=== PATIENT | male | born 1950 | race Caucasian/White ===

== ENCOUNTER 2018-12-23 08:46 | Observation (INO) ==
[2018-12-23] MEDS ORDERED: Ipratropium/Albuterol Neb 3 ML IH ONE (09:04)
[2018-12-23] MEDS ORDERED: 0.9 % Sodium Chloride 1,000 ML IVC ONE (09:04)
[2018-12-23 09:23] LABS: Basophils % 0.4 %; Hematocrit 32.1 % (37.5-50.1); Hemoglobin 10.6 g/dL (12.9-16.9); Immature Granulocytes % 0.4 % (0-4); Lymphocytes # 0.4 K/mcL (0.6-4.6); Lymphocytes % 8.5 %; Mean Corpuscular Hemoglobin 29.8 pg (28.0-33.3); Mean Corpuscular Volume 90.2 fL (83.0-100.0); Mean Platelet Volume 9.2 fL (9.4-12.4); Monocytes # 0.5 K/mcL (0.0-1.3); Monocytes % 11.3 %; Neutrophils # 3.7 K/mcL (1.6-8.9); Platelet Count 222 K/mcL (140-400); Red Blood Count 3.56 M/mcL (4.19-5.50); Red Cell Distribution Width 20.6 % (11.5-14.5); Segmented Neutrophils % 79.4 %
[2018-12-23 09:42] LABS: BUN/Creatinine Ratio 20 (6-26); Blood Urea Nitrogen 12 mg/dL (8-23); Calcium 8.5 mg/dL (8.6-10.3); Carbon Dioxide 28 mEq/L (23-29); Chloride 101 mEq/L (98-107); Glucose 99 mg/dL (70-105); Lactate Dehydrogenase 106 Units/L (140-271); Magnesium 1.8 mg/dL (1.6-2.6); Osmolality,Calculated 278 (280-300); Potassium 3.4 mEq/L (3.5-5.1); Sodium 134 mEq/L (136-145); eGFR For Non-African Americans > 60 (> 60)
--- NOTE | 2018-12-23 09:50 | Emergency Department Note ---
Disposition Clinical Impression: Hypotension Qualifiers: Hypotension type: unspecified hypotension type Qualified Code(s): I95.9 - Hypotension, unspecified Disposition: Admitted As Inpatient Condition: Undetermined Time of Disposition: 22:46 General Adult HPI - General Stated complaint: low bp Time Seen by Provider: 12/23/18 08:49 Source: patient Limitations: no limitations Nursing Notes Reviewed: Yes Vital Signs Reviewed: Yes - History of Present Illness HPI Narrative: 68-year-old male presenting from [place] [facility] for presyncopal episode. Patient with past medical history of lung cancer undergoing chemotherapy and radiation Patient stated that he was standing at his appointment today when he developed lightheadedness/dizziness, vision loss and tinnitus Patient's blood pressure was noted to be in the 60 systolic range was transported to the ED Upon presentation patient is normotensive, he is hemodynamically stable Patient with past medical history of asthma Denies any other past medical history Physical exam shows inspiratory next story wheezes Patient denies any other concerns or complaints at this time. Onset (ago): Just PLATE G[employer] AP[employer]ENTICE Pain Scale: 0 Associated symptoms: Reports: denies other symptoms - Related Data Home Medications Medication Instructions Recorded Confirmed Alendronate Sodium 70 mg PO MO 11/19/18 12/23/18 Calcium Carbonate 650 mg PO BID 11/19/18 12/23/18 Cholecalciferol (D-3) [Vitamin D] 2,000 units PO DAILY 11/19/18 12/23/18 Lisinopril [Zestril] 20 mg PO DAILY 11/19/18 12/23/18 hydroCHLOROthiazide 12.5 mg PO DAILY 11/19/18 12/23/18 [Hydrochlorothiazide] Albuterol Neb [Proventil Neb] 2.5 mg IH Q6H PRN 12/23/18 12/23/18 Albuterol Sulfate [Albuterol 2 puff PO Q4H PRN 12/23/18 12/23/18 Inhaler] Budesonide/Formoterol 160/4.5 2 puff IH BIDR 12/23/18 12/23/18 [Symbicort 160/4.5] Oxycodone HCl 5 mg PO Q6H PRN 12/23/18 12/23/18 Tiotropium [place] [Spiriva 4 gm IH DAILY 12/23/18 12/23/18 Respimat] Previous Rx's Medication Instructions Recorded Magic Mouthwash [Magic Mouthwash 10 ml PO QID PRN #240 ml 11/25/18 BLM] Ondansetron HCl 8 mg PO Q8H PRN #48 tablet 11/25/18 Prochlorperazine Maleate 10 mg PO Q6HR PRN #90 tablet 11/25/18 [Compazine] Dexamethasone [Decadron] 8 mg PO DAILY #24 tab 11/30/18 Allergies Allergy/AdvReac Type Severity Reaction Status Date / Time codeine Allergy Anaphylaxis Verified 12/23/18 22:22 fentanyl AdvReac Hallucinati Verified 12/23/18 22:22 ng All systems ED: reviewed and negative except as stated. Review of Systems: As Per HPI Constitutional: Denies: fever, chills Cardiovascular: Denies: chest pain Respiratory: Reports: dyspnea, wheezes Gastrointestinal: Reports: nausea. Denies: abdominal pain, vomiting, diarrhea, constipation, hematemesis, hematochezia Genitourinary: Denies: hematuria Musculoskeletal: Denies: back pain, neck pain Neurological: Reports: weakness. Denies: headache, numbness, paresthesias Past Medical History - Past Medical History Medical history: Reports: cancer, COPD, hypertension Psychiatric history: Reports: no psych history - Social History Smoking Status: Former smoker Smokeless Tobacco Status: No Alcohol use: Reports: none, heavy, recent Drug use: Reports: none Physical Exam - General Limitations: no limitations General appearance: alert, in no apparent distress - Head Head exam: atraumatic, normocephalic - Eye Eye exam: Present: normal appearance, PERRL, EOMI. Absent: scleral icterus - Neck Neck exam: Present: normal inspection, trachea midline - Chest Chest inspection: Present: normal inspection, symmetric chest wall rise. Absent: tenderness - Respiratory Respiratory exam: Present: wheezes. Absent: respiratory distress, stridor, accessory muscle use, prolonged expiratory phase - Cardiovascular Cardiovascular exam: Present: regular rate, normal rhythm, normal heart sounds, +S1, +S2. Absent: irregular rhythm, systolic murmur, diastolic murmur, JVD, +S3, +S4 - Abdominal Exam Abdominal exam: Present: soft, Non-Tender, normal bowel sounds. Absent: distention, guarding, rebound, rigidity, organomegaly - Extremities Exam Extremities exam: Present: normal inspection. Absent: pedal edema - Neurological Exam Neurological exam: Present: alert, oriented X3 - Psychiatric Psychiatric exam: Present: normal affect, normal mood - Skin Skin exam: Present: warm, dry, intact, normal color. Absent: rash, cyanosis, diaphoresis, erythema, pallor, mottled Course Course Narrative: CBC, BMP, magnesium, LDH, troponin Chest x-ray EKG/old EKG - Reevaluation(s) Reevaluation #1: Case patient continues to be short of breath with tachycardia and tachypnea despite DuoNeb's and steroid therapy. Concern for pulmonary embolism in this setting of recent cancer treatment We will obtain a d-dimer at this time due to moderate Wells score risk factor criterion. We will consult oncology for further recommendations. Time: 10:29 Vital Signs Temperature 98.5 F 12/23/18 08:56 Pulse Rate 107 12/23/18 08:56 Respiratory Rate 18 12/23/18 08:56 Blood Pressure 118/76 12/23/18 08:56 O2 Sat by Pulse Oximetry 98 12/23/18 08:56 Temperature 98.1 F 12/23/18 19:06 Pulse Rate 95 12/23/18 19:06 Respiratory Rate 15 12/23/18 19:06 Blood Pressure 145/76 12/23/18 19:06 O2 Sat by Pulse Oximetry 91 12/23/18 20:30 Oxygen Delivery Oxygen Delivery Nasal Cannula Medical Decision Making - [facility] Narrative Medical decision making narrative: Laboratory and imaging results are negative for acute pathology Patient continued to have tachycardia and dyspnea despite DuoNeb's Patient admitted to hospitalist medicine service for further management and tr eatment - Lab Data Lab results reviewed: Yes I reviewed the patient's lab results. Result diagrams: 12/23/18 09:12 12/23/18 09:12 Lab Results 12/23/18 12/23/18 12/23/18 Range/Units 09:12 09:12 09:12 WBC 4.6 (4.3-11.1) K/mcL RBC 3.56 L (4.19-5.50) M/mcL Hgb 10.6 L (12.9-16.9) g/dL Hct 32.1 L (37.5-50.1) % MCV 90.2 (83.0-100.0) fL MCH 29.8 (28.0-33.3) pg MCHC 33.0 (31.6-35.5) g/dL RDW 20.6 H (11.5-14.5) % Plt Count 222 (140-400) K/mcL MPV 9.2 L (9.4-12.4) fL Immature Gran % 0.4 (0-4) % Seg Neutrophils % 79.4 % Lymphocytes % 8.5 % Monocytes % 11.3 % Eosinophils % 0.0 % Basophils % 0.4 % Neutrophils # 3.7 (1.6-8.9) K/mcL Lymphocytes # 0.4 L (0.6-4.6) K/mcL Monocytes # 0.5 (0.0-1.3) K/mcL Eosinophils # 0.0 (0.0-0.6) K/mcL Basophils # 0.0 (0.0-0.2) K/mcL D-Dimer (0-500) ng/mLFEU Sodium 134 L (136-145) mEq/L Potassium 3.4 L (3.5-5.1) mEq/L Chloride 101 (98-107) mEq/L Carbon Dioxide 28 (23-29) mEq/L BUN 12 (8-23) mg/dL Creatinine 0.60 L (0.70-1.30) mg/dL Est GFR ( Amer) > 60 (> 60) Est GFR (Non-Af Amer) > 60 (> 60) BUN/Creatinine Ratio 20 (6-26) Glucose 99 (70-105) mg/dL Calculated Osmolality 278 L (280-300) Calcium 8.5 L (8.6-10.3) mg/dL Magnesium 1.8 (1.6-2.6) mg/dL Lactate Dehydrogenase 106 L (140-271) Units/L Troponin I < 0.03 (< 0.04) ng/mL 12/23/18 Range/Units 09:12 WBC (4.3-11.1) K/mcL RBC (4.19-5.50) M/mcL Hgb (12.9-16.9) g/dL Hct (37.5-50.1) % MCV (83.0-100.0) fL MCH (28.0-33.3) pg MCHC (31.6-35.5) g/dL RDW (11.5-14.5) % Plt Count (140-400) K/mcL MPV (9.4-12.4) fL Immature Gran % (0-4) % Seg Neutrophils % % Lymphocytes % % Monocytes % % Eosinophils % % Basophils % % Neutrophils # (1.6-8.9) K/mcL Lymphocytes # (0.6-4.6) K/mcL Monocytes # (0.0-1.3) K/mcL Eosinophils # (0.0-0.6) K/mcL Basophils # (0.0-0.2) K/mcL D-Dimer 1223 H (0-500) ng/mLFEU Sodium (136-145) mEq/L Potassium (3.5-5.1) mEq/L Chloride (98-107) mEq/L Carbon Dioxide (23-29) mEq/L BUN (8-23) mg/dL Creatinine (0.70-1.30) mg/dL Est GFR ( Amer) (> 60) Est GFR (Non-Af Amer) (> 60) BUN/Creatinine Ratio (6-26) Glucose (70-105) mg/dL Calculated Osmolality (280-300) Calcium (8.6-10.3) mg/dL Magnesium (1.6-2.6) mg/dL Lactate Dehydrogenase (140-271) Units/L Troponin I (< 0.04) ng/mL - Radiology Data Radiology results reviewed: Yes I reviewed the patient's radiology results. Chest X-Ray 12/23/18 09:04 IMPRESSION: 1. Improving left hilar mass and improving left upper lobe irregular opacities some of which likely represented postobstructive pneumonia. 2. Interval placement of a left mainstem bronchial stent which appears to be in appropriate position. 3. No acute abnormality. D/ / 12/23/2018 09:43:06 Tim Simons MD / Thelma Rivera Interpreting Provider: Tim Simons MD - EKG Data EKG #1 EKG attestation: Yes I reviewed and interpreted this EKG. EKG results narrative: Patient EKG shows sinus tachycardia with a first degree AV lito block. Ventricular rate is 103 bpm, RI interval is 213 ms, QRS duration of 90 ms, QT/QTc interval 3/447 ms respectively. There are no significant ST segment elevations, depressions, pathologic Q waves, abnormal T-wave inversions, nor any other signs of acute ischemic change. At this time there is no prior EKG available for comparison.
[2018-12-23] MEDS ORDERED: methylPREDNISolone 125 MG/2 ML VIAL IVP ONE (09:51)
--- NOTE | 2018-12-23 09:54 | Emergency Department Note ---
Disposition Clinical Impression: Hypotension Qualifiers: Hypotension type: unspecified hypotension type Qualified Code(s): I95.9 - Hypotension, unspecified Disposition: Still a Patient [facility]Primary Care Provider[facility] - General Adult HPI - General Chief complaint: ED Weakness Stated complaint: low bp Time Seen by Provider: 12/23/18 08:49 Source: patient Limitations: no limitations Nursing Notes Reviewed: Yes Vital Signs Reviewed: Yes - History of Present Illness HPI Narrative: Attestation note: Patient was seen with the emergency medicine resident/nurse practitioner/physician timber management assistant/transitional resident/medical student: Dr. Niles Pnoce I have personally performed a face to face evaluation on this patient. I have reviewed and agree with history and physical examination patient management and disposition. Briefly the salient points of the case are as follows: 68-year-old male recently diagnosed with lung cancer on week 3 of chemotherapy was at the cancer patient will get DuoNeb treatments chest x-ray PA and lateral troponin CBC BMP. Patient will also get over liter normal saline fluid bolus. We will then consult with oncology for recommendations. Disposition pending about to get another round of his vital signs he said that he felt like near syncopal with ringing in the ears dimming of his vision his systolic was 60 something per report. They transported by ambulance here upon arrival systolic has remained 118 or higher physical examination such some faint scattered wheezes is benign Pain Scale: 0 - Related Data Home Medications Medication Instructions Recorded Confirmed Alendronate Sodium 70 mg PO Q1W 11/19/18 11/19/18 Calcium Carbonate 650 mg PO BID 11/19/18 11/19/18 Cholecalciferol (D-3) [Vitamin D] 2 tab PO DAILY 11/19/18 11/19/18 Ipratropium/Albuterol Sulfate 3 ml IH Q4H PRN 11/19/18 11/19/18 [Iprat-Albut 0.5-3(2.5) mg/3 ml] Lisinopril [Zestril] 1.5 tab PO DAILY 11/19/18 11/19/18 Promethazine HCl 25 mg PO Q6H PRN 11/19/18 11/19/18 Tamsulosin HCl [Flomax] 0.4 mg PO QPM 11/19/18 11/19/18 Tiotropium [Spiriva] 18 mcg IH DAILY 11/19/18 11/19/18 hydroCHLOROthiazide 1.5 tab PO DAILY 11/19/18 11/19/18 [Hydrochlorothiazide] Previous Rx's Medication Instructions Recorded guaiFENesin [Mucus Relief ER] 600 mg PO BID PRN #60 tab.er.12h 11/19/18 levoFLOXacin [Levaquin] 750 mg PO DAILY #14 tablet 11/19/18 Magic Mouthwash [Magic Mouthwash 10 ml PO QID PRN #240 ml 11/25/18 BLM] Ondansetron HCl 8 mg PO Q8H PRN #48 tablet 11/25/18 Prochlorperazine Maleate 10 mg PO Q6HR PRN #90 tablet 11/25/18 [Compazine] Dexamethasone [Decadron] 8 mg PO DAILY #24 tab 11/30/18 OxyCODONE Immed Rel [Roxicodone 5 5 mg PO Q6HR PRN 15 Days #60 tablet 12/16/18 MG] Allergies Allergy/AdvReac Type Severity Reaction Status Date / Time codeine Allergy See Verified 11/19/18 11:17 Comments fentanyl AdvReac Agitated Verified 11/19/18 11:11 Past Medical History - Past Medical History Medical history: Reports: cancer, COPD, hypertension Psychiatric history: Reports: no psych history - Social History Smoking Status: Former smoker Smokeless Tobacco Status: No Alcohol use: Reports: none, heavy, recent Drug use: Reports: none Physical Exam - General Limitations: no limitations General appearance: alert, in no apparent distress Course Vital Signs Temperature 98.5 F 12/23/18 08:56 Pulse Rate 107 12/23/18 08:56 Respiratory Rate 18 12/23/18 08:56 Blood Pressure 118/76 12/23/18 08:56 O2 Sat by Pulse Oximetry 98 12/23/18 08:56 Temperature 98.5 F 12/23/18 08:56 Pulse Rate 107 12/23/18 08:56 Respiratory Rate 18 12/23/18 09:42 Blood Pressure 118/76 12/23/18 08:56 O2 Sat by Pulse Oximetry 98 12/23/18 09:42 Oxygen Delivery Oxygen Delivery Nasal Cannula Medical Decision Making - Lab Data Result diagrams: 12/23/18 09:12 12/23/18 09:12 Lab Results 12/23/18 12/23/18 12/23/18 Range/Units 09:12 09:12 09:12 WBC 4.6 (4.3-11.1) K/mcL RBC 3.56 L (4.19-5.50) M/mcL Hgb 10.6 L (12.9-16.9) g/dL Hct 32.1 L (37.5-50.1) % MCV 90.2 (83.0-100.0) fL MCH 29.8 (28.0-33.3) pg MCHC 33.0 (31.6-35.5) g/dL RDW 20.6 H (11.5-14.5) % Plt Count 222 (140-400) K/mcL MPV 9.2 L (9.4-12.4) fL Immature Gran % 0.4 (0-4) % Seg Neutrophils % 79.4 % Lymphocytes % 8.5 % Monocytes % 11.3 % Eosinophils % 0.0 % Basophils % 0.4 % Neutrophils # 3.7 (1.6-8.9) K/mcL Lymphocytes # 0.4 L (0.6-4.6) K/mcL Monocytes # 0.5 (0.0-1.3) K/mcL Eosinophils # 0.0 (0.0-0.6) K/mcL Basophils # 0.0 (0.0-0.2) K/mcL Sodium 134 L (136-145) mEq/L Potassium 3.4 L (3.5-5.1) mEq/L Chloride 101 (98-107) mEq/L Carbon Dioxide 28 (23-29) mEq/L BUN 12 (8-23) mg/dL Creatinine 0.60 L (0.70-1.30) mg/dL Est GFR ( Amer) > 60 (> 60) Est GFR (Non-Af Amer) > 60 (> 60) BUN/Creatinine Ratio 20 (6-26) Glucose 99 (70-105) mg/dL Calculated Osmolality 278 L (280-300) Calcium 8.5 L (8.6-10.3) mg/dL Magnesium 1.8 (1.6-2.6) mg/dL Lactate Dehydrogenase 106 L (140-271) Units/L Troponin I < 0.03 (< 0.04) ng/mL
[2018-12-23] MEDS ORDERED: Isovue-370 500 ML BOTTLE IVP ONE (10:59)
[2018-12-23] MEDS ORDERED: Ondansetron 4 MG/2 ML VIAL IVP PRN (15:23)
[2018-12-23] MEDS ORDERED: MOM Conc 10 ML UD.LIQ PO PRN (15:23)
[2018-12-23] MEDS ORDERED: *HR* Promethazine 25 MG/ML VIAL IVP PRN (15:23)
[2018-12-23] MEDS ORDERED: Mag Hydrox/Al Hydrox/Simeth 30 ML UDC PO PRN (15:23)
[2018-12-23] MEDS ORDERED: Naloxone 0.4 MG/ML INJ IVP PRN (15:23)
[2018-12-23] MEDS ORDERED: Acetaminophen 325 MG TABLET PO PRN (15:23)
[2018-12-23] MEDS ORDERED: traMADol 50 MG TABLET PO PRN (15:23)
[2018-12-23] MEDS ORDERED: Ipratropium/Albuterol Neb 3 ML IH PRN (15:26)
[2018-12-23] MEDS ORDERED: Prochlorperazine 10 MG/2 ML VIAL IVP PRN (15:28)
[2018-12-23] MEDS ORDERED: Ringers Solution, Lactated 2,000 ML IVC SCH (15:30)
--- NOTE | 2018-12-23 15:34 | Internal Med History&Physical ---
Date of Encounter: 12/23/18 Time of Encounter: 15:34 Internal Medicine - H&P: HPI Admitted From: Home Plans for Post Hospital Care: Home History of present illness: Mr. Arevalo is a 68 year old male with past medical history of hypertension, recently diagnosed lung cancer, and a current smoker presented with generalized weakness, lightheadedness, and presyncope. Patient recently was diagnosed with lung cancer and currently undergone chemotherapy and irradiation. He reported that he did not feel well this morning after up. He had appointment with oncology today, while in the waiting area, he had several episodes of presyncope and lightheadedness. The blood pressure was taking and was reported to be at the 60s. Patient was transferred to [place] ED. He has no associated chest pain, shortness of breath, cough with sputum production, and palpitation. He has been eating and drinking well in the past couple days. He denies abdominal pain, nausea/vomiting, or diarrhea. His urine volume has not been changed. While in the ED, patient received IV fluid bolus, his blood pressure was within normal limits. However, and orthostatic vital signs recorded at the ED was positive. Labs showed elevated d-dimer, decreased sodium and potassium. CTA of chest was performed which was negative for pulmonary embolism. Bilateral wheezing was heard on physical exam by ED providers, patient received IV steroids and bronchodilators, he will be admitted for further evaluation and management. CODE STATUS discussed with patient, he wishes to be full code. Past Med Surg Social Fam HX - Past Medical History Medical history: cancer, COPD, hypertension Additional medical history: left CA tumor Psychiatric history: no psych history - Past Surgical History Additional surgical history: left tumor intervention for CA involving stent placement- 10/2018 - Social History Smoking Status: Former smoker Smokeless Tobacco Status: No Alcohol use: none, heavy, recent Drug use: none Internal Medicine - H&P: Meds Alendronate Sodium 70 mg PO Q1W 11/19/18 [History] Calcium Carbonate 650 mg PO BID 11/19/18 [History] Cholecalciferol (D-3) [Vitamin D] 2 tab PO DAILY 11/19/18 [History] Ipratropium/Albuterol Sulfate [Iprat-Albut 0.5-3(2.5) mg/3 ml] 3 ml IH Q4H PRN 11/19/18 [History] Lisinopril [Zestril] 1.5 tab PO DAILY 11/19/18 [History] Promethazine HCl 25 mg PO Q6H PRN 11/19/18 [History] Tamsulosin HCl [Flomax] 0.4 mg PO QPM 11/19/18 [History] Tiotropium [Spiriva] 18 mcg IH DAILY 11/19/18 [History] guaiFENesin [Mucus Relief ER] 600 mg PO BID PRN #60 tab.er.12h 11/19/18 [Rx] hydroCHLOROthiazide [Hydrochlorothiazide] 1.5 tab PO DAILY 11/19/18 [History] levoFLOXacin [Levaquin] 750 mg PO DAILY #14 tablet 11/19/18 [Rx] Magic Mouthwash [Magic Mouthwash BLM] 10 ml PO QID PRN #240 ml 11/25/18 [Rx] Ondansetron HCl 8 mg PO Q8H PRN #48 tablet 11/25/18 [Rx] Prochlorperazine Maleate [Compazine] 10 mg PO Q6HR PRN #90 tablet 11/25/18 [Rx] Dexamethasone [Decadron] 8 mg PO DAILY #24 tab 11/30/18 [Rx] OxyCODONE Immed Rel [Roxicodone 5 MG] 5 mg PO Q6HR PRN 15 Days #60 tablet 12/16/18 [Rx] Allergy/AdvReac Type Severity Reaction Status Date / Time codeine Allergy See Verified 11/19/18 11:17 Comments fentanyl AdvReac Agitated Verified 11/19/18 11:11 All Systems PM: A 10-system review of systems was performed and is negative for pertinent findings except as documented above in the HPI. Review of systems: REVIEW OF SYSTEMS: CONSTITUTIONAL: No weight loss, fever, chills, weakness or fatigue. HEENT: Eyes: No visual loss, blurred vision, double vision or yellow sclerae. Ears, Nose, Throat: No hearing loss, sneezing, congestion, runny nose or sore throat. SKIN: No rash or itching. CARDIOVASCULAR: see HPI. RESPIRATORY: No shortness of breath, cough or sputum. see HPI. GASTROINTESTINAL: No anorexia, nausea, vomiting or diarrhea. No abdominal pain or blood. GENITOURINARY: No dysuria, urgency, or frequency. NEUROLOGICAL: No headache, dizziness, syncope, paralysis, ataxia, numbness or tingling in the extremities. No change in bowel or bladder control. MUSCULOSKELETAL: No muscle, back pain, joint pain or stiffness. HEMATOLOGIC: No anemia, bleeding or bruising. LYMPHATICS: No enlarged nodes. No history of splenectomy. PSYCHIATRIC: No history of depression or anxiety. ENDOCRINOLOGIC: No reports of sweating, cold or heat intolerance. No polyuria or polydipsia. - Constitutional Vitals: Temp Pulse Resp BP Pulse Ox 98.5 F 94 24 152/81 99 12/23/18 08:56 12/23/18 13:50 12/23/18 13:50 12/23/18 13:50 12/23/18 13:50 General appearance: Present: A&O X 3 Exam: PHYSICAL EXAMINATION: GENERAL APPEARANCE: The patient is alert, oriented and in no acute distress. HEENT: Head is normocephalic. The sinuses are nontender. Pupils are equal and reactive. The nares are patent. Oropharynx clear without lesions. NECK: Supple without lymphadenopathy. HEART: Regular rate and rhythm. LUNGS: bilateral diffuse wheezes are heard. ABDOMEN: Soft, nontender, nondistended with good bowel sounds heard. Inguinal area is normal. EXTREMITIES: Without cyanosis, clubbing or edema. NEUROLOGICAL: Gross nonfocal. SKIN: Warm and dry without any rash. Internal Med - H&P Results - Labs CBC & Chem 7: 12/23/18 09:12 12/23/18 09:12 Labs: Short CBC 12/23/18 Range/Units 09:12 WBC 4.6 (4.3-11.1) K/mcL Hgb 10.6 L (12.9-16.9) g/dL Hct 32.1 L (37.5-50.1) % Plt Count 222 (140-400) K/mcL Neutrophils # 3.7 (1.6-8.9) K/mcL BMP 12/23/18 09:12 Sodium 134 L Potassium 3.4 L Chloride 101 Carbon Dioxide 28 BUN 12 Creatinine 0.60 L Glucose 99 Calcium 8.5 L Cardiac Enzymes 12/23/18 Range/Units 09:12 Troponin I < 0.03 (< 0.04) ng/mL - Impressions ITS Impressions Chest X-Ray 12/23/18 09:04 IMPRESSION: 1. Improving left hilar mass and improving left upper lobe irregular opacities some of which likely represented postobstructive pneumonia. 2. Interval placement of a left mainstem bronchial stent which appears to be in appropriate position. 3. No acute abnormality. D/ / 12/23/2018 09:43:06 Tim Simons MD / Thelma Rivera Interpreting Provider: Tim Simons MD Chest CTA 12/23/18 10:59 IMPRESSION: 1. No pulmonary embolism. No acute abnormality in the chest. 2. Stable left hilar mass and hypermetabolic left lower lobe pulmonary nodules, which have been recently evaluated with PET-CT. 3. The left mainstem bronchial stent contains secretions, but is otherwise patent. D/ / 12/23/2018 13:03:35 Spencer Cano MD / nichole Interpreting Provider: Spencer Cano MD - Assessment and Plan (1) Pre-syncope Current Visit: Yes Status: Acute Assessment and plan: 68-year-old male recently diagnosed with lung cancer, currently undergone chemotherapy and radiation, presented with several episodes of lightheadedness and presyncope. BP was reported to be low prior to admission. CTA was negative for PE. Positive orthostatic vital signs. Underlying etiology is likely due to physical deconditioning secondary to chemotherapy and radiation. Patient does not have history of cardiovascular disease. Troponin was negative on the first set, EKG has no acute ST-T change. Patient recently was started on narcotics for lung cancer, medication side effect possibly contributes. - Continue cycling troponin, telemetry monitoring, EKG as needed. - Echo in the morning. Carotid Doppler in the morning. - TSH, free T4, random cortisol in the morning. - Encouraged to increase salt intake and drink plenty of water. (2) Current smoker Current Visit: No Status: Chronic Assessment and plan: Smoking cessation discussed with patient, he verbally understands. (3) Hypertension Current Visit: No Status: Chronic Assessment and plan: Hold her blood pressure medicine, resume once indicated. Qualifiers: Hypertension type: essential hypertension Qualified Code(s): I10 - Essential (primary) hypertension (4) COPD (chronic obstructive pulmonary disease) Current Visit: Yes Status: Chronic Assessment and plan: Respiratory status stable, continue home medications. Qualifiers: Emphysema type: unspecified Qualified Code(s): J43.9 - Emphysema, unspecified (5) Hypokalemia Current Visit: Yes Status: Acute Assessment and plan: Replaced, repeat a BMP in a.m. (6) Lung cancer Current Visit: No Status: Chronic Assessment and plan: Oncology following. Qualifiers: Laterality: unspecified laterality Lung location: unspecified part of lung Qualified Code(s): C34.90 - Malignant neoplasm of unspecified part of unspec ified bronchus or lung (7) DVT prophylaxis Current Visit: Yes Status: Acute Assessment and plan: Heparin subcutaneous. - Time Spent With Patient Total time spent is greater than 50% in coordination of care (as documented) at patient's floor/unit and/or counseling patient: Greater than 35 minutes
[2018-12-23] MEDS: *HR* Heparin 5,000 UNIT/ML VIAL SQ SCH (20:21)
[2018-12-23] MEDS ORDERED: Perflutren Lipid Microsphere 1.3 ML in 0.9 % Sodium Chloride 8.7 ML IVP ONE (20:33)
[2018-12-23] MEDS: Ipratropium/Albuterol Neb 3 ML IH SCH ×2 (20:38→22:02)
[2018-12-23] MEDS: Budesonide/Formoterol 160/4.5 1 PUFF INH IH SCH (22:02)
[2018-12-23] MEDS ORDERED: Acetaminophen IV 500 MG/50 ML INFUS..BTL IVPB ONE (23:18)
[2018-12-24] MEDS: Ipratropium/Albuterol Neb 3 ML IH SCH ×2 (02:32→10:48)
[2018-12-24 05:37] LABS: Hemoglobin 9.4 g/dL (12.9-16.9); Immature Granulocytes % 0.6 % (0-4); Lymphocytes # 0.2 K/mcL (0.6-4.6); Lymphocytes % 4.5 %; Mean Corpuscular HGB Conc 33.6 g/dL (31.6-35.5); Mean Corpuscular Hemoglobin 29.7 pg (28.0-33.3); Mean Corpuscular Volume 88.3 fL (83.0-100.0); Mean Platelet Volume 9.3 fL (9.4-12.4); Monocytes # 0.5 K/mcL (0.0-1.3); Monocytes % 10.7 %; Neutrophils # 4.2 K/mcL (1.6-8.9); Platelet Count 198 K/mcL (140-400); Red Blood Count 3.17 M/mcL (4.19-5.50); Red Cell Distribution Width 20.4 % (11.5-14.5); Segmented Neutrophils % 84.2 %
[2018-12-24 05:53] LABS: Alanine Aminotransferase 11 Units/L (7-52); Albumin 3.1 g/dL (3.5-5.7); Albumin/Globulin Ratio 1.3 (1.1-2.2); Alkaline Phosphatase 75 Units/L (34-104); Aspartate Amino Transferase 16 Units/L (13-39); BUN/Creatinine Ratio 35 (6-26); Bilirubin,Total 0.4 mg/dL (0.3-1.0); Blood Urea Nitrogen 13 mg/dL (8-23); Calcium 8.2 mg/dL (8.6-10.3); Carbon Dioxide 28 mEq/L (23-29); Chloride 100 mEq/L (98-107); Globulin 2.4 g/dL (2.4-3.5); Glucose 108 mg/dL (70-105); Osmolality,Calculated 273 (280-300); Potassium 4.3 mEq/L (3.5-5.1); Sodium 131 mEq/L (136-145); Total Protein 5.5 g/dL (6.4-8.9); eGFR For Non-African Americans > 60 (> 60)
[2018-12-24 06:06] LABS: Thyroid Stimulating Hormone 0.872 mcIU/mL (0.340-5.600)
[2018-12-24] MEDS: *HR* Heparin 5,000 UNIT/ML VIAL SQ SCH (07:50)
[2018-12-24] MEDS ORDERED: Nicotine 14 MG PATCH.TD24 TD SCH (09:00)
[2018-12-24] MEDS ORDERED: Aspirin Enteric Coated 81 MG Tablet PO SCH (09:00)
[2018-12-24] MEDS ORDERED: Cholecalciferol (D-3) 1,000 UNIT TABLET PO SCH (09:00)
[2018-12-24] MEDS ORDERED: Tiotropium 18 MCG inhalation IH SCH (10:00)
--- NOTE | 2018-12-24 10:02 | Discharge Summary ---
- NOTES TO OUTPATIENT PROVIDER Notes to Outpatient Provider: f/u with PCP and oncology within a week. Date of Encounter: 12/24/18 Time of Encounter: 09:59 - Discharge Diagnosis (1) Pre-syncope Priority: Primary Status: Acute (2) Current smoker Priority: Secondary Status: Chronic (3) Hypertension Priority: Secondary Status: Chronic Qualifiers: Hypertension type: essential hypertension Qualified Code(s): I10 - Essential (primary) hypertension (4) COPD (chronic obstructive pulmonary disease) Priority: Secondary Status: Chronic Qualifiers: Emphysema type: unspecified Qualified Code(s): J43.9 - Emphysema, unspecified (5) Hypokalemia Priority: Primary Status: Resolved (6) Lung cancer Priority: Secondary Status: Chronic Qualifiers: Laterality: unspecified laterality Lung location: unspecified part of lung Qualified Code(s): C34.90 - Malignant neoplasm of unspecified part of unspecified bronchus or lung (7) DVT prophylaxis Priority: Primary Status: Acute Hospital course: Mr. Arevalo is a 68 year old male with past medical history of hypertension, recently diagnosed lung cancer, and a current smoker presented with generalized weakness, lightheadedness, and presyncope. Patient recently was diagnosed with lung cancer and currently undergone chemotherapy and irradiation. He reported that he did not feel well this morning after up. He had appointment with oncology today, while in the waiting area, he had several episodes of presyncope and lightheadedness. The blood pressure was taking and was reported to be at the 60s. Patient was transferred to [facility] ED. He has no associated chest pain, shortness of breath, cough with sputum production, and palpitation. He has been eating and drinking well in the past couple days. He denies abdominal pain, nausea/vomiting, or diarrhea. His urine volume has not been changed. While in the ED, patient received IV fluid bolus, his blood pressure was within normal limits. However, and orthostatic vital signs recorded at the ED was positive. Labs showed elevated d-dimer, decreased sodium and potassium. CTA of chest was performed which was negative for pulmonary embolism. Bilateral wheezi ng was heard on physical exam by ED providers, patient received IV steroids and bronchodilators, he will be admitted for further evaluation and management. Further workup for syncope revealed negative serial troponin, unremarkable EKG without ST-T change, unremarkable unremarkable echocardiogram with ejection fraction 65% and mild LV DD, no valvular disease. Labs showed normal TSH and a slightly low T4. Random cortisol in a.m. was low, which is most likely secondary to recent dexamethasone usage. Patient was encouraged to increase salt intake and maintain well hydration. Patient is discharged home today, he will continue to follow-up PCP and oncology as scheduled. Discharge discussed with: patient Time spent discussing smoking cessation with patient: more than 10 minutes - Time Spent with Patient Total time spent providing and/or coordinating discharge services: Time spent: Greater than 30 minutes - Discharge Medications Prescriptions: Continued Alendronate Sodium 70 mg PO MO Lisinopril [Zestril] 20 mg PO DAILY Cholecalciferol (D-3) [Vitamin D] 2,000 units PO DAILY Calcium Carbonate 650 mg PO BID Prochlorperazine Maleate [Compazine] 10 mg PO Q6HR PRN #90 tablet PRN Reason: Nausea Magic Mouthwash [Magic Mouthwash BLM] 10 ml PO QID PRN #240 ml PRN Reason: Mouth Irritation Ondansetron HCl 8 mg PO Q8H PRN #48 tablet PRN Reason: Nausea Dexamethasone [Decadron] 8 mg PO DAILY #24 tab Budesonide/Formoterol 160/4.5 [Symbicort 160/4.5] 2 puff IH BIDR Tiotropium [place] [Spiriva Respimat] 4 gm IH DAILY Albuterol Neb [Proventil Neb] 2.5 mg IH Q6H PRN PRN Reason: BREATHING Albuterol Sulfate [Albuterol Inhaler] 2 puff PO Q4H PRN PRN Reason: Shortness Of Breath Oxycodone HCl 5 mg PO Q6H PRN PRN Reason: Pain Discontinued hydroCHLOROthiazide [Hydrochlorothiazide] 12.5 mg PO DAILY Home Medications: Alendronate Sodium 70 mg PO MO 11/19/18 [History] Calcium Carbonate 650 mg PO BID 11/19/18 [History] Cholecalciferol (D-3) [Vitamin D] 2,000 units PO DAILY 11/19/18 [History] Lisinopril [Zestril] 20 mg PO DAILY 11/19/18 [History] Magic Mouthwash [Magic Mouthwash BLM] 10 ml PO QID PRN #240 ml 11/25/18 [Rx] Ondansetron HCl 8 mg PO Q8H PRN #48 tablet 11/25/18 [Rx] Prochlorperazine Maleate [Compazine] 10 mg PO Q6HR PRN #90 tablet 11/25/18 [Rx] Dexamethasone [Decadron] 8 mg PO DAILY #24 tab 11/30/18 [Rx] Albuterol Neb [Proventil Neb] 2.5 mg IH Q6H PRN 12/23/18 [History] Albuterol Sulfate [Albuterol Inhaler] 2 puff PO Q4H PRN 12/23/18 [History] Budesonide/Formoterol 160/4.5 [Symbicort 160/4.5] 2 puff IH BIDR 12/23/18 [History] Oxycodone HCl 5 mg PO Q6H PRN 12/23/18 [History] Tiotropium [place] [Spiriva Respimat] 4 gm IH DAILY 12/23/18 [History] Allergies/Adverse Reactions: Allergy/AdvReac Type Severity Reaction Status Date / Time codeine Allergy Anaphylaxis Verified 12/23/18 22:22 fentanyl AdvReac Hallucinati Verified 12/23/18 22:22 ng Date of admission: 12/23/18 15:15 [facility] physician: [facility] Consults: 12/23/18 10:45 Consult to Oncology [CONS] Stat Consulting Provider: [facility] Reason for Consult: History of lung cancer on chemotherapy/rads Shortness of breath Hypotension, presyncopal episode. Time Notified: 10:46 Call Completed: Yes 12/23/18 17:31 Consult to Pastoral Services [CONS] Routine Comment: Anticipated date of discharge: 12/24/18 - Constitutional Vitals: Temp Pulse Resp BP Pulse Ox 97.6 F 74 16 142/77 95 12/24/18 06:33 12/24/18 06:33 12/24/18 06:33 12/24/18 06:33 12/24/18 06:33 General appearance: Present: A&O X 3 Exam: PHYSICAL EXAMINATION: GENERAL APPEARANCE: The patient is alert, oriented and in no acute distress. HEENT: Head is normocephalic. The sinuses are nontender. Pupils are equal and reactive. The nares are patent. Oropharynx clear without lesions. NECK: Supple without lymphadenopathy. HEART: Regular rate and rhythm. LUNGS: bilateral diffuse wheezes are heard. ABDOMEN: Soft, nontender, nondistended with good bowel sounds heard. Inguinal area is normal. EXTREMITIES: Without cyanosis, clubbing or edema. NEUROLOGICAL: Gross nonfocal. SKIN: Warm and dry without any rash. - Patient Status Disposition: Home, Self-Care Condition: Fair Functional capacity at discharge: independent ambulation Overall status at discharge: patient is progressing back to baseline - Discharge Instructions Follow Up With: [facility] [Primary Care Provider] - - Diet and Activity Activity: increase activity as tolerated Diet: advance to your usual diet
[2018-12-24 10:11] VITALS: BP 137/79
[2018-12-24] MEDS: Budesonide/Formoterol 160/4.5 1 PUFF INH IH SCH (10:48)
--- NOTE | 2018-12-24 12:06 | Oncology Inp Consult Note ---
Date of Encounter: 12/24/18 Time of Encounter: 14:00 Assessment and Plan (1) Lung cancer Status: Chronic Assessment and plan: Squamous cell carcinoma status post bronchoscopy biopsy of the left hilar mass left upper lobe bronchial washings, consolidation, recurrent pneumonia episode recently. PET uptake lt hilar mass, other nodules cavitary infectious likely than mets. Lytic lesion iliac-wo uptake. MRI brain neg [id number], stage IIb s/p BINDERY OPERATOR low dose carbbo taxol wk1--12/14/18, Was to continue with wkly Rx, patient was feeling very wk when he returned 12/23/18 for treatment Hypotension, A fib-tachycardia, SOB--will be further evaluated in the ER. R/O PE?COPD exacerbation/dehydration History of A. fib PTSD depression, on medications. Will be evaluated in the hospital and f/u. Plan d.w patient bedside Qualifiers: Laterality: unspecified laterality Lung location: unspecified part of lung Qualified Code(s): C34.90 - Malignant neoplasm of unspecified part of unspecified bronchus or lung - Data of Consult Requesting Physician: Kristyn Tapia MD Primary Care Provider: [facility] - Consult Narrative Reason for consult: lung ca, hypotension History of present illness: HPI 68-year-old male with medical history significant for hypertension, atrial fibrillation, esophageal reflux, depression, posttraumatic stress disorder, currently on home oxygen, recurrent episodes, hospitalization for pneumonia since beginning of September 2018. Patient was hospitalized in September with pneumonia, hemoptysis and shortness of breath underwent imaging studies was treated for pneumonia was discharged home he was rehospitalized few days later. Patient had undergone a repeat CT scan and pulmonary evaluation at that time. Lesion most recently was hospitalized and discharged home yesterday for complaints of chronic cough,? Hemoptysis. Patient reports that his hemoptysis has resolved his cough is has clear expectoration currently. Patient underwent CT scan of the chest that showed left lung consolidation left hilar lymphadenopathy, repeat CT scan has showed left hilar mass increasing in size concerning for neoplasm left upper lobe consolidation and a decrease in size interval development of 5 peribronchial airspace densities in the right upper and right lower. A bronchoscopy biopsy showed non-small cell lung cancer, consistent with squamous cell carcinoma. Patient had been evaluated at [place] by oncology through the [facility]. Patient reports that he recommended a PET scan and possibly chemoradiation after. MRI brain no mets. PET imaging shows uptake in the left hilar mass, cavitary nodules in the left lung. He started BINDERY OPERATOR on 12/23/18, tolerated wk1 well-12/14/18. ROS: c/o dizziness, worsening SOB. Evaluated to r/o sepsis, PE/COPD exacerbation/cardiac even He is feeling wk and unable to sit up. He denied nausea/poor intake or diarrhea. Past Med Surg Social Fam HX - Past Medical History Medical history: cancer, COPD, hypertension Additional medical history: left lung CA tumor- Squamous Non small cell lung cancer Psychiatric history: no psych history - Past Surgical History Additional surgical history: left tumor intervention for CA involving stent pl acement- 10/2018 - Social History Smoking Status: Former smoker Smokeless Tobacco Status: No Alcohol use: none, heavy, recent Drug use: none - Family History Mother Hx Family Cancer: Yes (colon) Medications and Allergies Alendronate Sodium 70 mg PO MO 11/19/18 [History] Calcium Carbonate 650 mg PO BID 11/19/18 [History] Cholecalciferol (D-3) [Vitamin D] 2,000 units PO DAILY 11/19/18 [History] Lisinopril [Zestril] 20 mg PO DAILY 11/19/18 [History] Magic Mouthwash [Magic Mouthwash BLM] 10 ml PO QID PRN #240 ml 11/25/18 [Rx] Ondansetron HCl 8 mg PO Q8H PRN #48 tablet 11/25/18 [Rx] Prochlorperazine Maleate [Compazine] 10 mg PO Q6HR PRN #90 tablet 11/25/18 [Rx] Dexamethasone [Decadron] 8 mg PO DAILY #24 tab 11/30/18 [Rx] Albuterol Neb [Proventil Neb] 2.5 mg IH Q6H PRN 12/23/18 [History] Albuterol Sulfate [Albuterol Inhaler] 2 puff PO Q4H PRN 12/23/18 [History] Budesonide/Formoterol 160/4.5 [Symbicort 160/4.5] 2 puff IH BIDR 12/23/18 [History] Oxycodone HCl 5 mg PO Q6H PRN 12/23/18 [History] Tiotropium [place] [Spiriva Respimat] 4 gm IH DAILY 12/23/18 [History] Allergy/AdvReac Type Severity Reaction Status Date / Time codeine Allergy Anaphylaxis Verified 12/23/18 22:22 fentanyl AdvReac Hallucinati Verified 12/23/18 22:22 ng Review of systems: per HPI and below Constitutional: Present: fatigue Cardiovascular: Present: lightheadedness, palpitations Respiratory: Present: dyspnea on exertion Oncology - Exam - Constitutional Exam: Physical Exam: General: Alert and oriented, thin built, on O2 NC Mental Status: Affect appropriate for circumstances HEENT: Sclerae anicteric.Dry mucosa Skin: No rashes or petechiae. Lymph nodes: No cervical, supraclavicular, axillary adenopathy. Lungs: Juliocesar ae, wheeze+ Cardiovascular: Regular rate and rhythm. Abdomen: Soft, nontender; no organomegaly Extremities: No edema. No calf swelling or tenderness. Neurologic: Alert, cranial nerves II-XII intact; no focal weakness Consult Discharge Plan - Plan Referrals: [facility],PCP [Primary Care Provider] - Inpatient Charges Provider: Dr. Key Burgess Consult - Inpatient: [id number]
--- NOTE | 2018-12-27 13:46 | Electrocardiograph Report ---
[facility] Test Date: 2018-12-23 Pat Name: Abner Arevalo Department: EXAM14 Room: [facility] Gender: M Compliance Testing Analyst: : 1950 Requested By: Niles Ponce Order Number: [id number] Reading MD: Kobi Bradshaw Measurements Intervals [place] Rate: 103 P: 92 LA: 213 QRS: 82 QRSD: 91 T: 78 QT: 341 QTc: 447 Interpretive Statements Sinus tachycardia Prolonged LA interval Right atrial enlargement Electronically Signed On 12-27-2018 13:45:00 EDT by Kobi Bradshaw
== END 2018-12-24 13:36 | disposition home or self-care (01) ==
LOC: 3NENU 08:46 → EMEROOARM 08:46 → 3NENU 16:33
PROVIDERS: ADMIT Internal Medicine; ATTEND Internal Medicine

== ENCOUNTER 2019-03-09 16:18 | Observation (INO) ==
--- NOTE | 2019-03-09 16:33 | Emergency Department Note ---
Disposition Clinical Impression: Intractable pain, Bronchitis, Dehydration Shingles Qualifiers: Herpes zoster complications: without complications Qualified Code(s): B02.9 - Zoster without complications Nausea & vomiting Qualifiers: Vomiting type: unspecified Vomiting Intractability: unspecified Qualified Code(s): R11.2 - Nausea with vomiting, unspecified Lung cancer Qualifiers: Laterality: unspecified laterality Lung location: unspecified part of lung Qualified Code(s): C34.90 - Malignant neoplasm of unspecified part of unspecified bronchus or lung Disposition: Admitted As Inpatient Condition: Fair Time of Disposition: 21:41 General Adult HPI - General Chief complaint: ED Nausea/Vomiting/Diarrhea Stated complaint: Dehydration,Holes in skin,cancer center sent Time Seen by Provider: 03/09/19 16:32 Source: patient Mode of arrival: wheelchair Limitations: no limitations Nursing Notes Reviewed: Yes Vital Signs Reviewed: Yes - History of Present Illness HPI Narrative: Patient is a 69-year-old male with the past medical history of squamous cell carcinoma of the lung, COPD, atrial fibrillation, PTSD who presents with nausea, vomiting, rash, dehydration. Patient says that because of pain he has been vomiting 4-5 times a day and has been feeling continually nauseous for the past month. Today he was at the cancer center and was told to come to the emergency department given his symptoms and a rash on his chest and back. The patient noticed the rash about a month ago, it was forming blisters and painful to touch. He also endorses some shortness of breath. He is typically on morphine and oxycodone at home but has not been helping. He says that sometimes he has 1-2 bowel movements a day and has noticed them being a little more runny inconsistency. He does not endorse any fevers or chills. Pain Scale: 10 - Related Data Home Medications Medication Instructions Recorded Confirmed Alendronate Sodium 70 mg PO MO 11/19/18 03/09/19 Calcium Carbonate 650 mg PO BID 11/19/18 02/23/19 Cholecalciferol (D-3) [Vitamin D] 2,000 units PO DAILY 11/19/18 02/23/19 Albuterol Neb [Proventil Neb] 2.5 mg IH Q6H PRN 12/23/18 03/09/19 Albuterol Sulfate [Proventil 2 puff PO Q4H PRN 12/23/18 03/09/19 Inhaler] Budesonide/Formoterol 160/4.5 2 puff IH BIDR 12/23/18 03/09/19 [Symbicort 160/4.5] Tiotropium [place] [Spiriva 4 gm IH DAILY 12/23/18 03/09/19 Respimat] Aspirin [Lo-Dose Aspirin EC] 81 mg PO DAILY 02/23/19 03/09/19 Ipratropium/Albuterol Neb [Duoneb] 3 ml IH AD PRN 02/23/19 03/09/19 Lisinopril [Zestril] 0.5 tab PO DAILY 02/23/19 03/09/19 Pantoprazole Sodium [Protonix] 40 mg PO DAILY 02/23/19 03/09/19 Tamsulosin HCl [Flomax] 0.4 mg PO HS 02/23/19 02/23/19 Previous Rx's Medication Instructions Recorded Magic Mouthwash [Magic Mouthwash 10 ml PO QID PRN #240 ml 11/25/18 BLM] Ondansetron HCl 8 mg PO Q8H PRN #48 tablet 11/25/18 Prochlorperazine Maleate 10 mg PO Q6HR PRN #90 tablet 11/25/18 [Compazine] Polyethylene Glycol 3350 [MiraLAX 1 scoop PO DAILY #510 gm 01/12/19 Powder Bulk 17.9 Oz] Sucralfate [Carafate] 1 gm PO QIDAC PRN #120 tablet 01/12/19 Fluconazole [Diflucan] 100 mg PO DAILY #5 tablet 02/23/19 Morphine Sulfate ER (12 HR) [MS 1 tab PO Q12HR 30 Days #60 tab 02/23/19 Contin] OxyCODONE Immed Rel [Roxicodone 5 5 - 15 mg PO Q6HR PRN 30 Days #240 02/23/19 MG] tablet Allergies Allergy/AdvReac Type Severity Reaction Status Date / Time codeine Allergy Anaphylaxis Verified 02/23/19 15:25 fentanyl AdvReac Hallucinati Verified 02/23/19 15:25 ng All systems ED: reviewed and negative except as stated. Review of Systems: As Per HPI Constitutional: Denies: fever, chills, weakness Eyes: Denies: eye pain, eye discharge, vision change ENT ED: Denies: ear pain, throat pain, dental pain Cardiovascular: Reports: chest pain. Denies: palpitations, dyspnea on exertion Respiratory: Reports: dyspnea, wheezes. Denies: cough Gastrointestinal: Reports: nausea, vomiting, diarrhea. Denies: abdominal pain, constipation Genitourinary: Denies: urgency, dysuria, frequency, hematuria Musculoskeletal: Denies: back pain, neck pain, joint swelling Integumentary: Reports: rash, lesions. Denies: abrasion Neurological: Denies: headache, numbness, paresthesias Psychiatric: Denies: anxiety, depression Endocrine: Denies: fatigue, polyuria Past Medical History - Past Medical History Attestation: Yes The following information was validated with the patient. Source: patient Medical history: Reports: cancer, COPD, hypertension Psychiatric history: Reports: no psych history - Social History Smoking Status: Current some day smoker Smokeless Tobacco Status: No Alcohol use: Reports: occasionally Drug use: Reports: none Physical Exam - General Limitations: no limitations General appearance: alert, in no apparent distress, cachectic - Head Head exam: atraumatic, normocephalic, normal inspection - Eye Eye exam: Present: normal appearance, PERRL, EOMI - ENT ENT exam: normal exam, normal oropharynx, mucous membranes moist - Neck Neck exam: Present: normal inspection, full ROM, trachea midline - Chest Chest inspection: Present: normal inspection, symmetric chest wall rise, rash (Erythematous rash in various stages of healing, tender to palpation) - Respiratory Respiratory exam: Present: wheezes (Wheezing and crackles noted in all lung [place]). Absent: normal lung sounds bilaterally, respiratory distress - Cardiovascular Cardiovascular exam: Present: regular rate, normal rhythm. Absent: bradycardia, tachycardia, irregular rhythm - Abdominal Exam Abdominal exam: Present: soft, Non-Tender. Absent: tenderness, distention, guarding, rebound, rigidity - Extremities Exam Extremities exam: Present: normal inspection, full ROM. Absent: tenderness, pedal edema - Back Exam Back exam: Present: normal inspection, full ROM, tenderness (Tender erythematous rash noted on the right side of back) - Neurological Exam Neurological exam: Present: alert, oriented X3, CN II-XII intact - Psychiatric Psychiatric exam: Present: normal affect, normal mood - Skin Skin exam: Present: warm, dry, intact, normal color Course Course Narrative: Patient was seen and examined. Vital signs remarkable for tachycardia. Exam notable for a rash in a dermatomal distribution anterior chest and back. It is tender, erythematous, indurated area stages of healing. Labs were ordered, EKG was obtained. Chest x-ray was ordered. Patient was given acyclovir and ceftriaxone for concern of shingles and possible superinfection. He was given 1 L normal saline bolus plus Zofran, Dilaudid for pain control. Albuterol and Solu-Medrol given for shortness of breath. Vital Signs Temperature 98.2 F 03/09/19 16:21 Pulse Rate 114 03/09/19 16:21 Respiratory Rate 16 03/09/19 16:21 Blood Pressure 139/68 03/09/19 16:21 O2 Sat by Pulse Oximetry 92 03/09/19 16:21 Temperature 98.2 F 03/09/19 16:21 Pulse Rate 110 03/09/19 20:38 Respiratory Rate 20 03/09/19 20:38 Blood Pressure 134/68 03/09/19 20:38 O2 Sat by Pulse Oximetry 100 03/09/19 20:38 Oxygen Delivery Oxygen Delivery Simple Mask Medical Decision Making - [facility] Narrative Medical decision making narrative: Patient is a 69-year-old male who is presenting for nausea, vomiting, rash, shortness of breath. Differential includes zoster/ shingles, cellulitis, pneumonia, inadequate pain control, dehydration, PE. A chest x-ray was performed showing no acute cardiopulmonary process, no focal consolidation or interstitial infiltrates. Exam showed rash consistent with shingles, patient was started on acyclovir. For possible pneumonia, acute bronchitis patient was started on ceftriaxone and azithromycin. He was given 1 L normal saline for dehydration. CT PE was ordered which was negative for PE, showed redemonstration of existing mass as well as a new pulmonary nodule. Patient was communicated to the hospitalist to be admitted for intractable pain, possible pneumonia, bronchitis, dehydration, and shingles. He was accepted for admission for further management of these problems. - Medical Records Medical records reviewed: Yes I reviewed the patient's medical records. - Lab Data Lab results reviewed: Yes I reviewed the patient's lab results. Result diagrams: 03/09/19 17:05 03/09/19 17:05 Lab Results 07/17/19 07/17/19 07/17/19 Range/Units 17:05 17:05 17:05 WBC 6.4 (4.3-11.1) K/mcL RBC 3.05 L (4.19-5.50) M/mcL Hgb 11.0 L (12.9-16.9) g/dL Hct 32.8 L (37.5-50.1) % MCV 107.5 H D (83.0-100.0) fL MCH 36.1 H (28.0-33.3) pg MCHC 33.5 (31.6-35.5) g/dL RDW 21.7 H (11.5-14.5) % Plt Count 199 (140-400) K/mcL MPV 9.8 (9.4-12.4) fL Immature Gran % 0.9 (0-4) % Seg Neutrophils % 79.0 % Lymphocytes % 3.8 % Monocytes % 16.0 % Eosinophils % 0.3 % Basophils % 0.0 % Neutrophils # 5.0 (1.6-8.9) K/mcL Lymphocytes # 0.2 L (0.6-4.6) K/mcL Monocytes # 1.0 (0.0-1.3) K/mcL Eosinophils # 0.0 (0.0-0.6) K/mcL Basophils # 0.0 (0.0-0.2) K/mcL Nucleated RBCs/100 WBC 0.5 H (0) /100 WBC VBG pH (7.32-7.42) pH Units VBG pCO2 (41-51) mmHg VBG pO2 (25-50) mmHg VBG HCO3 (21-27) mEq/L Sodium 133 L (136-145) mEq/L Potassium 3.3 L (3.5-5.1) mEq/L Chloride 89 L (98-107) mEq/L Carbon Dioxide 26 (23-29) mEq/L BUN 6 L (8-23) mg/dL Creatinine 0.45 L (0.70-1.30) mg/dL Est GFR ( Amer) > 60 (> 60) Est GFR (Non-Af Amer) > 60 (> 60) BUN/Creatinine Ratio 13 (6-26) Glucose 68 L (70-105) mg/dL Calculated Osmolality 272 L (280-300) Lactic Acid 1.8 (0.5-2.2) mmol/L Calcium 8.9 (8.6-10.3) mg/dL Total Bilirubin 0.5 (0.3-1.0) mg/dL Direct Bilirubin 0.2 (0.0-0.2) mg/dL Indirect Bilirubin 0.3 (0.0-1.2) mg/dL AST 17 (13-39) Units/L ALT 7 (7-52) Units/L Alkaline Phosphatase 99 (34-104) Units/L Troponin I (< 0.04) ng/mL Serum Total Protein 6.4 (6.4-8.9) g/dL Albumin 3.6 (3.5-5.7) g/dL Globulin 2.8 (2.4-3.5) g/dL Albumin/Globulin Ratio 1.3 (1.1-2.2) Lipase 6 L (11-82) Units/L 03/09/19 03/09/19 Range/Units 17:05 17:23 WBC (4.3-11.1) K/mcL RBC (4.19-5.50) M/mcL Hgb (12.9-16.9) g/dL Hct (37.5-50.1) % MCV (83.0-100.0) fL MCH (28.0-33.3) pg MCHC (31.6-35.5) g/dL RDW (11.5-14.5) % Plt Count (140-400) K/mcL MPV (9.4-12.4) fL Immature Gran % (0-4) % Seg Neutrophils % % Lymphocytes % % Monocytes % % Eosinophils % % Basophils % % Neutrophils # (1.6-8.9) K/mcL Lymphocytes # (0.6-4.6) K/mcL Monocytes # (0.0-1.3) K/mcL Eosinophils # (0.0-0.6) K/mcL Basophils # (0.0-0.2) K/mcL Nucleated RBCs/100 WBC (0) /100 WBC VBG pH 7.32 (7.32-7.42) pH Units VBG pCO2 51 (41-51) mmHg VBG pO2 71 H (25-50) mmHg VBG HCO3 26 (21-27) mEq/L Sodium (136-145) mEq/L Potassium (3.5-5.1) mEq/L Chloride (98-107) mEq/L Carbon Dioxide (23-29) mEq/L BUN (8-23) mg/dL Creatinine (0.70-1.30) mg/dL Est GFR ( Amer) (> 60) Est GFR (Non-Af Amer) (> 60) BUN/Creatinine Ratio (6-26) Glucose (70-105) mg/dL Calculated Osmolality (280-300) Lactic Acid (0.5-2.2) mmol/L Calcium (8.6-10.3) mg/dL Total Bilirubin (0.3-1.0) mg/dL Direct Bilirubin (0.0-0.2) mg/dL Indirect Bilirubin (0.0-1.2) mg/dL AST (13-39) Units/L ALT (7-52) Units/L Alkaline Phosphatase (34-104) Units/L Troponin I < 0.03 (< 0.04) ng/mL Serum Total Protein (6.4-8.9) g/dL Albumin (3.5-5.7) g/dL Globulin (2.4-3.5) g/dL Albumin/Globulin Ratio (1.1-2.2) Lipase (11-82) Units/L - Radiology Data Radiology results reviewed: Yes I reviewed the patient's radiology results. - EKG Data EKG #1 EKG attestation: Yes I reviewed and interpreted this EKG. EKG results narrative: EKG was obtained 5:21 PM. My interpretation of the EKG shows tachycardia, first degree AV block consistent with prior EKG, no axis deviation, no hypertrophy, no ST elevations or depressions, no T-wave inversions. No evidence of WPW, [place], HOCM. Compared to prior EKG from 12/23/2018. Attestation Statement - Attestation Attestation: I have seen this patient with the resident physician, I have personally evaluated this patient. I had reviewed the chart and document dictation by the resident physician and aM in agreement with the information documented by the resident physician. Please see documentation by the resident physician for complete chart including past medical history, family medical history, review of systems, current history and physical and laboratory and imaging studies. I was present for all procedures, provided direct supervision for all procedures, was present for the entirety of all procedures and provided direct guidance during the procedures. Please see documentation by the resident physician for any procedures performed. I have reviewed all interpretations of EKGs, and reviewed all EKGs performed on patient's as well. I have also reviewed reports of imaging as provided by radiology.
[2019-03-09] MEDS ORDERED: 0.9 % Sodium Chloride 1,000 ML IVC ONE (16:52)
[2019-03-09] MEDS ORDERED: Ipratropium/Albuterol Neb 3 ML IH ONE (16:52)
[2019-03-09] MEDS ORDERED: methylPREDNISolone 125 MG/2 ML VIAL IVP ONE (16:52)
[2019-03-09] MEDS ORDERED: Ondansetron 4 MG/2 ML VIAL IVP ONE (16:52)
[2019-03-09] MEDS ORDERED: Acyclovir 500 MG in D5% in Water 250 ML IVPB ONE (17:01)
[2019-03-09] MEDS ORDERED: *HR* HYDROmorphone (PF) 1 MG/ML SYRINGE IVP ONE (17:06)
[2019-03-09] MEDS ORDERED: cefTRIAXone 1,000 MG in Water for inj. (sterile) 10 ML IVP ONE (17:07)
[2019-03-09 17:25] LABS: VBG HCO3 26 mEq/L (21-27); VBG PCO2 51 mmHg (41-51); VBG PH 7.32 pH Units (7.32-7.42); VBG PO2 71 mmHg (25-50)
[2019-03-09 17:37] LABS: Eosinophils % 0.3 %; Hematocrit 32.8 % (37.5-50.1); Immature Granulocytes % 0.9 % (0-4); Lymphocytes # 0.2 K/mcL (0.6-4.6); Lymphocytes % 3.8 %; Mean Corpuscular HGB Conc 33.5 g/dL (31.6-35.5); Mean Corpuscular Hemoglobin 36.1 pg (28.0-33.3); Mean Corpuscular Volume 107.5 fL (83.0-100.0); Mean Platelet Volume 9.8 fL (9.4-12.4); Nucleated Red Blood Cells 0.5 /100 WBC (0); Platelet Count 199 K/mcL (140-400); Red Blood Count 3.05 M/mcL (4.19-5.50); Red Cell Distribution Width 21.7 % (11.5-14.5); White Blood Count 6.4 K/mcL (4.3-11.1)
[2019-03-09 17:57] LABS: Alanine Aminotransferase 7 Units/L (7-52); Albumin 3.6 g/dL (3.5-5.7); Albumin/Globulin Ratio 1.3 (1.1-2.2); Alkaline Phosphatase 99 Units/L (34-104); Aspartate Amino Transferase 17 Units/L (13-39); BUN/Creatinine Ratio 13 (6-26); Bilirubin,Direct 0.2 mg/dL (0.0-0.2); Bilirubin,Indirect 0.3 mg/dL (0.0-1.2); Bilirubin,Total 0.5 mg/dL (0.3-1.0); Blood Urea Nitrogen 6 mg/dL (8-23); Calcium 8.9 mg/dL (8.6-10.3); Carbon Dioxide 26 mEq/L (23-29); Chloride 89 mEq/L (98-107); Globulin 2.8 g/dL (2.4-3.5); Glucose 68 mg/dL (70-105); Lipase 6 Units/L (11-82); Osmolality,Calculated 272 (280-300); Potassium 3.3 mEq/L (3.5-5.1); Sodium 133 mEq/L (136-145); Total Protein 6.4 g/dL (6.4-8.9); eGFR For African Americans > 60 (> 60); eGFR For Non-African Americans > 60 (> 60)
[2019-03-09] MEDS ORDERED: Isovue-370 500 ML BOTTLE IVP ONE (18:11)
[2019-03-09] MEDS ORDERED: Azithromycin 500 MG in D5% in Water 250 ML IVPB ONE (19:42)
--- NOTE | 2019-03-09 19:48 | Emergency Department Note ---
Disposition Clinical Impression: Shingles, Intractable pain, Bronchitis, Dehydration, Nausea & vomiting, Lung cancer Disposition: Admitted As Inpatient Condition: Fair [facility]: [facility]Primary Care Provider[facility] - Forms: ED Satisfaction Letter Time of Disposition: 19:49 General Adult HPI - General Chief complaint: ED Nausea/Vomiting/Diarrhea Stated complaint: Dehydration,Holes in skin,cancer center sent Time Seen by Provider: 03/09/19 16:32 Source: patient Mode of arrival: wheelchair Limitations: no limitations Nursing Notes Reviewed: Yes Vital Signs Reviewed: Yes - History of Present Illness Pain Scale: 6 - Related Data Home Medications Medication Instructions Recorded Confirmed Alendronate Sodium 70 mg PO MO 11/19/18 02/23/19 Calcium Carbonate 650 mg PO BID 11/19/18 02/23/19 Cholecalciferol (D-3) [Vitamin D] 2,000 units PO DAILY 11/19/18 02/23/19 Albuterol Neb [Proventil Neb] 2.5 mg IH Q6H PRN 12/23/18 02/23/19 Albuterol Sulfate [Proventil 2 puff PO Q4H PRN 12/23/18 02/23/19 Inhaler] Budesonide/Formoterol 160/4.5 2 puff IH BIDR 12/23/18 02/23/19 [Symbicort 160/4.5] Tiotropium [place] [Spiriva 4 gm IH DAILY 12/23/18 02/23/19 Respimat] Aspirin [Lo-Dose Aspirin EC] 81 mg PO DAILY 02/23/19 02/23/19 Ipratropium/Albuterol Neb [Duoneb] 3 ml IH AD PRN 02/23/19 02/23/19 Lisinopril [Zestril] 0.5 tab PO DAILY 02/23/19 02/23/19 Pantoprazole Sodium [Protonix] 40 mg PO DAILY 02/23/19 02/23/19 Tamsulosin HCl [Flomax] 0.4 mg PO HS 02/23/19 02/23/19 Previous Rx's Medication Instructions Recorded Magic Mouthwash [Magic Mouthwash 10 ml PO QID PRN #240 ml 11/25/18 BLM] Ondansetron HCl 8 mg PO Q8H PRN #48 tablet 11/25/18 Prochlorperazine Maleate 10 mg PO Q6HR PRN #90 tablet 11/25/18 [Compazine] Polyethylene Glycol 3350 [MiraLAX 1 scoop PO DAILY #510 gm 01/12/19 Powder Bulk 17.9 Oz] Sucralfate [Carafate] 1 gm PO QIDAC PRN #120 tablet 01/12/19 Fluconazole [Diflucan] 100 mg PO DAILY #5 tablet 02/23/19 Morphine Sulfate ER (12 HR) [MS 1 tab PO Q12HR 30 Days #60 tab 02/23/19 Contin] OxyCODONE Immed Rel [Roxicodone 5 5 - 15 mg PO Q6HR PRN 30 Days #240 02/23/19 MG] tablet Allergies Allergy/AdvReac Type Severity Reaction Status Date / Time codeine Allergy Anaphylaxis Verified 02/23/19 15:25 fentanyl AdvReac Hallucinati Verified 02/23/19 15:25 ng Constitutional: Denies: fever, chills, weakness Eyes: Denies: eye pain, eye discharge, vision change ENT ED: Denies: ear pain, throat pain, dental pain Cardiovascular: Reports: chest pain. Denies: palpitations, dyspnea on exertion Respiratory: Reports: dyspnea, wheezes. Denies: cough Gastrointestinal: Reports: nausea, vomiting, diarrhea. Denies: abdominal pain, constipation Genitourinary: Denies: urgency, dysuria, frequency, hematuria Musculoskeletal: Denies: back pain, neck pain, joint swelling Integumentary: Reports: rash, lesions. Denies: abrasion Neurological: Denies: headache, numbness, paresthesias Psychiatric: Denies: anxiety, depression Endocrine: Denies: fatigue, polyuria Past Medical History - Past Medical History Medical history: Reports: cancer, COPD, hypertension Psychiatric history: Reports: no psych history - Social History Smoking Status: Current some day smoker Smokeless Tobacco Status: No Alcohol use: Reports: occasionally Drug use: Reports: none Physical Exam - General Limitations: no limitations General appearance: alert, in no apparent distress, cachectic Course Vital Signs Temperature 98.2 F 03/09/19 16:21 Pulse Rate 114 03/09/19 16:21 Respiratory Rate 16 03/09/19 16:21 Blood Pressure 139/68 03/09/19 16:21 O2 Sat by Pulse Oximetry 92 03/09/19 16:21 Temperature 98.2 F 03/09/19 16:21 Pulse Rate 121 03/09/19 19:08 Respiratory Rate 16 03/09/19 19:08 Blood Pressure 137/74 03/09/19 19:08 O2 Sat by Pulse Oximetry 97 03/09/19 19:08 Oxygen Delivery Oxygen Delivery Simple Mask Medical Decision Making - Lab Data Result diagrams: 03/09/19 17:05 03/09/19 17:05 Lab Results 03/09/19 03/09/19 03/09/19 Range/Units 17:05 17:05 17:05 WBC 6.4 (4.3-11.1) K/mcL RBC 3.05 L (4.19-5.50) M/mcL Hgb 11.0 L (12.9-16.9) g/dL Hct 32.8 L (37.5-50.1) % MCV 107.5 H D (83.0-100.0) fL MCH 36.1 H (28.0-33.3) pg MCHC 33.5 (31.6-35.5) g/dL RDW 21.7 H (11.5-14.5) % Plt Count 199 (140-400) K/mcL MPV 9.8 (9.4-12.4) fL Immature Gran % 0.9 (0-4) % Seg Neutrophils % 79.0 % Lymphocytes % 3.8 % Monocytes % 16.0 % Eosinophils % 0.3 % Basophils % 0.0 % Neutrophils # 5.0 (1.6-8.9) K/mcL Lymphocytes # 0.2 L (0.6-4.6) K/mcL Monocytes # 1.0 (0.0-1.3) K/mcL Eosinophils # 0.0 (0.0-0.6) K/mcL Basophils # 0.0 (0.0-0.2) K/mcL Nucleated RBCs/100 WBC 0.5 H (0) /100 WBC VBG pH (7.32-7.42) pH Units VBG pCO2 (41-51) mmHg VBG pO2 (25-50) mmHg VBG HCO3 (21-27) mEq/L Sodium 133 L (136-145) mEq/L Potassium 3.3 L (3.5-5.1) mEq/L Chloride 89 L (98-107) mEq/L Carbon Dioxide 26 (23-29) mEq/L BUN 6 L (8-23) mg/dL Creatinine 0.45 L (0.70-1.30) mg/dL Est GFR ( Amer) > 60 (> 60) Est GFR (Non-Af Amer) > 60 (> 60) BUN/Creatinine Ratio 13 (6-26) Glucose 68 L (70-105) mg/dL Calculated Osmolality 272 L (280-300) Lactic Acid 1.8 (0.5-2.2) mmol/L Calcium 8.9 (8.6-10.3) mg/dL Total Bilirubin 0.5 (0.3-1.0) mg/dL Direct Bilirubin 0.2 (0.0-0.2) mg/dL Indirect Bilirubin 0.3 (0.0-1.2) mg/dL AST 17 (13-39) Units/L ALT 7 (7-52) Units/L Alkaline Phosphatase 99 (34-104) Units/L Troponin I (< 0.04) ng/mL Serum Total Protein 6.4 (6.4-8.9) g/dL Albumin 3.6 (3.5-5.7) g/dL Globulin 2.8 (2.4-3.5) g/dL Albumin/Globulin Ratio 1.3 (1.1-2.2) Lipase 6 L (11-82) Units/L 03/09/19 03/09/19 Range/Units 17:05 17:23 WBC (4.3-11.1) K/mcL RBC (4.19-5.50) M/mcL Hgb (12.9-16.9) g/dL Hct (37.5-50.1) % MCV (83.0-100.0) fL MCH (28.0-33.3) pg MCHC (31.6-35.5) g/dL RDW (11.5-14.5) % Plt Count (140-400) K/mcL MPV (9.4-12.4) fL Immature Gran % (0-4) % Seg Neutrophils % % Lymphocytes % % Monocytes % % Eosinophils % % Basophils % % Neutrophils # (1.6-8.9) K/mcL Lymphocytes # (0.6-4.6) K/mcL Monocytes # (0.0-1.3) K/mcL Eosinophils # (0.0-0.6) K/mcL Basophils # (0.0-0.2) K/mcL Nucleated RBCs/100 WBC (0) /100 WBC VBG pH 7.32 (7.32-7.42) pH Units VBG pCO2 51 (41-51) mmHg VBG pO2 71 H (25-50) mmHg VBG HCO3 26 (21-27) mEq/L Sodium (136-145) mEq/L Potassium (3.5-5.1) mEq/L Chloride (98-107) mEq/L Carbon Dioxide (23-29) mEq/L BUN (8-23) mg/dL Creatinine (0.70-1.30) mg/dL Est GFR ( Amer) (> 60) Est GFR (Non-Af Amer) (> 60) BUN/Creatinine Ratio (6-26) Glucose (70-105) mg/dL Calculated Osmolality (280-300) Lactic Acid (0.5-2.2) mmol/L Calcium (8.6-10.3) mg/dL Total Bilirubin (0.3-1.0) mg/dL Direct Bilirubin (0.0-0.2) mg/dL Indirect Bilirubin (0.0-1.2) mg/dL AST (13-39) Units/L ALT (7-52) Units/L Alkaline Phosphatase (34-104) Units/L Troponin I < 0.03 (< 0.04) ng/mL Serum Total Protein (6.4-8.9) g/dL Albumin (3.5-5.7) g/dL Globulin (2.4-3.5) g/dL Albumin/Globulin Ratio (1.1-2.2) Lipase (11-82) Units/L Attestation Statement - Attestation Attestation: I have seen this patient with the resident physician, I have personally evaluat ed this patient. I had reviewed the chart and document dictation by the resident physician and aM in agreement with the information documented by the resident physician. Please see documentation by the resident physician for complete chart including past medical history, family medical history, review of systems, current history and physical and laboratory and imaging studies. I was present for all procedures, provided direct supervision for all procedures, was present for the entirety of all procedures and provided direct guidance during the procedures. Please see documentation by the resident physician for any procedures performed. I have reviewed all interpretations of EKGs, and reviewed all EKGs performed on patient's as well. I have also reviewed reports of imaging as provided by radiology. Patient was sent in from the cancer center for severe right-sided chest pain, nausea vomiting and just feeling poorly. Patient has history of cancer, he is currently off therapy, he finished in January. He has not been able to eat or drink which she attributes secondary to severe right-sided chest pain. The patient states that he has had a rash on the right side of his chest for a month but did not ever show it to his oncologist, states they showed him today and they sent him here for further evaluation. Upon arrival he is dehydrated in appearance with dry appearing mucous membranes and is slightly tachycardic. Lungs reveal few scattered coarse breath sounds, no focal rales rhonchi or crackle. The right anterior chest wall has definitive evidence for zoster, ulcerative lesions, following a dermatomal pattern, there is some erythema in between this with crusting of the skin, no current blistering noted, cannot completely rule out superinfection although there is no foul odor, there is no drainage. This is only on the right sided chest starts in the midline and wraps around his right side. Abdomen is soft and nontender. Skin is otherwise without any generalized rash or petechiae. Basic laboratory studies were within acceptable limits. Secondary to his presenting with tachycardia, chest pain, which is sharp and pleuritic as well as completely reproducible by palpation of his chest, with his history of lung cancer a CT PE protocol was ordered that showed no pulmonary embolism, some possible interstitial abnormality, cannot rule out a small area of pneumonia, no new masses. Smaller cavitary lesions from previous. Patient had an IV placed, he was given breathing treatments he was given steroids he was given fluids he was given IV nausea medication. Secondary to his evidence of zoster, he was given IV acyclovir, he was also given antibiotics for possible pneumonia and bronchitis, blood cultures were sent prior to this. He was given IV hydromorphone for his chest pain, as he has already been on multiple oral narcotics at home without success of his pain control. He does have some symptomatic improvement with all of this and will be admitted to the hospital for further evaluation and management, as well as management of clinical evidence of dehydration, possible bronchitis versus pneumonia, intractable pain related to shingles of the chest with a history of cancer. Potassium was slightly low at 3.3 this was also supplemented in the emergency department with potassium.
[2019-03-09] MEDS ORDERED: *HR* OxyCODONE Immed Rel 5 MG TABLET PO PRN (22:46)
--- NOTE | 2019-03-09 23:14 | Internal Med History&Physical ---
Date of Encounter: 03/09/19 Time of Encounter: 23:14 Internal Medicine - H&P: HPI Chief complaint: chest pain Admitted From: Home Plans for Post Hospital Care: Home History of present illness: Abner Arevalo is a 69 year old man with squamous cell carcinoma of the left upper lobe was undergone endobronchial stent placement and chemoradiotherapy but has since developed esophagitis resultant difficulty s wallowing. He has also been placed on high-dose opiates for pain control however he comes today to the ER and planning of increasing chest pain as well as a rash on his right chest wall that started 3 weeks ago. He said and initially formed blisters which have since subsided but has remained very painful and tender to touch. He had a CT scan done which showed interval decrease in the size of his left hilar mass and the LLL cavitary lesion but has a new 3mm lung nodule, bronchial wall thickening and some mucus plugging. He was given pain medications, potassium supplementation and IV acyclovir for shingles. He is admitted for further care. Vitals: Reviewed General: Emaciated man who appears older than stated age Skin: Warm and dry. T6 dermatome with an erythematous area that is tender to touch with areas of crusting and some dried up blisters that does not cross the midline. HEENT: Dry mucous membranes. (+) conjunctivae pallor. Neck: No carotid bruits. No palpable thyroid. Chest: Diminished thoracic expansion with reduced breath sounds. Heart: Normal S1 & S2; rhythmic. No rubs or murmurs. Abdomen: Non-distended, soft and non-tender to palpation. No peritoneal reaction. Extremities: (+) fingernail clubbing. No peripheral edema. Neurological: Awake, alert and oriented to person, place and time. No focal deficits. Psych: Affect appropriate. Assessment/Plan 1. Varicella zoster: The patients clinical appearance is suggestive of sh ingles however it started 3 weeks ago and is now crusting over and therefore does not require airborne precautions. However he is immunocompromised and given the persistene, he may benefit from antiviral therapy. Will discontinue IV acyclovir started in the ER given the risk of nephrotoxicity and start oral valacyclovir 1gr TID to complete a 7 day course. 2. Chest pain: No evidence of pulmonary embolism or ACS and is likely secondary to his underlying malignant lung disease. He was Rx oxycodone 15mg q6hrs prn and ER morphine 15mg q12hrs by his oncologist. Will continue. 3. Squamous cell carcinoma: Prognosis is guarded. Wishes to remain full code for now. Complicated by esophagitis from radiation therapy; will place on soft diet. 4. COPD: Start albuterol/ipratroipum prn. 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 feet reconstruction surgery - Social History Smoking Status: Current every day smoker Smokeless Tobacco Status: No Alcohol use: occasionally Drug use: none - Family History Mother Hx Family Cancer: Yes (colon) Internal Medicine - H&P: Meds Alendronate Sodium 70 mg PO MO 11/19/18 [History] Calcium Carbonate 650 mg PO BID 11/19/18 [History] Cholecalciferol (D-3) [Vitamin D] 2,000 units PO DAILY 11/19/18 [History] Magic Mouthwash [Magic Mouthwash BLM] 10 ml PO QID PRN #240 ml 11/25/18 [Rx] Ondansetron HCl 8 mg PO Q8H PRN #48 tablet 11/25/18 [Rx] Prochlorperazine Maleate [Compazine] 10 mg PO Q6HR PRN #90 tablet 11/25/18 [Rx] Albuterol Neb [Proventil Neb] 2.5 mg IH Q6H PRN 12/23/18 [History] Albuterol Sulfate [Proventil Inhaler] 2 puff PO Q4H PRN 12/23/18 [History] Budesonide/Formoterol 160/4.5 [Symbicort 160/4.5] 2 puff IH BIDR 12/23/18 [History] Tiotropium [place] [Spiriva Respimat] 4 gm IH DAILY 12/23/18 [History] Polyethylene Glycol 3350 [MiraLAX Powder Bulk 17.9 Oz] 1 scoop PO DAILY #510 gm 01/12/19 [Rx] Sucralfate [Carafate] 1 gm PO QIDAC PRN #120 tablet 01/12/19 [Rx] Aspirin [Lo-Dose Aspirin EC] 81 mg PO DAILY 02/23/19 [History] Fluconazole [Diflucan] 100 mg PO DAILY #5 tablet 02/23/19 [Rx] Ipratropium/Albuterol Neb [Duoneb] 3 ml IH AD PRN 02/23/19 [History] Lisinopril [Zestril] 0.5 tab PO DAILY 02/23/19 [History] Morphine Sulfate ER (12 HR) [MS Contin] 1 tab PO Q12HR 30 Days #60 tab 02/23/19 [Rx] OxyCODONE Immed Rel [Roxicodone 5 MG] 5 - 15 mg PO Q6HR PRN 30 Days #240 tablet 02/23/19 [Rx] Pantoprazole Sodium [Protonix] 40 mg PO DAILY 02/23/19 [History] Tamsulosin HCl [Flomax] 0.4 mg PO HS 02/23/19 [History] Allergy/AdvReac Type Severity Reaction Status Date / Time codeine Allergy Anaphylaxis Verified 02/23/19 15:25 fentanyl AdvReac Hallucinati Verified 02/23/19 15:25 ng All Systems PM: A 10-system review of systems was performed and is negative for pertinent findings except as documented above in the HPI. - Constitutional Vitals: Temp Pulse Resp BP Pulse Ox 98.3 F 108 15 151/78 99 03/09/19 22:12 03/09/19 22:12 03/09/19 22:12 03/09/19 22:12 03/09/19 22:12 Exam: . Internal Med - H&P Results - Labs CBC & Chem 7: 03/09/19 17:05 03/09/19 17:05 Labs: Short CBC 03/09/19 Range/Units 17:05 WBC 6.4 (4.3-11.1) K/mcL Hgb 11.0 L (12.9-16.9) g/dL Hct 32.8 L (37.5-50.1) % Plt Count 199 (140-400) K/mcL Neutrophils # 5.0 (1.6-8.9) K/mcL BMP 03/09/19 17:05 Sodium 133 L Potassium 3.3 L Chloride 89 L Carbon Dioxide 26 BUN 6 L Creatinine 0.45 L Glucose 68 L Calcium 8.9 Cardiac Enzymes 03/09/19 Range/Units 17:05 Troponin I < 0.03 (< 0.04) ng/mL Liver Function 03/09/19 Range/Units 17:05 Total Bilirubin 0.5 (0.3-1.0) mg/dL Direct Bilirubin 0.2 (0.0-0.2) mg/dL AST 17 (13-39) Units/L ALT 7 (7-52) Units/L Alkaline Phosphatase 99 (34-104) Units/L Albumin 3.6 (3.5-5.7) g/dL - ABG Interpretation ABG results: 03/09/19 17:23 VBG pH 7.32 VBG pCO2 51 VBG pO2 71 H VBG HCO3 26 - Impressions ITS Impressions Chest X-Ray 03/09/19 16:49 IMPRESSION: No acute cardiopulmonary process Left mainstem bronchus stent. Prominence of left hilum corresponding to known lung cancer. D/ / Vargas Ribera / Vargas Ribera Interpreting Provider: Vargas Ribera Chest CTA 03/09/19 18:11 IMPRESSION: No evidence of pulmonary embolism. Interval decrease in size of the left hilar mass measuring 3.4 x 2.2 cm, compared to 4.3 x 3.7 cm on December 23, 2018, likely related to treatment response. New 3 mm lung nodule in the right lower lobe, may be related to infection/inflammation versus metastatic disease. Follow-up is recommended. 6.5 mm cavitary lesion in the left lower lobe decreased in size since December 23, 2018 when it measured up to 8.8 mm, likely related to treatment response. Adjacent cavitary lesion measuring 6.6 mm in the left lower lobe is stable since December 23, 2018. Bronchial wall thickening, likely related to small airway disease or bronchiolitis. Mucous plugging. Age indeterminate compression fracture at the superior endplate of T7 with 30% height loss, new since December 23, 2018. The results were sent to radiology results communication. D/ / Clifford Bejarano MD / Clifford Bejarano MD Interpreting Provider: Clifford Bejarano MD - Time Spent With Patient Total time spent is greater than 50% in coordination of care (as documented) at patient's floor/unit and/or counseling patient: Greater than 35 minutes
[2019-03-10] MEDS ORDERED: Sucralfate 1 GM TABLET PO PRN (00:54)
[2019-03-10] MEDS ORDERED: Magic Mouthwash 10 ML UD Cup PO PRN (00:57)
[2019-03-10] MEDS ORDERED: Ondansetron ODT 4 MG TAB.RAPDIS PO PRN (00:58)
[2019-03-10] MEDS ORDERED: Ketorolac 30 MG/ML VIAL IVP ONE (01:00)
[2019-03-10] MEDS ORDERED: Potassium Chloride 40 MEQ in D5% in 0.9% NACL 1,000 ML IVC SCH (01:00)
[2019-03-10] MEDS: *HR* OxyCODONE Immed Rel 5 MG TABLET PO PRN ×3 (01:02→18:12)
[2019-03-10] MEDS: Albuterol 2.5 MG/3 ML NEBULIZER IH PRN ×3 (01:17→21:47)
[2019-03-10 01:45] LABS: Hematocrit 31.9 % (37.5-50.1); Hemoglobin 10.3 g/dL (12.9-16.9); Immature Granulocytes % 0.7 % (0-4); Lymphocytes # 0.1 K/mcL (0.6-4.6); Lymphocytes % 2.4 %; Mean Corpuscular HGB Conc 32.3 g/dL (31.6-35.5); Mean Corpuscular Hemoglobin 35.5 pg (28.0-33.3); Mean Platelet Volume 9.5 fL (9.4-12.4); Monocytes # 0.1 K/mcL (0.0-1.3); Monocytes % 2.2 %; Neutrophils # 3.9 K/mcL (1.6-8.9); Nucleated Red Blood Cells 0.5 /100 WBC (0); Platelet Count 190 K/mcL (140-400); Red Cell Distribution Width 21.8 % (11.5-14.5); Segmented Neutrophils % 94.7 %; White Blood Count 4.1 K/mcL (4.3-11.1)
[2019-03-10 02:04] LABS: BUN/Creatinine Ratio 8 (6-26); Blood Urea Nitrogen 4 mg/dL (8-23); Calcium 8.1 mg/dL (8.6-10.3); Carbon Dioxide 26 mEq/L (23-29); Chloride 94 mEq/L (98-107); Glucose 152 mg/dL (70-105); Magnesium 1.5 mg/dL (1.6-2.6); Osmolality,Calculated 276 (280-300); Potassium 4.5 mEq/L (3.5-5.1); Sodium 133 mEq/L (136-145); eGFR For African Americans > 60 (> 60); eGFR For Non-African Americans > 60 (> 60)
[2019-03-10 02:44] LABS: Anisocytosis 2+ (Not Present); Hypochromasia Present (Not Present); Platelet Estimate Normal (Normal)
[2019-03-10] MEDS ORDERED: *HR* HYDROmorphone (PF) 1 MG/ML SYRINGE IVP ONE ×2 (03:19→21:41)
[2019-03-10] MEDS: *HR* Heparin 5,000 UNIT/ML VIAL SQ SCH ×2 (05:31→18:12)
[2019-03-10] MEDS: Morphine Sulfate ER (12 HR) 15 MG TABLET.ER PO SCH ×2 (05:31→18:11)
[2019-03-10] MEDS: Budesonide/Formoterol 160/4.5 1 PUFF INH IH SCH ×2 (07:32→21:46)
--- NOTE | 2019-03-10 07:44 | Internal Med Progress Note ---
<Palomo Walker - Last Filed: 03/10/19 17:30> Hospitalist Progress Note - Encounter Date of Encounter: 03/10/19 - Exam Vitals: Temp Pulse Resp BP Pulse Ox 98.4 F 107 16 147/86 96 03/10/19 14:10 03/10/19 14:10 03/10/19 14:10 03/10/19 14:10 03/10/19 14:10 - Assessment and Plan (1) Shingles Current Visit: Yes Status: Acute (2) Intractable pain Current Visit: Yes Status: Acute (3) Lung cancer Current Visit: Yes Status: Chronic (4) Hypertension Current Visit: No Status: Chronic (5) Tobacco abuse Current Visit: Yes Status: Chronic - Time Spent with Patient Total time spent is greater than 50% in coordination of care (as documented) at patient's floor/unit and/or counseling patient: Internal Medicine: Result - Labs CBC & Chem 7: 03/10/19 01:01 03/10/19 01:01 Labs: Short CBC 03/09/19 03/10/19 Range/Units 17:05 01:01 WBC 6.4 4.1 L (4.3-11.1) K/mcL Hgb 11.0 L 10.3 L (12.9-16.9) g/dL Hct 32.8 L 31.9 L (37.5-50.1) % Plt Count 199 190 (140-400) K/mcL Neutrophils # 5.0 3.9 (1.6-8.9) K/mcL BMP 03/09/19 03/10/19 17:05 01:01 Sodium 133 L 133 L Potassium 3.3 L 4.5 D Chloride 89 L 94 L Carbon Dioxide 26 26 BUN 6 L 4 L Creatinine 0.45 L 0.51 L Glucose 68 L 152 H Calcium 8.9 8.1 L Cardiac Enzymes 03/09/19 Range/Units 17:05 Troponin I < 0.03 (< 0.04) ng/mL Liver Function 03/09/19 Range/Units 17:05 Total Bilirubin 0.5 (0.3-1.0) mg/dL Direct Bilirubin 0.2 (0.0-0.2) mg/dL AST 17 (13-39) Units/L ALT 7 (7-52) Units/L Alkaline Phosphatase 99 (34-104) Units/L Albumin 3.6 (3.5-5.7) g/dL - Impressions Impressions Chest CTA 03/09/19 18:11 IMPRESSION: No evidence of pulmonary embolism. Interval decrease in size of the left hilar mass measuring 3.4 x 2.2 cm, compared to 4.3 x 3.7 cm on December 23, 2018, likely related to treatment response. New 3 mm lung nodule in the right lower lobe, may be related to infection/inflammation versus metastatic disease. Follow-up is recommended. 6.5 mm cavitary lesion in the left lower lobe decreased in size since December 23, 2018 when it measured up to 8.8 mm, likely related to treatment response. Adjacent cavitary lesion measuring 6.6 mm in the left lower lobe is stable since December 23, 2018. Bronchial wall thickening, likely related to small airway disease or bronchiolitis. Mucous plugging. Age indeterminate compression fracture at the superior endplate of T7 with 30% height loss, new since December 23, 2018. The results were sent to radiology results communication. D/ / Clifford Bejarano MD / Clifford Bejarano MD Interpreting Provider: Clifford Bejarano MD Consult Discharge Plan - Plan [facility]errals: [facility]Primary Care Provider[facility] - - Attending Attestation I examined this patient and my medical decision-making was reviewed with the Resident Physician on 03/10/19. I agree with the documented findings, disposition and treatment plan as described except to the extent set forth below. Mr Arevalo is currently hospitalized for acute herpes zoster. He remains moderate to high risk due to potential for worsening clinical status. Mr Arevalo is resting. His pain is somewhat better in AM. No fever or chills. Exam: Alert. Comfortable now. NC. Mucus membranes dry. Neck supple. SLungs clear. Abd soft. No edema. Moves all extremities. Rash L chest - covered. Plan: Pain control. Continue Valtrex. Anticipate d/c tomorrow. <Shabbir Saucedo - Last Filed: 03/10/19 20:24> Hospitalist Progress Note - Encounter Date of Encounter: 03/10/19 Time of Encounter: 09:15 - Subjective Interval History: Abner Arevalo is a 69-year-old male with past medical history of squamous cell carcinoma of the lung, COPD, A. 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 He only mentioned to me the lack of sleep and rash. Vital signs significant for pulse of 114. Labs significant for negative troponins, hyponatremia at 133, hypokalemia at 3.3. EKG read as tachycardia, first-degree AV block no change from prior EKG, no evidence of new ischemia. CXR read as no acute cardiopulmonary process with the prominence of left hilum corresponding to his known lung cancer and a left main bronchus stent. CTA chest showed no PE, decrease in known left hilar mass, new 3 mm lung nodule in right lower lobe, decreased cavitary lesion in the left lower lobe and adjacent lesion no change, bronchial wall thickening likely bronchiolitis with mucoid plugging, and compression fracture at superior endplate of T7. He was admitted with the diagnoses of varicella-zoster shingles, musculoskeletal chest pain, squamous cell carcinoma, and COPD. IV acyclovir began in the ER was switched to oral valacyclovir 1 g 3 times a day day 1 of 7. He was given oxycodone when necessary for pain and morphine. He was placed on albuterol/ipratropium when necessary. 03/10/19: Patient states that the pain is better today. He denies other pressing issues. - Exam Vitals: Temp Pulse Resp BP Pulse Ox 98.3 F 87 16 144/78 95 03/10/19 06:55 03/10/19 06:55 03/10/19 06:55 03/10/19 06:55 03/10/19 06:55 Exam: Gen.: Elderly male no acute distress. Cachectic. Skin: Good turgor. Erythematous rash in a dermatomal pattern over the right rib cage. Covering about 8 x 6". Healing blisters within. Painful to palpation around the area. Cardiac: Difficult to hear secondary to lung sounds. Tricuspid and mitral heard. Regular rate and rhythm. No murmurs heard. Respiratory: Diffuse rhonchi and wheezes. Crackles dry. Wheezing worse in upper lung [place]. GI: No distention, or jaundice. Nontender to palpation. Extremities: Perfusion of fingers intact. No lower extremity edema. Psychiatric: Appropriate mood and behavior. Answers questions coherently. - Assessment and Plan (1) Shingles Current Visit: Yes Status: Acute Assessment and Plan: 03/10/19 -Likely secondary to stress of chemotherapy/radiation -As seen on physical exam -Valacyclovir, Roxicodone, morphine. (2) Lung cancer Current Visit: Yes Status: Chronic Assessment and Plan: -Squamous cell carcinoma -On chemotherapy and radiation -CTA chest showed decrease in known left hilar mass, new 3 mm lung nodule in right lower lobe, decreased cavitary lesion in the left lower lobe and adjacent lesion no change -Following Dr. Kaur and Dr. Adkins. (3) COPD (chronic obstructive pulmonary disease) Current Visit: No Status: Chronic Assessment and Plan: -Chronic -Nebulizer therapy as needed (4) Urinary retention Current Visit: Yes Status: Acute Assessment and Plan: -Chronic -Continue Flomax DVT Prophylaxis: subq hep - Summary of Assessment and Plan Summary of Assessment and Plan: Varicella Zoster shingles 03/10/19 -Likely secondary to stress of chemotherapy/radiation -As seen on physical exam -Valacyclovir, Roxicodone, morphine. Squamous cell carcinoma -Of the lung -On chemotherapy and radiation -CTA chest showed decrease in known left hilar mass, new 3 mm lung nodule in right lower lobe, decreased cavitary lesion in the left lower lobe and adjacent lesion no change -Following Dr. Kaur and Dr. Adkins. COPD -Chronic -Nebulizer therapy as needed Urinary retention -Chronic -Continue Flomax - Time Spent with Patient Total time spent is greate Internal Medicine: Result - Labs CBC & Chem 7: 03/10/19 01:01 03/10/19 01:01 Labs: Short CBC 03/09/19 03/10/19 Range/Units 17:05 01:01 WBC 6.4 4.1 L (4.3-11.1) K/mcL Hgb 11.0 L 10.3 L (12.9-16.9) g/dL Hct 32.8 L 31.9 L (37.5-50.1) % Plt Count 199 190 (140-400) K/mcL Neutrophils # 5.0 3.9 (1.6-8.9) K/mcL BMP 03/09/19 03/10/19 17:05 01:01 Sodium 133 L 133 L Potassium 3.3 L 4.5 D Chloride 89 L 94 L Carbon Dioxide 26 26 BUN 6 L 4 L Creatinine 0.45 L 0.51 L Glucose 68 L 152 H Calcium 8.9 8.1 L Cardiac Enzymes 03/09/19 Range/Units 17:05 Troponin I < 0.03 (< 0.04) ng/mL Liver Function 03/09/19 Range/Units 17:05 Total Bilirubin 0.5 (0.3-1.0) mg/dL Direct Bilirubin 0.2 (0.0-0.2) mg/dL AST 17 (13-39) Units/L ALT 7 (7-52) Units/L Alkaline Phosphatase 99 (34-104) Units/L Albumin 3.6 (3.5-5.7) g/dL - Impressions Impressions Chest X-Ray 03/09/19 16:49 IMPRESSION: No acute cardiopulmonary process Left mainstem bronchus stent. Prominence of left hilum corresponding to known lung cancer. D/ / Vargas Ribera / Vargas Ribera Interpreting Provider: Vargas Ribera Chest CTA 03/09/19 18:11 IMPRESSION: No evidence of pulmonary embolism. Interval decrease in size of the left hilar mass measuring 3.4 x 2.2 cm, compared to 4.3 x 3.7 cm on December 23, 2018, likely related to treatment response. New 3 mm lung nodule in the right lower lobe, may be related to infection/inflammation versus metastatic disease. Follow-up is recommended. 6.5 mm cavitary lesion in the left lower lobe decreased in size since December 23, 2018 when it measured up to 8.8 mm, likely related to treatment response. Adjacent cavitary lesion measuring 6.6 mm in the left lower lobe is stable since December 23, 2018. Bronchial wall thickening, likely related to small airway disease or bronchiolitis. Mucous plugging. Age indeterminate compression fracture at the superior endplate of T7 with 30% height loss, new since December 23, 2018. The results were sent to radiology results communication. D/ / Clifford Bejarano MD / Clifford Bejarano MD Interpreting Provider: Clifford Bejarano MD <Palomo Walker A - Last Filed: 03/10/19 17:30> (1) Shingles Qualifiers: Herpes zoster complications: without complications Qualified Code(s): B02.9 - Zoster without complications (3) Lung cancer Qualifiers: Laterality: left Lung location: upper lobe of lung Qualified Code(s): C34.12 - Malignant neoplasm of upper lobe, left bronchus or lung (4) Hypertension Qualifiers: Hypertension type: essential hypertension Qualified Code(s): I10 - Essential (primary) hypertension <Shabbir Saucedo G - Last Filed: 03/10/19 20:24> (1) Shingles Qualifiers: Herpes zoster complications: without complications Qualified Code(s): B02.9 - Zoster without complications (2) Lung cancer Qualifiers: Laterality: left Lung location: upper lobe of lung Qualified Code(s): C34.12 - Malignant neoplasm of upper lobe, left bronchus or lung (3) COPD (chronic obstructive pulmonary disease) Qualifiers: Emphysema type: unspecified Qualified Code(s): J43.9 - Emphysema, unspecified
[2019-03-10] MEDS: Cholecalciferol (D-3) 1,000 UNIT (25MCG) TABLET PO SCH (07:55)
[2019-03-10] MEDS: valACYclovir 500 MG TABLET PO SCH ×3 (07:56→21:33)
[2019-03-10] MEDS: Aspirin Enteric Coated 81 MG Tablet PO SCH (07:56)
[2019-03-10] MEDS ORDERED: NON-FORMULARY MEDICATION 1 EACH EACH (Tiotropium Bromide [Spiriva Respimat] 4 GM) IH SCH (09:00)
[2019-03-10] MEDS: Tiotropium 18 MCG inhalation IH SCH (12:53)
--- NOTE | 2019-03-10 21:45 | Event Note ---
Date of Encounter: 03/10/19 Time of Encounter: 21:40 Alerted by pts. nurse that the pt. is a cancer pt. and was admitted d/t severe dehydration. Pt. is in pain and was given 1 mg one-time dose of Dilaudid last night which enabled him to sleep. Pt. reporting pain and anxiety. One-time order for Dilaudid 1 mg IVP ordered and discussed w/Agustin in Pharmacy for approval. Nurse instructed to continue monitoring the pt. very closely and alert me immediately of any adverse changes.
[2019-03-11] MEDS: *HR* OxyCODONE Immed Rel 5 MG TABLET PO PRN ×3 (02:07→17:50)
[2019-03-11 02:19] LABS: Hematocrit 27.1 % (37.5-50.1); Immature Granulocytes % 0.8 % (0-4); Lymphocytes # 0.2 K/mcL (0.6-4.6); Lymphocytes % 2.2 %; Mean Corpuscular HGB Conc 33.2 g/dL (31.6-35.5); Mean Corpuscular Hemoglobin 35.4 pg (28.0-33.3); Mean Corpuscular Volume 106.7 fL (83.0-100.0); Mean Platelet Volume 9.4 fL (9.4-12.4); Monocytes # 0.9 K/mcL (0.0-1.3); Monocytes % 12.3 %; Neutrophils # 6.4 K/mcL (1.6-8.9); Nucleated Red Blood Cells 0.3 /100 WBC (0); Platelet Count 149 K/mcL (140-400); Red Blood Count 2.54 M/mcL (4.19-5.50); Red Cell Distribution Width 20.9 % (11.5-14.5); Segmented Neutrophils % 84.7 %
[2019-03-11 02:25] LABS: White Blood Count 7.6 K/mcL (4.3-11.1)
[2019-03-11 02:40] LABS: BUN/Creatinine Ratio 11 (6-26); Blood Urea Nitrogen 5 mg/dL (8-23); Calcium 8.1 mg/dL (8.6-10.3); Carbon Dioxide 30 mEq/L (23-29); Chloride 97 mEq/L (98-107); Glucose 138 mg/dL (70-105); Osmolality,Calculated 271 (280-300); Sodium 131 mEq/L (136-145); eGFR For African Americans > 60 (> 60); eGFR For Non-African Americans > 60 (> 60)
[2019-03-11 02:43] LABS: Platelet Estimate Normal (Normal)
[2019-03-11 02:44] LABS: Anisocytosis 2+ (Not Present); Hypochromasia Present (Not Present)
[2019-03-11 02:57] LABS: Magnesium 1.8 mg/dL (1.6-2.6)
[2019-03-11] MEDS: Albuterol 2.5 MG/3 ML NEBULIZER IH PRN ×2 (03:36→08:27)
[2019-03-11] MEDS: Morphine Sulfate ER (12 HR) 15 MG TABLET.ER PO SCH ×3 (05:28→22:11)
[2019-03-11] MEDS: *HR* Heparin 5,000 UNIT/ML VIAL SQ SCH ×2 (05:28→17:50)
[2019-03-11] MEDS: Tiotropium 18 MCG inhalation IH SCH (08:18)
[2019-03-11] MEDS: Budesonide/Formoterol 160/4.5 1 PUFF INH IH SCH ×2 (08:18→22:36)
--- NOTE | 2019-03-11 08:34 | Internal Med Progress Note ---
<Shabbir Saucedo - Last Filed: 03/11/19 17:15> Hospitalist Progress Note - Encounter Date of Encounter: 03/11/19 Time of Encounter: 09:00 - Subjective Interval History: Patient says that he cannot breathe today and he is in much pain with breathing. Patient reports many additional symptoms leading up to hospitalization that he did not mention before. Increased cough, sputum production, sputum purulence, dyspnea that was not baseline for him. He has been receiving his Spiriva and Symbicort and hospital with not much help. Also mentions vomiting last episode 2 weeks ago but this vomiting lasted quite a while and his cancer doctors said that it was secondary to the treatments. He has also had ongoing dysphagia secondary to radiation that is only now resolving. Because of this. He has not been eating significantly for about a month. - Exam Vitals: Temp Pulse Resp BP Pulse Ox 98.2 F 103 18 127/71 100 03/11/19 06:39 03/11/19 06:39 03/11/19 08:20 03/11/19 06:39 03/11/19 08:20 Exam: Gen.: Elderly male. Some labored breathing. Skin: Poor turgor. Dryness of back and lower extremities Eyes: Moist conjunctiva. Nonicteric Cardio: Tachycardic. Regular rhythm. No murmurs gallops rubs. Respiratory: Diffuse wheezes and rhonchi. Labored breathing on 3L NC O2. GI: Nonobese. Not diffusely tender Extremities: Radial pulses 2+ bilaterally upper extremities. Dorsalis pedis pulses 2+ on the left and 1+ on the right. MSK: Cachectic. No lower extremity swelling. Psych: Answers questions coherently. Appropriate behavior. - Assessment and Plan (1) Hypophosphatemia Current Visit: Yes Status: Acute Assessment and Plan: 03/11/19 -Likely secondary to anorexia secondary to vomiting and dysphagia from radiation -More short of breath today -Phosphorous 2.0 > 1.0> 1.0> less than 1 -6 packs of Neutra-Phos given. -Sodium phosphate 30 mmol daily (2) COPD exacerbation Current Visit: Yes Status: Acute Assessment and Plan: 03/11/19 -likely 2/2 recent stress from shingles, anorexia, chemo/rad. -Recent increased dyspnea, cough, sputum production, sputum purulence -Increased dyspnea on 3L O2 nc -Continue Symbicort. Held Spiriva -Albuterol/ipratropium scheduled, prednisone, azithromycin day 1 of 5, guaifenesin. (3) Shingles Current Visit: Yes Status: Acute Assessment and Plan: 03/10/19 -Likely secondary to stress of chemotherapy/radiation -As seen on physical exam -Valacyclovir, Roxicodone, morphine. 03/11/19 -Gabapentin 300 mg daily (4) Lung cancer Current Visit: Yes Status: Chronic Assessment and Plan: 03/10/19 -Squamous cell carcinoma -On chemotherapy and radiation -CTA chest showed decrease in known left hilar mass, new 3 mm lung nodule in right lower lobe, decreased cavitary lesion in the left lower lobe and adjacent lesion no change -Following Dr. Kaur and Dr. Adkins. 03/11/19 -No updates (5) Urinary retention Current Visit: Yes Status: Acute Assessment and Plan: -Chronic -Continue Flomax (6) Anemia Current Visit: Yes Status: Acute Assessment and Plan: 03/11/19 -Macrocytic. Doubt acute bleed. Likely dilutional versus B12 and folate deficiency. -Denies hematemesis, hemoptysis, hematochezia, hematuria. Has received 2.7 L of fluid -hypochromasia suggests potential chronic bleed. elevated RDW and a anisocytosis suggest B12 and folate deficiencies. -Order B12, folate levels -MMA to follow pending results -Continue to monitor (7) Malnutrition Current Visit: Yes Status: Acute Assessment and Plan: -Poor oral intake as above -Hypophosphatemia as above -Continue nutritional repletion DVT Prophylaxis: subq hep - Summary of Assessment and Plan Summary of Assessment and Plan: (1) Hypophosphatemia Current Visit: Yes Status: Acute Assessment and Plan: 03/11/19 -Likely secondary to anorexia secondary to vomiting and dysphagia from radiation -More short of breath today -Phosphorous 2.0 > 1.0> 1.0> less than 1 -6 packs of Neutra-Phos given. -Sodium phosphate 30 mmol daily (2) COPD exacerbation Current Visit: Yes Status: Acute Assessment and Plan: 03/11/19 -likely 2/2 recent stress from shingles, anorexia, chemo/rad. -Recent increased dyspnea, cough, sputum production, sputum purulence -Increased dyspnea on 3L O2 nc -Continue Symbicort. Held Spiriva -Albuterol/ipratropium scheduled, prednisone, azithromycin day 1 of 5, guaifenesin. (3) Shingles Current Visit: Yes Status: Acute Assessment and Plan: 03/10/19 -Likely secondary to stress of chemotherapy/radiation -As seen on physical exam -Valacyclovir, Roxicodone, morphine. 03/11/19 -Gabapentin 300 mg daily (4) Lung cancer Current Visit: Yes Status: Chronic Assessment and Plan: 03/10/19 -Squamous cell carcinoma -On chemotherapy and radiation -CTA chest showed decrease in known left hilar mass, new 3 mm lung nodule in right lower lobe, decreased cavitary lesion in the left lower lobe and adjacent lesion no change -Following Dr. Kaur and Dr. Adkins. 03/11/19 -No updates (5) Urinary retention Current Visit: Yes Status: Acute Assessment and Plan: -Chronic -Continue Flomax (6) Anemia Current Visit: Yes Status: Acute Assessment and Plan: 03/11/19 -Macrocytic. Doubt acute bleed. Likely dilutional versus B12 and folate deficiency. -Denies hematemesis, hemoptysis, hematochezia, hematuria. Has received 2.7 L of fluid -hypochromasia suggests potential chronic bleed. elevated RDW and a anisocytosis suggest B12 and folate deficiencies. -Order B12, folate levels -MMA to follow pending results -Continue to monitor (7) Malnutrition Current Visit: Yes Status: Acute Assessment and Plan: -Poor oral intake as above -Hypophosphatemia as above -Continue nutritional repletion - Time Spent with Patient Total time spent is Internal Medicine: Result - Labs CBC & Chem 7: 03/11/19 01:45 03/11/19 08:29 Labs: Short CBC 03/11/19 Range/Units 01:45 WBC 7.6 D (4.3-11.1) K/mcL Hgb 9.0 L (12.9-16.9) g/dL Hct 27.1 L (37.5-50.1) % Plt Count 149 (140-400) K/mcL Neutrophils # 6.4 (1.6-8.9) K/mcL BMP 03/10/19 03/11/19 01:01 01:45 Sodium 133 L 131 L Potassium 4.5 D 4.0 Chloride 94 L 97 L Carbon Dioxide 26 30 H BUN 4 L 5 L Creatinine 0.51 L 0.44 L Glucose 152 H 138 H Calcium 8.1 L 8.1 L Consult Discharge Plan - Plan [facility]errals: [facility] [Primary Care Provider[facility] - <Palomo aWlker - Last Filed: 03/11/19 17:42> Hospitalist Progress Note - Encounter Date of Encounter: 03/11/19 - Exam Vitals: Temp Pulse Resp BP Pulse Ox 98.1 F 97 20 122/77 93 03/11/19 16:31 03/11/19 16:31 03/11/19 16:31 03/11/19 16:31 03/11/19 16:31 - Assessment and Plan (1) Shingles Current Visit: Yes Status: Acute (2) Intractable pain Current Visit: Yes Status: Acute (3) Lung cancer Current Visit: Yes Status: Chronic (4) Hypertension Current Visit: No Status: Chronic (5) Tobacco abuse Current Visit: Yes Status: Chronic (6) Malnutrition Current Visit: Yes Status: Acute - Time Spent with Patient Total time spent is greater than 50% in coordination of care (as documented) at patient's floor/unit and/or counseling patient: Internal Medicine: Result - Labs CBC & Chem 7: 03/11/19 01:45 03/11/19 08:29 Labs: Short CBC 03/11/19 Range/Units 01:45 WBC 7.6 D (4.3-11.1) K/mcL Hgb 9.0 L (12.9-16.9) g/dL Hct 27.1 L (37.5-50.1) % Plt Count 149 (140-400) K/mcL Neutrophils # 6.4 (1.6-8.9) K/mcL BMP 03/11/19 03/11/19 01:45 08:29 Sodium 131 L 134 L Potassium 4.0 4.4 Chloride 97 L 92 L Carbon Dioxide 30 H 35 H BUN 5 L 4 L Creatinine 0.44 L 0.44 L Glucose 138 H 129 H Calcium 8.1 L 8.5 L - Attending Attestation I examined this patient and my medical decision-making was reviewed with the Resident Physician on 03/11/19. I agree with the documented findings, dispos ition and treatment plan as described except to the extent set forth below. Mr Arevalo is currently hospitalized for acute herpes zoster and intractable pain. His phosphorous is very low. He remains moderate to high risk due to potential for worsening clinical status. Mr Arevalo is still having a lot of pain. No fever or chills. Exam: Alert. Mod distress with pain. Mucus membranes dry. Heart not tachy. No wheeze. NC. Neck supple. Abd soft. Crusted rash R chest area. No edema. Moves all extremities Plan: Increase MS Contin to q8h. Start Neurontin. Replace phos. Anticipate d/c tomorrow. <Shabbir Saucedo G - Last Filed: 03/11/19 17:15> (3) Shingles Qualifiers: Herpes zoster complications: without complications Qualified Code(s): B02.9 - Zoster without complications (4) Lung cancer Qualifiers: Laterality: left Lung location: upper lobe of lung Qualified Code(s): C34.12 - Malignant neoplasm of upper lobe, left bronchus or lung <Palomo Walker A - Last Filed: 03/11/19 17:42> (1) Shingles Qualifiers: Herpes zoster complications: without complications Qualified Code(s): B02.9 - Zoster without complications (3) Lung cancer Qualifiers: Laterality: left Lung location: upper lobe of lung Qualified Code(s): C34.12 - Malignant neoplasm of upper lobe, left bronchus or lung (4) Hypertension Qualifiers: Hypertension type: essential hypertension Qualified Code(s): I10 - Essential (primary) hypertension (6) Malnutrition Qualifiers: Malnutrition type: protein-calorie malnutrition Protein-calorie malnutrition severity: severe Qualified Code(s): E43 - Unspecified severe protein-calorie ma lnutrition
[2019-03-11] MEDS: valACYclovir 500 MG TABLET PO SCH ×3 (08:41→22:10)
[2019-03-11] MEDS: Cholecalciferol (D-3) 1,000 UNIT (25MCG) TABLET PO SCH (08:42)
[2019-03-11] MEDS: Aspirin Enteric Coated 81 MG Tablet PO SCH (08:42)
[2019-03-11 09:14] LABS: BUN/Creatinine Ratio 9 (6-26); Blood Urea Nitrogen 4 mg/dL (8-23); Calcium 8.5 mg/dL (8.6-10.3); Carbon Dioxide 35 mEq/L (23-29); Chloride 92 mEq/L (98-107); Glucose 129 mg/dL (70-105); Osmolality,Calculated 277 (280-300); Potassium 4.4 mEq/L (3.5-5.1); Sodium 134 mEq/L (136-145); eGFR For African Americans > 60 (> 60); eGFR For Non-African Americans > 60 (> 60)
[2019-03-11] MEDS ORDERED: Cefepime HCl 2,000 MG in Water for inj. (sterile) 20 ML IVP SCH (11:00)
[2019-03-11] MEDS ORDERED: Azithromycin 250 MG TABLET PO ONE (11:47)
[2019-03-11] MEDS ORDERED: MethylPREDNISolone 40 MG/ML VIAL IVP SCH (12:00)
[2019-03-11] MEDS: predniSONE 20 MG TABLET PO SCH (12:43)
[2019-03-11] MEDS: Gabapentin 300 MG CAPSULE PO SCH (12:44)
[2019-03-11] MEDS ORDERED: Tiotropium 18 MCG inhalation IH PRN (13:15)
[2019-03-11] MEDS: Ipratropium/Albuterol Neb 3 ML IH SCH ×3 (15:30→22:36)
--- NOTE | 2019-03-11 23:57 | Electrocardiograph Report ---
[facility] Test Date: 2019-03-09 Pat Name: Abner Arevalo Department: [id number] Room: [facility] Gender: M Internal Security Manager: : 1950 Requested By: Jeffery Alvarez Order Number: [id number] Reading MD: Cathy Benson Measurements Intervals [place] Rate: 115 P: 0 AR: 147 QRS: 78 QRSD: 96 T: 88 QT: 334 QTc: 462 Interpretive Statements Sinus tachycardia Electronically Signed On 03-11-2019 23:55:23 EDT by Cathy Benson
[2019-03-12] MEDS: Ipratropium/Albuterol Neb 3 ML IH SCH ×3 (04:00→16:09)
[2019-03-12] MEDS: *HR* OxyCODONE Immed Rel 5 MG TABLET PO PRN ×3 (04:22→18:26)
[2019-03-12 04:49] LABS: Basophils % 0.2 %; Hematocrit 26.8 % (37.5-50.1); Immature Granulocytes % 0.6 % (0-4); Lymphocytes # 0.3 K/mcL (0.6-4.6); Lymphocytes % 6.3 %; Mean Corpuscular HGB Conc 33.6 g/dL (31.6-35.5); Mean Corpuscular Hemoglobin 35.3 pg (28.0-33.3); Mean Corpuscular Volume 105.1 fL (83.0-100.0); Mean Platelet Volume 9.7 fL (9.4-12.4); Monocytes # 0.8 K/mcL (0.0-1.3); Monocytes % 16.9 %; Neutrophils # 3.6 K/mcL (1.6-8.9); Platelet Count 140 K/mcL (140-400); Red Blood Count 2.55 M/mcL (4.19-5.50); Red Cell Distribution Width 20.6 % (11.5-14.5); White Blood Count 4.8 K/mcL (4.3-11.1)
[2019-03-12 05:06] LABS: BUN/Creatinine Ratio 8 (6-26); Blood Urea Nitrogen 3 mg/dL (8-23); Calcium 8.2 mg/dL (8.6-10.3); Carbon Dioxide 34 mEq/L (23-29); Chloride 93 mEq/L (98-107); Glucose 99 mg/dL (70-105); Magnesium 1.7 mg/dL (1.6-2.6); Osmolality,Calculated 267 (280-300); Potassium 3.6 mEq/L (3.5-5.1); Sodium 130 mEq/L (136-145); eGFR For African Americans > 60 (> 60); eGFR For Non-African Americans > 60 (> 60)
[2019-03-12 05:33] LABS: Folate 4.3 ng/mL (3.0-16.0)
[2019-03-12] MEDS: Morphine Sulfate ER (12 HR) 15 MG TABLET.ER PO SCH ×2 (07:17→14:59)
[2019-03-12] MEDS: *HR* Heparin 5,000 UNIT/ML VIAL SQ SCH (07:18)
--- NOTE | 2019-03-12 07:39 | Internal Med Progress Note ---
Hospitalist Progress Note - Encounter Date of Encounter: 03/12/19 - Subjective Interval History: Patient says the shingles pain is still present. Is trying to eat more. Believes that Magic mouthwash will help. - Exam Vitals: Temp Pulse Resp BP Pulse Ox 98.6 F 117 18 127/81 98 03/12/19 06:55 03/12/19 06:55 03/12/19 06:55 03/12/19 06:55 03/12/19 06:55 Exam: Gen.: Elderly male. No acute distress Skin: Erythematous rash covering dermatome pattern anteriorly and posteriorly over right chest. Good skin turgor ENT: Superior surface of the tongue shows white patches. Cardiac: Difficult to hear over lung sounds. Tricuspid post regular rhythm. No murmurs gallops or rubs Respiratory: Diffuse rhonchi and wheezing throughout. Breathing is labored. GI: Nontender. Nonobese. Extremities: No swelling bilateral lower extremities. Clubbing upper extremities. Psych: Appropriate behavior. Answers questions coherently - Assessment and Plan (1) Hypophosphatemia Current Visit: Yes Status: Acute (2) COPD exacerbation Current Visit: Yes Status: Acute (3) Shingles Current Visit: Yes Status: Acute (4) Lung cancer Current Visit: Yes Status: Chronic (5) Urinary retention Current Visit: Yes Status: Acute (6) Anemia Current Visit: Yes Status: Acute (7) Malnutrition Current Visit: Yes Status: Acute - Time Spent with Patient Total time spent is greater than 50% in coordination of care (as documented) at patient's floor/unit and/or counseling patient: Internal Medicine: Result - Labs CBC & Chem 7: 03/12/19 04:31 03/12/19 04:31 Labs: Short CBC 03/12/19 Range/Units 04:31 WBC 4.8 (4.3-11.1) K/mcL Hgb 9.0 L (12.9-16.9) g/dL Hct 26.8 L (37.5-50.1) % Plt Count 140 (140-400) K/mcL Neutrophils # 3.6 (1.6-8.9) K/mcL BMP 03/11/19 03/12/19 08:29 04:31 Sodium 134 L 130 L Potassium 4.4 3.6 Chloride 92 L 93 L Carbon Dioxide 35 H 34 H BUN 4 L 3 L Creatinine 0.44 L 0.39 L Glucose 129 H 99 Calcium 8.5 L 8.2 L Consult Discharge Plan - Plan [facility]errals: [facility] [Primary Care Provider] - ____ (3) Shingles Qualifiers: Herpes zoster complications: without complications Qualified Code(s): B02.9 - Zoster without complications (4) Lung cancer Qualifiers: Laterality: left Lung location: upper lobe of lung Qualified Code(s): C34.12 - Malignant neoplasm of upper lobe, left bronchus or lung (7) Malnutrition Qualifiers: Malnutrition type: protein-calorie malnutrition Protein-calorie malnutrition severity: severe Qualified Code(s): E43 - Unspecified severe protein-calorie malnutrition
[2019-03-12] MEDS: predniSONE 20 MG TABLET PO SCH (08:43)
[2019-03-12] MEDS: Gabapentin 300 MG CAPSULE PO SCH (08:44)
[2019-03-12] MEDS: valACYclovir 500 MG TABLET PO SCH ×2 (08:44→14:59)
[2019-03-12] MEDS: Aspirin Enteric Coated 81 MG Tablet PO SCH (08:44)
[2019-03-12] MEDS: Cholecalciferol (D-3) 1,000 UNIT (25MCG) TABLET PO SCH (08:44)
[2019-03-12] MEDS ORDERED: Azithromycin 250 MG TABLET PO SCH (09:00)
[2019-03-12] MEDS ORDERED: Tiotropium 18 MCG inhalation IH SCH (10:00)
[2019-03-12] MEDS ORDERED: Magic Mouthwash 10 ML UD Cup PO SCH (11:30)
[2019-03-12] MEDS: Budesonide/Formoterol 160/4.5 1 PUFF INH IH SCH (11:51)
[2019-03-12 15:26] VITALS: BP 116/72
--- NOTE | 2019-03-12 17:42 | Event Note ---
Date of Encounter: 03/12/19 Time of Encounter: 09:15 I examined this patient and my medical decision-making was reviewed with the Resident Physician on 03/12/19. I agree with the documented findings, disposition and treatment plan as described except to the extent set forth below. Mr Arevalo has been in observation due to intractable pain from herpes zoster. He developed significant electrolyte abnormalities. His phosphorous was difficult to correct and required a large amount of supplement. Today his phos has normalized and pain is improving with treatment. He is afebrile and ready for discharge home. Exam: Alert. Comfortable mostly - has intermittent nerve spasms. Mucus membranes dry. Heart reg. No wheeze. Abd soft. Plan: D/C home today. Complete Valtrex. Neurontin and MS Contin q 8h. Follow up with PCP and radiation oncology.
--- NOTE | 2019-03-12 18:07 | Discharge Summary ---
- NOTES TO OUTPATIENT PROVIDER Notes to Outpatient Provider: Mr. Arevalo is a 69 year old male with past medical history of squamous cell carcinoma of the lung, COPD, A. 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 He was diagnosed with malnutrition, COPD exacerbation, shingles. He was discharged with azithromycin and prednisone for COPD exacerbation, valacyclovir for shingles, and a refill of morphine sulfate for pain. Orders not resulted at time of discharge: Pending orders 03/09/19 17:05 Culture,Blood [BC] Stat Date of Encounter: 03/12/19 Time of Encounter: 08:30 - Discharge Diagnosis (1) Hypophosphatemia Priority: Primary Status: Acute (2) COPD exacerbation Priority: Secondary Status: Acute (3) Shingles Priority: Secondary Status: Acute Qualifiers: Herpes zoster complications: without complications Qualified Code(s): B02.9 - Zoster without complications (4) Lung cancer Priority: Secondary Status: Chronic Qualifiers: Laterality: left Lung location: upper lobe of lung Qualified Code(s): C34.12 - Malignant neoplasm of upper lobe, left bronchus or lung (5) Urinary retention Priority: Secondary Status: Acute (6) Anemia Priority: Secondary Status: Acute Qualifiers: Qualified Code(s): D64.9 - Anemia, unspecified (7) Malnutrition Priority: Secondary Status: Acute Qualifiers: Malnutrition type: protein-calorie malnutrition Protein-calorie malnutrition severity: severe Qualified Code(s): E43 - Unspecified severe protein-calorie malnutrition Hospital course: Mr. Arevalo is a 69 year old male with past medical history of squamous cell carcinoma of the lung, COPD, A. 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 He only mentioned to me the lack of sleep and rash. Vital signs significant for pulse of 114. Labs significant for negative troponins, hyponatremia at 133, hypokalemia at 3.3. EKG read as tachycardia, first-degree AV block no change from prior EKG, no evidence of new ischemia. CXR read as no acute cardiopulmonary process with the prominence of left hilum corresponding to his known lung cancer and a left main bronchus stent. CTA chest showed no PE, decrease in known left hilar mass, new 3 mm lung nodule in right lower lobe, decreased cavitary lesion in the left lower lobe and adjacent lesion no change, bronchial wall thickening likely bronchiolitis with mucoid plugging, and compression fracture at superior endplate of T7. He was admitted with the diagnoses of varicella-zoster shingles, musculoskeletal chest pain, squamous cell carcinoma, and COPD. IV acyclovir began in the ER was switched to oral valacyclovir. He was given oxycodone when necessary for pain and morphine. He was placed on albuterol/ipratropium when necessary. He was discharged with azithromycin and prednisone for COPD exacerbation, valacyclovir for shingles, and a refill of morphine sulfate. - Time Spent with Patient Total time spent providing and/or coordinating discharge services: - Discharge Medications Prescriptions: New Sucralfate [Carafate] 1 gm PO QIDAC PRN tablet PRN Reason: Heartburn Tamsulosin [Flomax] 0.4 mg PO HS capsule Morphine Sulfate ER (12 HR) [MS Contin] 1 tab PO Q8HR 7 Days #21 tab GuaiFENesin ER [Mucinex] 600 mg PO BID PRN tbbp.12hr PRN Reason: Congestion Gabapentin [Neurontin] 300 mg PO DAILY #7 capsule predniSONE [PredniSONE] 40 mg PO DAILY #8 tablet Omeprazole [PriLOSEC] 20 mg PO DAILY capsule. valACYclovir [Valtrex] 1,000 mg PO TID #15 tablet Azithromycin [Zithromax] 250 mg PO DAILY #4 tablet Continued Cholecalciferol (D-3) [Vitamin D] 2,000 units PO DAILY Prochlorperazine Maleate [Compazine] 10 mg PO Q6HR PRN #90 tablet PRN Reason: Nausea Ondansetron HCl 8 mg PO Q8H PRN #48 tablet PRN Reason: Nausea Budesonide/Formoterol 160/4.5 [Symbicort 160/4.5] 2 puff IH BIDR Tiotropium [place] [Spiriva Respimat] 2 puff IH DAILY Albuterol Neb [Proventil Neb] 2.5 mg IH Q6H PRN PRN Reason: BREATHING Albuterol Sulfate [Proventil Inhaler] 2 puff PO Q4H PRN PRN Reason: Shortness Of Breath Morphine Sulfate ER (12 HR) [MS Contin] 1 tab PO Q12HR 30 Days #60 tab OxyCODONE Immed Rel [Roxicodone 5 MG] 5 - 15 mg PO Q6HR PRN 30 Days #240 tablet PRN Reason: Pain Lisinopril [Zestril] 10 mg PO DAILY Aspirin [Lo-Dose Aspirin EC] 81 mg PO DAILY Ipratropium/Albuterol Neb [Duoneb] 3 ml IH AD PRN PRN Reason: Wheezing 3% Sodium Chloride Inhalation 4 ml IH BID PRN PRN Reason: Shortness Of Breath Home Medications: Cholecalciferol (D-3) [Vitamin D] 2,000 units PO DAILY 11/19/18 [History] Ondansetron HCl 8 mg PO Q8H PRN #48 tablet 11/25/18 [Rx] Prochlorperazine Maleate [Compazine] 10 mg PO Q6HR PRN #90 tablet 11/25/18 [Rx] Albuterol Neb [Proventil Neb] 2.5 mg IH Q6H PRN 12/23/18 [History] Albuterol Sulfate [Proventil Inhaler] 2 puff PO Q4H PRN 12/23/18 [History] Budesonide/Formoterol 160/4.5 [Symbicort 160/4.5] 2 puff IH BIDR 12/23/18 [History] Tiotropium [place] [Spiriva Respimat] 2 puff IH DAILY 12/23/18 [History] Aspirin [Lo-Dose Aspirin EC] 81 mg PO DAILY 02/23/19 [History] Ipratropium/Albuterol Neb [Duoneb] 3 ml IH AD PRN 02/23/19 [History] Lisinopril [Zestril] 10 mg PO DAILY 02/23/19 [History] Morphine Sulfate ER (12 HR) [MS Contin] 1 tab PO Q12HR 30 Days #60 tab 02/23/19 [Rx] OxyCODONE Immed Rel [Roxicodone 5 MG] 5 - 15 mg PO Q6HR PRN 30 Days #240 tablet 02/23/19 [Rx] 3% Sodium Chloride Inhalation 4 ml IH BID PRN 03/10/19 [History] Azithromycin [Zithromax] 250 mg PO DAILY #4 tablet 03/12/19 [Rx] Gabapentin [Neurontin] 300 mg PO DAILY #7 capsule 03/12/19 [Rx] GuaiFENesin ER [Mucinex] 600 mg PO BID PRN tbbp.12hr 03/12/19 [Rx] Morphine Sulfate ER (12 HR) [MS Contin] 1 tab PO Q8HR 7 Days #21 tab 03/12/19 [Rx] Omeprazole [PriLOSEC] 20 mg PO DAILY capsule. 03/12/19 [Rx] Sucralfate [Carafate] 1 gm PO QIDAC PRN tablet 03/12/19 [Rx] Tamsulosin [Flomax] 0.4 mg PO HS capsule 03/12/19 [Rx] predniSONE [PredniSONE] 40 mg PO DAILY #8 tablet 03/12/19 [Rx] valACYclovir [Valtrex] 1,000 mg PO TID #15 tablet 03/12/19 [Rx] Allergies/Adverse Reactions: Allergy/AdvReac Type Severity Reaction Status Date / Time codeine Allergy Anaphylaxis Verified 03/10/19 20:24 fentanyl AdvReac Hallucinati Verified 03/10/19 20:24 ng Date of admission: 03/09/19 21:51 Primary care physician: [facility] Consults: 03/09/19 22:56 Consult to Nutrition [CONS] Routine Comment: Consulting Provider: NUTRITION Reason for Dietary Consult: MST Score 03/11/19 09:17 Consult to Nurse Navigator [CONS] Routine Comment: - Constitutional Vitals: Temp Pulse Resp BP Pulse Ox 98.6 F 119 18 116/72 93 03/12/19 15:25 03/12/19 15:25 03/12/19 16:09 03/12/19 15:25 03/12/19 16:09 Exam: Gen.: Elderly male. No acute distress Skin: Erythematous rash covering dermatome pattern anteriorly and posteriorly over right chest. Good skin turgor ENT: Superior surface of the tongue shows white patches. Cardiac: Difficult to hear over lung sounds. Tricuspid post regular rhythm. No murmurs gallops or rubs Respiratory: Diffuse rhonchi and wheezing throughout. Breathing is labored. GI: Nontender. Nonobese. Extremities: No swelling bilateral lower extremities. Clubbing upper extremities. Psych: Appropriate behavior. Answers questions coherently - Patient Status Disposition: Home, Self-Care Condition: Fair Functional capacity at discharge: independent ambulation Overall status at discharge: patient is progressing back to baseline - Discharge Instructions Instructions: Chronic Obstructive Pulmonary Disease (DC), Chronic Hypertension (DC), Anemia (GEN) Follow Up With: [facility] [Primary Care Provider] - - Diet and Activity Activity: increase activity as tolerated Diet: low fat, low cholesterol, low salt diet
--- NOTE | 2019-03-14 13:34 | Physician Discharge Referral ---
Home Health/Hosp Referral Info Transfer to: Home Health Provider in Charge Post Discharge: PCP - Diagnosis (1) Shingles Priority: Primary Status: Acute (2) Intractable pain Priority: Secondary Status: Acute (3) Lung cancer Priority: Secondary Status: Chronic (4) Hypertension Priority: Secondary Status: Chronic (5) Tobacco abuse Priority: Secondary Status: Chronic (6) Malnutrition Priority: Secondary Status: Acute - Respiratory Orders Oxygen / L per min Smoking Cessation: Smoking cessation has been advised. For more information, call the [place] Tobacco Quit Line at 8-884-BFXN-NOW. - Diet/Nutrition Diet/Nutrition Orders: Regular - Activity Activity Orders: Up ad joe - Services Needed Following services are medically necessary services: Nursing, Physical Therapy, Occupational Therapy - Transfer Medications Prescriptions: Morphine Sulfate ER (12 HR) [MS Contin] 1 tab PO Q8HR 7 Days #21 tab Gabapentin [Neurontin] 300 mg PO DAILY #7 capsule predniSONE [PredniSONE] 40 mg PO DAILY #8 tablet valACYclovir [Valtrex] 1,000 mg PO TID #15 tablet Azithromycin [Zithromax] 250 mg PO DAILY #4 tablet Home Medications: Cholecalciferol (D-3) [Vitamin D] 2,000 units PO DAILY 11/19/18 [History] Ondansetron HCl 8 mg PO Q8H PRN #48 tablet 11/25/18 [Rx] Prochlorperazine Maleate [Compazine] 10 mg PO Q6HR PRN #90 tablet 11/25/18 [Rx] Albuterol Neb [Proventil Neb] 2.5 mg IH Q6H PRN 12/23/18 [History] Albuterol Sulfate [Proventil Inhaler] 2 puff PO Q4H PRN 12/23/18 [History] Budesonide/Formoterol 160/4.5 [Symbicort 160/4.5] 2 puff IH BIDR 12/23/18 [History] Tiotropium [place] [Spiriva Respimat] 2 puff IH DAILY 12/23/18 [History] Aspirin [Lo-Dose Aspirin EC] 81 mg PO DAILY 02/23/19 [History] Ipratropium/Albuterol Neb [Duoneb] 3 ml IH AD PRN 02/23/19 [History] Lisinopril [Zestril] 10 mg PO DAILY 02/23/19 [History] Morphine Sulfate ER (12 HR) [MS Contin] 1 tab PO Q12HR 30 Days #60 tab 02/23/19 [Rx] OxyCODONE Immed [place] [Roxicodone 5 MG] 5 - 15 mg PO Q6HR PRN 30 Days #240 tablet 02/23/19 [Rx] 3% Sodium Chloride Inhalation 4 ml IH BID PRN 03/10/19 [History] Azithromycin [Zithromax] 250 mg PO DAILY #4 tablet 03/12/19 [Rx] Gabapentin [Neurontin] 300 mg PO DAILY #7 capsule 03/12/19 [Rx] GuaiFENesin ER [Mucinex] 600 mg PO BID PRN tbbp.12hr 03/12/19 [Rx] Morphine Sulfate ER (12 HR) [MS Contin] 1 tab PO Q8HR 7 Days #21 tab 03/12/19 [Rx] Omeprazole [PriLOSEC] 20 mg PO DAILY capsule. 03/12/19 [Rx] Sucralfate [Carafate] 1 gm PO QIDAC PRN tablet 03/12/19 [Rx] Tamsulosin [Flomax] 0.4 mg PO HS capsule 03/12/19 [Rx] predniSONE [PredniSONE] 40 mg PO DAILY #8 tablet 03/12/19 [Rx] valACYclovir [Valtrex] 1,000 mg PO TID #15 tablet 03/12/19 [Rx] Allergies/Adverse Reactions: Allergy/AdvReac Type Severity Reaction Status Date / Time codeine Allergy Anaphylaxis Verified 03/10/19 20:24 fentanyl AdvReac Hallucinati Verified 03/10/19 20:24 ng Certification: Further, I certify that my clinical findings support that this patient is homebound (i.e. absences from home require considerable and taxing effort and are for medical reasons or congregation services or infrequently or short duration when for other reasons) because: Homebound Reason: Leaving home requires considerable and taxing effort due to condition Attestation: My signature below is to certify that this patient is under my care and that I, or nurse practitioner, or a physician's general assistant working with me, has a [id number] encounter with this patient.
== END 2019-03-12 18:39 | disposition home or self-care (01) ==
LOC: EMEROOARM 16:18 → 3NENU 16:18 → SUATTDRO 21:51 → 3NENU 22:03
PROVIDERS: ADMIT Internal Medicine Nephrology; ATTEND Internal Medicine

== ENCOUNTER 2019-04-03 04:20 | Observation (INO) ==
[2019-04-03] MEDS ORDERED: Ipratropium/Albuterol Neb 3 ML IH ONE (04:56)
[2019-04-03] MEDS ORDERED: Isovue-370 500 ML BOTTLE IVP ONE (04:59)
--- NOTE | 2019-04-03 05:03 | Emergency Department Note ---
Disposition Clinical Impression: SOB (shortness of breath) Shingles Qualifiers: Herpes zoster complications: without complications Qualified Code(s): B02.9 - Zoster without complications Chest pain Qualifiers: Chest pain type: unspecified Qualified Code(s): R07.9 - Chest pain, unspecified Disposition: Still a Patient Condition: Good Forms: ED Satisfaction Letter, Work/School Release Time of Disposition: 07:27 General Adult HPI - General Chief complaint: ED Abdominal Pain Stated complaint: Lung Cancer/ Losing Conciousness Time Seen by Provider: 04/03/19 04:28 Source: patient, EMS Limitations: no limitations Nursing Notes Reviewed: Yes Vital Signs Reviewed: Yes - History of Present Illness HPI Narrative: Male patient with a history of lung cancer is currently undergoing treatment for this at the [facility] presenting to emergency department complaining of nausea and inability to eat secondary to this. Complaining of syncope. States this happened several times over the past week. He denies being on a blood thinner. States today he does not remember the events. No history of PE or DVT. States that he did present after the syncope 2 days ago and was told that he did have orthostatic hypotension. Reports that his by mouth intake has not increased secondary to his nausea. Patient states that he has had shingles to the right chest. States he is being treated for that at this time. Has been on pain medication but states the pain skipping getting worse. He does report chest pain. That is where his zoster is as well. He also reports increased shortness of breath as well as pain on the left side of his chest. Pain Scale: 7 - Related Data Home Medications Medication Instructions Recorded Confirmed Cholecalciferol (D-3) [Vitamin D] 2,000 units PO DAILY 11/19/18 03/10/19 Albuterol Neb [Proventil Neb] 2.5 mg IH Q6H PRN 12/23/18 03/10/19 Albuterol Sulfate [Proventil 2 puff PO Q4H PRN 12/23/18 03/10/19 Inhaler] Budesonide/Formoterol 160/4.5 2 puff IH BIDR 12/23/18 03/10/19 [Symbicort 160/4.5] Tiotropium [place] [Spiriva 2 puff IH DAILY 12/23/18 03/10/19 Respimat] Aspirin [Lo-Dose Aspirin EC] 81 mg PO DAILY 02/23/19 03/10/19 Ipratropium/Albuterol Neb [Duoneb] 3 ml IH AD PRN 02/23/19 03/10/19 Lisinopril [Zestril] 10 mg PO DAILY 02/23/19 03/10/19 3% Sodium Chloride Inhalation 4 ml IH BID PRN 03/10/19 03/10/19 Previous Rx's Medication Instructions Recorded Ondansetron HCl 8 mg PO Q8H PRN #48 tablet 11/25/18 Prochlorperazine Maleate 10 mg PO Q6HR PRN #90 tablet 11/25/18 [Compazine] Azithromycin [Zithromax] 250 mg PO DAILY #4 tablet 03/12/19 Gabapentin [Neurontin] 300 mg PO DAILY #7 capsule 03/12/19 GuaiFENesin ER [Mucinex] 600 mg PO BID PRN tbbp.12hr 03/12/19 Morphine Sulfate ER (12 HR) [MS 1 tab PO Q8HR 7 Days #21 tab 03/12/19 Contin] Omeprazole [PriLOSEC] 20 mg PO DAILY capsule. 03/12/19 Sucralfate [Carafate] 1 gm PO QIDAC PRN tablet 03/12/19 Tamsulosin [Flomax] 0.4 mg PO HS capsule 03/12/19 predniSONE [PredniSONE] 40 mg PO DAILY #8 tablet 03/12/19 valACYclovir [Valtrex] 1,000 mg PO TID #15 tablet 03/12/19 Allergies Allergy/AdvReac Type Severity Reaction Status Date / Time codeine Allergy Anaphylaxis Verified 03/10/19 20:24 fentanyl AdvReac Hallucinati Verified 03/10/19 20:24 ng All systems ED: reviewed and negative except as stated. Review of Systems: As Per HPI Constitutional: Denies: fever, chills Cardiovascular: Reports: chest pain, syncope. Denies: palpitations Respiratory: Reports: cough, dyspnea, sputum production Gastrointestinal: Reports: nausea, vomiting. Denies: abdominal pain, diarrhea Genitourinary: Denies: urgency, dysuria, frequency Musculoskeletal: Reports: back pain. Denies: neck pain Neurological: Reports: weakness. Denies: headache Past Medical History - Past Medical History Attestation: Yes The following information was validated with the patient. Source: patient Medical history: Reports: cancer, COPD, hypertension Psychiatric history: Reports: no psych history - Social History Smoking Status: Current every day smoker Smokeless Tobacco Status: No Alcohol use: Reports: occasionally Drug use: Reports: none Physical Exam - General Limitations: no limitations General appearance: alert, in distress (Patient tachypneic.) - Head Head exam: atraumatic, normocephalic, normal inspection - Eye Eye exam: Present: normal appearance, PERRL, EOMI - ENT ENT exam: normal exam, normal oropharynx, mucous membranes dry - Neck Neck exam: Present: normal inspection, full ROM, trachea midline - Chest Chest inspection: Present: normal inspection, symmetric chest wall rise - Respiratory Respiratory exam: Present: wheezes (Expiratory throughout), accessory muscle use (Intercostal), other (Coarse lung sounds throughout) - Cardiovascular Cardiovascular exam: Present: tachycardia, normal heart sounds - Abdominal Exam Abdominal exam: Present: soft, Non-Tender. Absent: tenderness, distention, guarding, rebound, rigidity, organomegaly, Pa's sign, Rovsing's sign, tenderness at McBurney's Point - Extremities Exam Extremities exam: Present: normal inspection, full ROM, normal capillary refill. Absent: tenderness, pedal edema - Neurological Exam Neurological exam: Present: alert, oriented X3 - Psychiatric Psychiatric exam: Present: normal affect, normal mood - Skin Skin exam: Present: warm, dry, normal color, other (Rash consistent with zoster to the right chest wall. Open lesions to the back.). Absent: rash, cyanosis, diaphoresis Course Course Narrative: Patient with a history of cancer is tachypneic complaining of chest pain. Does have herpes zoster to the right chest wall but also complaining of pain to the left side of his chest. He has had several episodes of syncope. We will get a CT of patient's chest with contrast to rule out PE was basic lab workup. We will provide patient with a liter of fluid. He does appear to be dry on exam. States that this is secondary to not being able to tolerate anything to his nausea. We will likely be admitting the patient to the hospital for evaluation and treatment secondary to his dehydration and frequent syncope. Vital Signs Temperature 98.2 F 04/03/19 04:31 Pulse Rate 118 04/03/19 04:31 Respiratory Rate 22 04/03/19 04:31 Blood Pressure 158/97 04/03/19 04:31 O2 Sat by Pulse Oximetry 100 04/03/19 04:31 Temperature 98.2 F 04/03/19 04:31 Pulse Rate 118 04/03/19 06:11 Respiratory Rate 19 04/03/19 06:11 Blood Pressure 158/92 04/03/19 06:11 O2 Sat by Pulse Oximetry 100 04/03/19 06:11 Oxygen Delivery Oxygen Delivery Nasal Cannula Medical Decision Making - Medical Records Medical records reviewed: Yes I reviewed the patient's medical records. - Lab Data Lab results reviewed: Yes I reviewed the patient's lab results. Result diagrams: 04/03/19 05:26 04/03/19 05:26 Lab Results 04/03/19 04/03/19 Range/Units 05:26 05:26 WBC 4.3 (4.3-11.1) K/mcL RBC 2.95 L (4.19-5.50) M/mcL Hgb 11.0 L (12.9-16.9) g/dL Hct 32.2 L (37.5-50.1) % MCV 109.2 H (83.0-100.0) fL MCH 37.3 H (28.0-33.3) pg MCHC 34.2 (31.6-35.5) g/dL RDW 20.5 H (11.5-14.5) % Plt Count 182 (140-400) K/mcL MPV 9.7 (9.4-12.4) fL Immature Gran % 0.7 (0-4) % Seg Neutrophils % 71.8 % Lymphocytes % 10.6 % Monocytes % 15.7 % Eosinophils % 0.7 % Basophils % 0.5 % Neutrophils # 3.1 (1.6-8.9) K/mcL Lymphocytes # 0.5 L (0.6-4.6) K/mcL Monocytes # 0.7 (0.0-1.3) K/mcL Eosinophils # 0.0 (0.0-0.6) K/mcL Basophils # 0.0 (0.0-0.2) K/mcL Sodium 136 (136-145) mEq/L Potassium 4.0 (3.5-5.1) mEq/L Chloride 94 L (98-107) mEq/L Carbon Dioxide 35 H (23-29) mEq/L BUN 6 L (8-23) mg/dL Creatinine 0.34 L (0.70-1.30) mg/dL Est GFR ( Amer) > 60 (> 60) Est GFR (Non-Af Amer) > 60 (> 60) BUN/Creatinine Ratio 18 (6-26) Glucose 79 (70-105) mg/dL Calculated Osmolality 279 L (280-300) Calcium 8.0 L (8.6-10.3) mg/dL Magnesium 1.6 (1.6-2.6) mg/dL Troponin I < 0.03 (< 0.04) ng/mL - EKG Data EKG #1 EKG attestation: Yes I reviewed and interpreted this EKG. EKG results narrative: Sinus tachycardia at a rate of 114. PA interval is 185. QRS duration is 91. QT is 337. QTC is 465. No signs of acute ischemia. Good R-wave progression. No signs of WPW or Brugada.
[2019-04-03] MEDS ORDERED: 0.9 % Sodium Chloride 1,000 ML IVC STA (05:12)
[2019-04-03 05:40] LABS: Basophils % 0.5 %; Eosinophils % 0.7 %; Hematocrit 32.2 % (37.5-50.1); Immature Granulocytes % 0.7 % (0-4); Lymphocytes # 0.5 K/mcL (0.6-4.6); Lymphocytes % 10.6 %; Mean Corpuscular HGB Conc 34.2 g/dL (31.6-35.5); Mean Corpuscular Hemoglobin 37.3 pg (28.0-33.3); Mean Corpuscular Volume 109.2 fL (83.0-100.0); Mean Platelet Volume 9.7 fL (9.4-12.4); Monocytes # 0.7 K/mcL (0.0-1.3); Monocytes % 15.7 %; Neutrophils # 3.1 K/mcL (1.6-8.9); Platelet Count 182 K/mcL (140-400); Red Blood Count 2.95 M/mcL (4.19-5.50); Red Cell Distribution Width 20.5 % (11.5-14.5); Segmented Neutrophils % 71.8 %; White Blood Count 4.3 K/mcL (4.3-11.1)
[2019-04-03 05:58] LABS: BUN/Creatinine Ratio 18 (6-26); Blood Urea Nitrogen 6 mg/dL (8-23); Carbon Dioxide 35 mEq/L (23-29); Chloride 94 mEq/L (98-107); Glucose 79 mg/dL (70-105); Magnesium 1.6 mg/dL (1.6-2.6); Osmolality,Calculated 279 (280-300); Sodium 136 mEq/L (136-145); Troponin I < 0.03 ng/mL (< 0.04); eGFR For African Americans > 60 (> 60); eGFR For Non-African Americans > 60 (> 60)
[2019-04-03] MEDS ORDERED: *HR* HYDROmorphone (PF) 1 MG/ML SYRINGE IVP STA (06:00)
--- NOTE | 2019-04-03 07:26 | Emergency Department Note ---
Disposition Clinical Impression: SOB (shortness of breath) Shingles Qualifiers: Herpes zoster complications: without complications Qualified Code(s): B02.9 - Zoster without complications Chest pain Qualifiers: Chest pain type: unspecified Qualified Code(s): R07.9 - Chest pain, unspecified Lung cancer Qualifiers: Laterality: unspecified laterality Lung location: unspecified part of lung Qualified Code(s): C34.90 - Malignant neoplasm of unspecified part of unspecified bronchus or lung Syncope Qualifiers: Syncope type: unspecified Qualified Code(s): R55 - Syncope and collapse Disposition: Still a Patient Condition: Good Time of Disposition: 09:48 General Adult HPI - General Chief complaint: ED Abdominal Pain Stated complaint: Lung Cancer/ Losing Conciousness Time Seen by Provider: 04/03/19 04:28 Source: patient, EMS Limitations: no limitations - History of Present Illness Pain Scale: 9 - Related Data Home Medications Medication Instructions Recorded Confirmed Albuterol Neb [Proventil Neb] 2.5 mg IH Q6H PRN 12/23/18 04/03/19 Albuterol Sulfate [Proventil 2 puff PO Q4H PRN 12/23/18 04/03/19 Inhaler] Budesonide/Formoterol 160/4.5 2 puff IH BIDR 12/23/18 04/03/19 [Symbicort 160/4.5] Tiotropium [place] [Spiriva 2 puff IH DAILY 12/23/18 04/03/19 Respimat] Ipratropium/Albuterol Neb [Duoneb] 3 ml IH AD PRN 02/23/19 04/03/19 Lisinopril [Zestril] 10 mg PO DAILY 02/23/19 04/03/19 Previous Rx's Medication Instructions Recorded Prochlorperazine Maleate 10 mg PO Q6HR PRN #90 tablet 11/25/18 [Compazine] Gabapentin [Neurontin] 300 mg PO DAILY #7 capsule 03/12/19 GuaiFENesin ER [Mucinex] 600 mg PO BID PRN tbbp.12hr 03/12/19 Morphine Sulfate ER (12 HR) [MS 1 tab PO Q8HR 7 Days #21 tab 03/12/19 Contin] Sucralfate [Carafate] 1 gm PO QIDAC PRN tablet 03/12/19 predniSONE [PredniSONE] 40 mg PO DAILY #8 tablet 03/12/19 Allergies Allergy/AdvReac Type Severity Reaction Status Date / Time codeine Allergy Anaphylaxis Verified 03/10/19 20:24 fentanyl AdvReac Hallucinati Verified 03/10/19 20:24 ng Constitutional: Denies: fever, chills Cardiovascular: Reports: chest pain, syncope. Denies: palpitations Respiratory: Reports: cough, dyspnea, sputum production Gastrointestinal: Reports: nausea, vomiting. Denies: abdominal pain, diarrhea Genitourinary: Denies: urgency, dysuria, frequency Musculoskeletal: Reports: back pain. Denies: neck pain Neurological: Reports: weakness. Denies: headache Past Medical History - Past Medical History Medical history: Reports: cancer, COPD, hypertension Psychiatric history: Reports: no psych history - Social History Smoking Status: Current every day smoker Smokeless Tobacco Status: No Alcohol use: Reports: occasionally Drug use: Reports: none Physical Exam - General Limitations: no limitations General appearance: alert, in distress (Patient tachypneic.) Course Vital Signs Temperature 98.2 F 04/03/19 04:31 Pulse Rate 118 04/03/19 04:31 Respiratory Rate 22 04/03/19 04:31 Blood Pressure 158/97 04/03/19 04:31 O2 Sat by Pulse Oximetry 100 04/03/19 04:31 Temperature 98.5 F 04/04/19 07:18 Pulse Rate 97 04/04/19 07:18 Respiratory Rate 16 04/04/19 07:18 Blood Pressure 148/83 04/04/19 07:18 O2 Sat by Pulse Oximetry 97 04/04/19 07:18 Oxygen Delivery Oxygen Delivery Nasal Cannula Medical Decision Making - Lab Data Result diagrams: 04/04/19 04:16 04/04/19 04:16 Lab Results 04/03/19 04/03/19 04/03/19 Range/Units 05:26 05:26 08:23 WBC 4.3 (4.3-11.1) K/mcL RBC 2.95 L (4.19-5.50) M/mcL Hgb 11.0 L (12.9-16.9) g/dL Hct 32.2 L (37.5-50.1) % MCV 109.2 H (83.0-100.0) fL MCH 37.3 H (28.0-33.3) pg MCHC 34.2 (31.6-35.5) g/dL RDW 20.5 H (11.5-14.5) % Plt Count 182 (140-400) K/mcL MPV 9.7 (9.4-12.4) fL Immature Gran % 0.7 (0-4) % Seg Neutrophils % 71.8 % Lymphocytes % 10.6 % Monocytes % 15.7 % Eosinophils % 0.7 % Basophils % 0.5 % Neutrophils # 3.1 (1.6-8.9) K/mcL Lymphocytes # 0.5 L (0.6-4.6) K/mcL Monocytes # 0.7 (0.0-1.3) K/mcL Eosinophils # 0.0 (0.0-0.6) K/mcL Basophils # 0.0 (0.0-0.2) K/mcL Sample Site R Radial ABG pH 7.32 (7.32-7.45) pH Units ABG pCO2 64 H (35-45) mmHg ABG pO2 104 (85-104) mmHg ABG HCO3 33 H (21-27) mEq/L ABG Total CO2 35 H (20-26) mEq/L ABG O2 Saturation 97 (95-98) % ABG Base Excess 5 H (-2 to 3) mEq/L Sivakumar Test Positive O2 Delivery Device Cannula Inspired O2 36.0 (1-15=lpm me93-953=%) Sodium 136 (136-145) mEq/L Potassium 4.0 (3.5-5.1) mEq/L Chloride 94 L (98-107) mEq/L Carbon Dioxide 35 H (23-29) mEq/L BUN 6 L (8-23) mg/dL Creatinine 0.34 L (0.70-1.30) mg/dL Est GFR ( Amer) > 60 (> 60) Est GFR (Non-Af Amer) > 60 (> 60) BUN/Creatinine Ratio 18 (6-26) Glucose 79 (70-105) mg/dL Calculated Osmolality 279 L (280-300) Calcium 8.0 L (8.6-10.3) mg/dL Magnesium 1.6 (1.6-2.6) mg/dL Troponin I < 0.03 (< 0.04) ng/mL Attestation Statement - Attestation Attestation: Care of patient assumed from Dr. Evans and Dr. Wren at 7 AM pending CTA chest. At the time of my exam the patient is sleeping. He has a history of active lung cancer and presented with dyspnea. It was also reported that he has a zoster-like rash across his chest
--- NOTE | 2019-04-03 07:54 | Emergency Department Note ---
Disposition Clinical Impression: SOB (shortness of breath) Shingles Qualifiers: Herpes zoster complications: without complications Qualified Code(s): B02.9 - Zoster without complications Chest pain Qualifiers: Chest pain type: unspecified Qualified Code(s): R07.9 - Chest pain, unspecified Lung cancer Qualifiers: Laterality: unspecified laterality Lung location: unspecified part of lung Qualified Code(s): C34.90 - Malignant neoplasm of unspecified part of unspecified bronchus or lung Syncope Qualifiers: Syncope type: unspecified Qualified Code(s): R55 - Syncope and collapse Disposition: Still a Patient Condition: Good [facility] Care Provider[facility] - Forms: ED Satisfaction Letter, Work/School Release Time of Disposition: 07:27 General Adult HPI - General Chief complaint: ED Abdominal Pain Stated complaint: Lung Cancer/ Losing Conciousness Time Seen by Provider: 04/03/19 04:28 Source: patient, EMS Limitations: no limitations Nursing Notes Reviewed: Yes Vital Signs Reviewed: Yes - History of Present Illness Pain Scale: 9 - Related Data Home Medications Medication Instructions Recorded Confirmed Cholecalciferol (D-3) [Vitamin D] 2,000 units PO DAILY 11/19/18 03/10/19 Albuterol Neb [Proventil Neb] 2.5 mg IH Q6H PRN 12/23/18 03/10/19 Albuterol Sulfate [Proventil 2 puff PO Q4H PRN 12/23/18 03/10/19 Inhaler] Budesonide/Formoterol 160/4.5 2 puff IH BIDR 12/23/18 03/10/19 [Symbicort 160/4.5] Tiotropium [place] [Spiriva 2 puff IH DAILY 12/23/18 03/10/19 Respimat] Aspirin [Lo-Dose Aspirin EC] 81 mg PO DAILY 02/23/19 03/10/19 Ipratropium/Albuterol Neb [Duoneb] 3 ml IH AD PRN 02/23/19 03/10/19 Lisinopril [Zestril] 10 mg PO DAILY 02/23/19 03/10/19 3% Sodium Chloride Inhalation 4 ml IH BID PRN 03/10/19 03/10/19 Previous Rx's Medication Instructions Recorded Ondansetron HCl 8 mg PO Q8H PRN #48 tablet 11/25/18 Prochlorperazine Maleate 10 mg PO Q6HR PRN #90 tablet 11/25/18 [Compazine] Azithromycin [Zithromax] 250 mg PO DAILY #4 tablet 03/12/19 Gabapentin [Neurontin] 300 mg PO DAILY #7 capsule 03/12/19 GuaiFENesin ER [Mucinex] 600 mg PO BID PRN tbbp.12hr 03/12/19 Morphine Sulfate ER (12 HR) [MS 1 tab PO Q8HR 7 Days #21 tab 03/12/19 Contin] Omeprazole [PriLOSEC] 20 mg PO DAILY capsule. 03/12/19 Sucralfate [Carafate] 1 gm PO QIDAC PRN tablet 03/12/19 Tamsulosin [Flomax] 0.4 mg PO HS capsule 03/12/19 predniSONE [PredniSONE] 40 mg PO DAILY #8 tablet 03/12/19 valACYclovir [Valtrex] 1,000 mg PO TID #15 tablet 03/12/19 Allergies Allergy/AdvReac Type Severity Reaction Status Date / Time codeine Allergy Anaphylaxis Verified 03/10/19 20:24 fentanyl AdvReac Hallucinati Verified 03/10/19 20:24 ng Constitutional: Denies: fever, chills Cardiovascular: Reports: chest pain, syncope. Denies: palpitations Respiratory: Reports: cough, dyspnea, sputum production Gastrointestinal: Reports: nausea, vomiting. Denies: abdominal pain, diarrhea Genitourinary: Denies: urgency, dysuria, frequency Musculoskeletal: Reports: back pain. Denies: neck pain Neurological: Reports: weakness. Denies: headache Past Medical History - Past Medical History Medical history: Reports: cancer, COPD, hypertension Psychiatric history: Reports: no psych history - Social History Smoking Status: Current every day smoker Smokeless Tobacco Status: No Alcohol use: Reports: occasionally Drug use: Reports: none Physical Exam - General Limitations: no limitations General appearance: alert, in distress (Patient tachypneic.) Course Vital Signs Temperature 98.2 F 04/03/19 04:31 Pulse Rate 118 04/03/19 04:31 Respiratory Rate 22 04/03/19 04:31 Blood Pressure 158/97 04/03/19 04:31 O2 Sat by Pulse Oximetry 100 04/03/19 04:31 Temperature 98.2 F 04/03/19 04:31 Pulse Rate 118 04/03/19 06:11 Respiratory Rate 19 04/03/19 06:11 Blood Pressure 158/92 04/03/19 06:11 O2 Sat by Pulse Oximetry 100 04/03/19 06:11 Oxygen Delivery Oxygen Delivery Nasal Cannula Medical Decision Making - Medical Records Medical records reviewed: Yes I reviewed the patient's medical records. - Lab Data Lab results reviewed: Yes I reviewed the patient's lab results. Result diagrams: 04/03/19 05:26 04/03/19 05:26 Lab Results 04/03/19 04/03/19 Range/Units 05:26 05:26 WBC 4.3 (4.3-11.1) K/mcL RBC 2.95 L (4.19-5.50) M/mcL Hgb 11.0 L (12.9-16.9) g/dL Hct 32.2 L (37.5-50.1) % MCV 109.2 H (83.0-100.0) fL MCH 37.3 H (28.0-33.3) pg MCHC 34.2 (31.6-35.5) g/dL RDW 20.5 H (11.5-14.5) % Plt Count 182 (140-400) K/mcL MPV 9.7 (9.4-12.4) fL Immature Gran % 0.7 (0-4) % Seg Neutrophils % 71.8 % Lymphocytes % 10.6 % Monocytes % 15.7 % Eosinophils % 0.7 % Basophils % 0.5 % Neutrophils # 3.1 (1.6-8.9) K/mcL Lymphocytes # 0.5 L (0.6-4.6) K/mcL Monocytes # 0.7 (0.0-1.3) K/mcL Eosinophils # 0.0 (0.0-0.6) K/mcL Basophils # 0.0 (0.0-0.2) K/mcL Sodium 136 (136-145) mEq/L Potassium 4.0 (3.5-5.1) mEq/L Chloride 94 L (98-107) mEq/L Carbon Dioxide 35 H (23-29) mEq/L BUN 6 L (8-23) mg/dL Creatinine 0.34 L (0.70-1.30) mg/dL Est GFR ( Amer) > 60 (> 60) Est GFR (Non-Af Amer) > 60 (> 60) BUN/Creatinine Ratio 18 (6-26) Glucose 79 (70-105) mg/dL Calculated Osmolality 279 L (280-300) Calcium 8.0 L (8.6-10.3) mg/dL Magnesium 1.6 (1.6-2.6) mg/dL Troponin I < 0.03 (< 0.04) ng/mL - EKG Data EKG #1 EKG attestation: Yes I reviewed and interpreted this EKG. EKG results narrative: EKG shows sinus tachycardia with ventricular rate of 114. PVC. No significant ST segment elevation or depression. Attestation Statement - Attestation Attestation: I, Wong Evans MD, personally evaluated this patient and discussed their management with the resident physician. I reviewed the resident's note and agree with the documented findings, medical decision making, and plan of care. I reviewed the residents documentation and agree with the residents assessment and plan of care. I have personally had face to face time with the patient. I personally supervised and was present for the bedolla/critical portions of the following procedures completed by the resident: EKG interpretation. 69-year-old male with history of lung cancer presents to the emergency department with a complaint of increasing episodes of syncope and just blacking out. He had an episode tonight and fell. He denies any injury from the fall. He does complain of increasing shortness of breath as well as some chest pain. On examination patient is a thin elderly male in no acute distress. He is alert and oriented 3. There is no cyanosis or diaphoresis. Breath sounds are decreased bilaterally with diffuse tight bilateral expiratory wheezes. Heart regular with a mild tachycardia. Abdomen soft and nontender with normal bowel sounds. No gross focal neurological deficits. EKG shows sinus tachycardia with ventricular rate of 114. PVC. No significant ST segment elevation or depression. Labs reviewed. At morning shift change patient is still awaiting a CTA of the chest. Patient is signed out to the [facility] physician, Dr. More. Disposition plan is admission after return of the CTA.
[2019-04-03] MEDS ORDERED: predniSONE 20 MG TABLET PO ONE (08:23)
[2019-04-03 08:26] LABS: ABG Base Excess 5 mEq/L (-2 to 3); ABG HCO3 33 mEq/L (21-27); ABG Oxygen Saturation 97 % (95-98); ABG PCO2 64 mmHg (35-45); ABG PH 7.32 pH Units (7.32-7.45); ABG PO2 104 mmHg (85-104); ABG TCO2 35 mEq/L (20-26)
[2019-04-03] MEDS ORDERED: Naloxone 0.4 MG/ML INJ IVP PRN (09:29)
[2019-04-03] MEDS ORDERED: Ondansetron 4 MG/2 ML VIAL IVP PRN (09:29)
[2019-04-03] MEDS ORDERED: Acetaminophen 325 MG TABLET PO PRN (09:29)
--- NOTE | 2019-04-03 09:29 | Internal Med History&Physical ---
Date of Encounter: 04/03/19 Time of Encounter: 08:30 Internal Medicine - H&P: HPI Chief complaint: presyncope, uncontrolled right shingles chest pain Admitted From: Home History of present illness: Mr. Arevalo is a 69 year old male who presented from home where he lives with friends for multiple complaints, with chief complaint varying when speaking to various clinical providers. On my exam his main conomplaint is uncontrolled right chest wall pain at site of his recent shingles. he also noted near syncope NOT syncope last night with multiple episodes over three months and known orthostatic hypotension. He has lung cancer with last chemo one month ago and s/p radiation therapy. He is stating he has declined over last three months and "couldn't take the pain in my side anymore" so presented to ED today awake, resting on o2 nc. He notes right chest wall pain present for 3 months with shingles history. he complete valtrex treatment and rash is healed with residual pain. it is ten out of ten and constant. He came to ED bc he couldn't tolerate it anymore. opiates at home rx by his oncologist make it tolerable but don't control pain for duration intended. He has no new vesicles. He denies fevers, chills, nausea or emesis. He has had very poor appetite over last month. Not eating routinely but drinking ensure. He has been diagnosed with orthostatic hypotension, treated at home by only cautiously going from sitting to standing. Sometimes he faints but mostly he has near syncope and he sits back down. Last night he had near syncope and had to sit back down in his recliner. He denies syncopal event recently, denies hitting head or injury with sitting back into his recliner, no assoicated dizziness, palpitations, cp or sob. He has had progressive sob since his surgery which was months ago. He denies acute change in sob or cough. He wears 2L at home, not continuously. He has pco2 elevation on vbg but denies any somnolence or confusion. + wheezing, clear sputum and no hemoptysis. 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 feet reconstruction surgery - Social History Smoking Status: Current every day smoker Smokeless Tobacco Status: No Alcohol use: occasionally Drug use: none - Family History Mother Hx Family Cancer: Yes (colon) Internal Medicine - H&P: Meds Prochlorperazine Maleate [Compazine] 10 mg PO Q6HR PRN #90 tablet 11/25/18 [Rx] Albuterol Neb [Proventil Neb] 2.5 mg IH Q6H PRN 12/23/18 [History] Albuterol Sulfate [Proventil Inhaler] 2 puff PO Q4H PRN 12/23/18 [History] Budesonide/Formoterol 160/4.5 [Symbicort 160/4.5] 2 puff IH BIDR 12/23/18 [History] Tiotropium [place] [Spiriva Respimat] 2 puff IH DAILY 12/23/18 [History] Ipratropium/Albuterol Neb [Duoneb] 3 ml IH AD PRN 02/23/19 [History] Lisinopril [Zestril] 10 mg PO DAILY 02/23/19 [History] Gabapentin [Neurontin] 300 mg PO DAILY #7 capsule 03/12/19 [Rx] GuaiFENesin ER [Mucinex] 600 mg PO BID PRN tbbp.12hr 03/12/19 [Rx] Morphine Sulfate ER (12 HR) [MS Contin] 1 tab PO Q8HR 7 Days #21 tab 03/12/19 [Rx] Sucralfate [Carafate] 1 gm PO QIDAC PRN tablet 03/12/19 [Rx] predniSONE [PredniSONE] 40 mg PO DAILY #8 tablet 03/12/19 [Rx] Allergy/AdvReac Type Severity Reaction Status Date / Time codeine Allergy Anaphylaxis Verified 03/10/19 20:24 fentanyl AdvReac Hallucinati Verified 03/10/19 20:24 ng All Systems PM: A 10-system review of systems was performed and is negative for pertinent findings except as documented above in the HPI. - Constitutional Vitals: Temp Pulse Resp BP Pulse Ox 98.2 F 118 19 158/92 100 04/03/19 04:31 04/03/19 06:11 04/03/19 06:11 04/03/19 06:11 04/03/19 06:11 Exam: General: awake, alert, appears stated age, cachectic HEENT:EOM, pupils equal, round, moist mucus membranes, clear oropharynx Neck: supple, trachea midline Cardiovascular:regular rate and rhythm, normal S1 & S2, no rubs, murmurs or gallops. No JVD. radial pulses 2+, no lower extremity edema Lungs:diminished throught, scattered exp wheezes, no crackles. Normal respiratory effort on o2 NC Abdomen:Soft, non-tender, non-distended, no rigidity, + bowel sounds Extremities:No deformity, no edema or tenderness, no joint swelling or clubbing. Neurological: AAOx3, CN grossly intact,strength intact and equal throughout, sensation intact to light touch throughout Skin:right chest wall and right back healed zoster scars/wounds, no active vesicles Internal Med - H&P Results - Labs CBC & Chem 7: 04/03/19 05:26 04/03/19 05:26 Labs: Short CBC 04/03/19 Range/Units 05:26 WBC 4.3 (4.3-11.1) K/mcL Hgb 11.0 L (12.9-16.9) g/dL Hct 32.2 L (37.5-50.1) % Plt Count 182 (140-400) K/mcL Neutrophils # 3.1 (1.6-8.9) K/mcL BMP 04/03/19 05:26 Sodium 136 Potassium 4.0 Chloride 94 L Carbon Dioxide 35 H BUN 6 L Creatinine 0.34 L Glucose 79 Calcium 8.0 L Cardiac Enzymes 04/03/19 Range/Units 05:26 Troponin I < 0.03 (< 0.04) ng/mL - ABG Interpretation ABG results: 04/03/19 08:23 ABG pH 7.32 ABG pCO2 64 H ABG pO2 104 ABG HCO3 33 H ABG Total CO2 35 H ABG O2 Saturation 97 ABG Base Excess 5 H - Impressions ITS Impressions Chest X-Ray 04/03/19 04:56 IMPRESSION: Emphysema with COPD, diffuse airway inflammation and multifocal nodular opacities suspicious for aspiration sequela-presumably a chronic recurrent process given prior imaging findings. D/ / Jeremiah Treviño / Jeremiah Treviño Interpreting Provider: Jeremiah Treviño Head CT 04/03/19 04:57 IMPRESSION: No acute intracranial abnormality. D/ / Macario Lancaster MD / Macario Lancaster MD Interpreting Provider: Macario Lancaster MD Chest CTA 04/03/19 04:59 IMPRESSION: No pulmonary embolism or acute pulmonary process demonstrated. No significant change from 03/09/2019. D/ / Macario Lancaster MD / Macario Lancaster MD Interpreting Provider: Macario Lancaster MD - Summary of Assessment and Plan Summary of Assessment and Plan: Orthostatic Hypotension with presyncope/syncope Hx CT head neg for acute changes -check orthostats, then IVFs -fall precautions Herpes Zoster- 1 month ago s/p Valtrex treated Post Herpetic Neuralgia Uncontrolled Pain -have placed order for onc consult as they manage his pain meds per pt, cont home meds and will adjust as needed for breakthrough -cont gabapentin ABG w Hypercarbia suspect chronic given complete ABG results, no mental status change- likely to retain given his pulm history, goal spo2 88-92% Possible Acute on Chronic Resp Failure- home O2 2L NC intermittently, on 4L here but satting above goal, weaning to discern if this is actually acute increase in requirement , no hypoxia documented and on 4L in ED entire time Lung Cancer - follows with [facility], last chemo one month ago, + radiation hx COPD Hx CTA chest No PE or acute process, no change from prior -cont home meds, onc consulted as above, nebs, PO steroids chronic anemia at baseline failure to thrive consult nutrition, will need pt/ot /sw vte ppx lovenox full code
[2019-04-03] MEDS: Levalbuterol Neb 0.63 MG/3 ML IH SCH ×2 (10:24→21:44)
[2019-04-03] MEDS ORDERED: Sucralfate 1 GM TABLET PO PRN (14:04)
[2019-04-03] MEDS: Morphine Sulfate ER (12 HR) 15 MG TABLET.ER PO SCH (14:46)
[2019-04-03] MEDS: *HR* OxyCODONE Immed Rel 15 MG TABLET PO PRN (17:43)
[2019-04-03] MEDS: 0.9 % Sodium Chloride 1,000 ML IVC SCH (18:47)
[2019-04-03] MEDS: Ipratropium Neb 0.5 MG NEBULIZER IH PRN (19:37)
[2019-04-03] MEDS: Budesonide/Formoterol 160/4.5 1 PUFF INH IH SCH (21:44)
[2019-04-04] MEDS: Morphine Sulfate ER (12 HR) 15 MG TABLET.ER PO SCH ×3 (00:56→15:45)
[2019-04-04 05:19] LABS: Hematocrit 31.8 % (37.5-50.1); Hemoglobin 10.8 g/dL (12.9-16.9); Lymphocytes # 0.3 K/mcL (0.6-4.6); Mean Corpuscular Hemoglobin 36.9 pg (28.0-33.3); Mean Corpuscular Volume 108.5 fL (83.0-100.0); Mean Platelet Volume 10.2 fL (9.4-12.4); Platelet Count 162 K/mcL (140-400); Red Blood Count 2.93 M/mcL (4.19-5.50); Red Cell Distribution Width 19.5 % (11.5-14.5); White Blood Count 3.4 K/mcL (4.3-11.1)
[2019-04-04 05:36] LABS: BUN/Creatinine Ratio 18 (6-26); Blood Urea Nitrogen 4 mg/dL (8-23); Calcium 7.4 mg/dL (8.6-10.3); Carbon Dioxide 30 mEq/L (23-29); Chloride 93 mEq/L (98-107); Glucose 80 mg/dL (70-105); Magnesium 1.7 mg/dL (1.6-2.6); Osmolality,Calculated 268 (280-300); Phosphorous 1.5 mg/dL (2.7-4.5); Potassium 3.3 mEq/L (3.5-5.1); Sodium 131 mEq/L (136-145); eGFR For African Americans > 60 (> 60); eGFR For Non-African Americans > 60 (> 60)
[2019-04-04] MEDS: *HR* Enoxaparin 40 MG/0.4 ML SYRINGE SQ SCH (05:51)
[2019-04-04] MEDS: *HR* OxyCODONE Immed Rel 15 MG TABLET PO PRN ×3 (05:55→18:06)
[2019-04-04 06:17] LABS: Monocytes # 0.3 K/mcL (0.0-1.3); Neutrophils # 2.7 K/mcL (1.6-8.9); Platelet Estimate Normal (Normal)
[2019-04-04] MEDS: Levalbuterol Neb 0.63 MG/3 ML IH SCH ×2 (07:27→22:06)
[2019-04-04] MEDS: Budesonide/Formoterol 160/4.5 1 PUFF INH IH SCH ×2 (07:27→22:06)
[2019-04-04] MEDS: 0.9 % Sodium Chloride 1,000 ML IVC SCH (08:31)
[2019-04-04] MEDS: predniSONE 20 MG TABLET PO SCH (08:34)
[2019-04-04] MEDS ORDERED: Gabapentin 300 MG CAPSULE PO SCH (09:00)
--- NOTE | 2019-04-04 12:06 | Oncology Inp Consult Note ---
<Barbara Tinajero L - Last Filed: 04/04/19 17:13> Date of Encounter: 04/04/19 Time of Encounter: 09:30 Assessment and Plan (1) DVT prophylaxis Status: Acute Assessment and plan: Lovenox SQ (2) Intractable pain Status: Acute Assessment and plan: Right anterior chest wall Pain increased with inspiration-CTA negative for PE Appears consistent with postherpetic neuralgia Plan: Pain does not appear consistent with radiation induced esophagitis Started neurontin and lidocaine patch per hospitalist Morphine sulfate ER 15 mg PO Q8H Oxycodone 16 mg Q6H for breakthrough-utilized 3 doses in past 24H Patient reports no improvement in pain Could consider Lyrica for second line or TCA for third line if no improvement with neurontin, would not recommend increasing opioids as pain appears neuropathic in nature Could consider palliative care consult if needed Oncology will otherwise plan to sign off, please feel free to re-consult with any further questions or concerns (3) Lung cancer Status: Chronic Assessment and plan: 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 Treated with concurrent chemoradiotherapy (Carbo/Taxol) to the left hilum, left upper lobe and mediastinum, 6000 cGy from 12/07/2018-01/28/2019. Plan: CTA on admission notes No significant change from 03/09/2019, completion of chemorad was ~2 months ago, would recommend restaging in ~1 month to evaluate full effects of treatment Surveillance imaging as outpatient Oncology will otherwise plan to sign off, please feel free to re-consult with any further questions or concerns Qualifiers: Laterality: unspecified laterality Lung location: unspecified part of lung Qualified Code(s): C34.90 - Malignant neoplasm of unspecified part of unspecified bronchus or lung (4) Malnutrition Status: Acute Assessment and plan: Decreased appetite, weight loss, progressive weakness, fatigue and pre-syncopal like episodes at home. 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 Qualifiers: Malnutrition type: protein-calorie malnutrition Protein-calorie malnutrition severity: severe Qualified Code(s): E43 - Unspecified severe protein-calorie malnutrition (5) Anemia Status: Acute Assessment and plan: WBC-3.4 Hgb- 10.8, MCV 108 Plt-162 Plan: B12, Folate, LDH, Iron profile, Smear ordered in AM Qualifiers: Qualified Code(s): D64.9 - Anemia, unspecified - Data of Consult Patient: known to practice within the last 3 years Consult date: 04/04/19 Requesting Physician: Jluis Gonzalez MD [facility] Care Provider[facility] - Consult Narrative Reason for consult: Pain control, squamous cell carcinoma History of present illness: Mr. 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 Treated with concurrent chemoradiotherapy (Carbo/Taxol) to the left hilum, left upper lobe and mediastinum, 6000 cGy from 12/07/2018- 01/28/2019. He was seen in follow up by Dr. Kaur on 02/23/2019 and reported increased pain radiating from mid to right chest. Given timeframe, acute esophagitis should have been improving at this point, he was started on diflucan for concern for shwetha component. Patient is a poor historian and does not recall if he completed doses of diflucan. It appears that sometime following this he developed herpes zoster to right posterior chest which he endorses was treated with Valtrex. Since this time, he has developed persistent pain, worse with breathing, to right anterior chest. This pain has been present and persistent since his herpes zoster infection. He presented to ER for pain control. Otherwise, he endorses a history of decreased appetite, weight loss, progressive weakness, fatigue and pre-syncopal like episodes at home. Denies dysphagia or odynophagia. Positive for orthostatic hypoension. Wears continuous O2. 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 feet reconstruction surgery - Social History Smoking Status: Current every day smoker Smokeless Tobacco Status: No Alcohol use: occasionally Drug use: none - Family History Mother Hx Family Cancer: Yes (colon) Medications and Allergies Prochlorperazine Maleate [Compazine] 10 mg PO Q6HR PRN #90 tablet 11/25/18 [Rx] Albuterol Neb [Proventil Neb] 2.5 mg IH Q6H PRN 12/23/18 [History] Albuterol Sulfate [Proventil Inhaler] 2 puff PO Q4H PRN 12/23/18 [History] Budesonide/Formoterol 160/4.5 [Symbicort 160/4.5] 2 puff IH BIDR 12/23/18 [History] Tiotropium [place] [Spiriva Respimat] 2 puff IH DAILY 12/23/18 [History] Lisinopril [Zestril] 10 mg PO DAILY 02/23/19 [History] Morphine Sulfate ER (12 HR) [MS Contin] 1 tab PO Q8HR 7 Days #21 tab 03/12/19 [Rx] Sucralfate [Carafate] 1 gm PO QIDAC PRN tablet 03/12/19 [Rx] Alendronate Sodium 70 mg PO FR 04/04/19 [History] Aspirin Enteric Coated [Aspirin EC] 81 mg PO DAILY 04/04/19 [History] Calcium Carbonate 650 mg PO BID 04/04/19 [History] Cholecalciferol (D-3) [Vitamin D] 2,000 unit PO DAILY 04/04/19 [History] Ondansetron HCl 8 mg PO Q8H PRN 04/04/19 [History] Oxycodone HCl [Roxybond] 5 - 15 mg PO Q6H PRN 04/04/19 [History] Pantoprazole Sodium [Protonix] 40 mg PO DAILY 04/04/19 [History] Tamsulosin HCl [Flomax] 0.4 mg PO HS 04/04/19 [History] Varenicline [Chantix] 1 mg PO BID 04/04/19 [History] Allergy/AdvReac Type Severity Reaction Status Date / Time codeine Allergy Anaphylaxis Verified 03/10/19 20:24 fentanyl AdvReac Hallucinati Verified 03/10/19 20:24 ng Constitutional: Present: anorexia, fatigue, malaise, weakness, weight loss. Absent: chills, fever(s), frequent falls, headache(s), night sweats Eyes: Absent: change in vision Nose, mouth and throat: Absent: dysphagia, odynophagia Cardiovascular: Present: as per HPI, dyspnea on exertion. Absent: chest pain, leg edema, lightheadedness, orthopnea, palpitations Respiratory: Present: as per HPI, cough, dyspnea on exertion. Absent: hemoptysis Gastrointestinal: Present: as per HPI. Absent: abdominal pain, diarrhea, hematochezia, melena, nausea, vomiting Genitourinary: Absent: dysuria Musculoskeletal: Present: muscle weakness Integumentary: Absent: wounds Neurological: Present: as per HPI. Absent: focal weakness, headache(s) Psychiatric: Present: as per HPI Endocrine: Present: as per HPI, fatigue Hematologic/Lymphatic: Present: as per HPI. Absent: easy bleeding, lymphadenopathy Oncology - Exam - Constitutional General appearance: cooperative, no acute distress, thin, no febrile - Head Head exam: Present: atraumatic - ENT ENT exam: Present: mucous membranes moist, normal oropharynx - Respiratory Respiratory exam: Present: decreased breath sounds, CTAB. Absent: respiratory distress - Cardiovascular Cardiovascular exam: Present: RRR - GI/Abdominal GI/Abdominal exam: Present: normal bowel sounds, soft. Absent: tenderness - Extremities Exam Extremities exam: Present: normal inspection. Absent: calf tenderness - Neurological Exam Neurological exam: Present: alert, oriented X3, no focal deficits, strengths equal and symetr throughout - Psychiatric Psychiatric exam: Present: normal affect, normal mood - Skin Additional comments: healing vesicular rash following linear pattern/dermatome to right upper posterior chest Consult Discharge Plan - Plan Referrals: [place],PCP [Primary Care Provider] - Inpatient Charges [facility] Hess [facility] Last Filed: 04/04/19 17:29> Date of Encounter: 04/04/19 - Data of Consult Requesting Physician: Jluis Gonzalez MD [facility] Provider[facility] In[facility] Charges Provider: Dr. Bren Hess Consult - Inpatient: [id number] - Attending Attestation I examined this patient and my medical decision-making was reviewed with the Advanced Practice Nurse. I agree with the documented findings, disposition and treatment plan as described except to the extent set forth below. Pain improving on current regimen He has Neurontin and Lidocaine patch ordered as well Recommend palliative care c/s as well to assist with pain management We will sign off at this time, please call us with further questions
--- NOTE | 2019-04-04 15:41 | Internal Med Progress Note ---
Hospitalist Progress Note - Encounter Date of Encounter: 04/04/19 Time of Encounter: 15:39 - Subjective Interval History: I have seen and evaluated the patient at bedside. he continues to report pain at the site where he had shingles. denies nausea, vomiting or abdominal pain. - Exam Vitals: Temp Pulse Resp BP Pulse Ox 98.1 F 110 18 152/88 95 04/04/19 11:23 04/04/19 11:23 04/04/19 11:23 04/04/19 11:23 04/04/19 11:23 Exam: Vitals: Reviewed General: Cachectic looking, Alert and oriented x4. In mild distress due to pain Cardiovascular: RRR, normal S1 & S2, no rubs, murmurs or gallops. Lungs: CTA b/l, no wheezes or crackles. Abdomen: Soft, non-tender, no rigidity. Extremities: No deformity, no edema or tenderness, no joint swelling or clubbing. Neurological: Normal cognition and motor skills. Rest of the physical exam is non contributory - Assessment and Plan (1) Post herpetic neuralgia Current Visit: Yes Status: Acute (2) Lung cancer Current Visit: Yes Status: Chronic (3) COPD (chronic obstructive pulmonary disease) Current Visit: No Status: Chronic (4) Hypertension Current Visit: No Status: Chronic (5) Tobacco abuse Current Visit: No Status: Chronic - Summary of Assessment and Plan Summary of Assessment and Plan: 69 year old male past medical history of lung cancer, hypertension, COPD, tobacco abuse, GERD. who presented from home due to pain on the anterior part of his chest where he had shingles about a week ago. Assessment: 1. Post herpetic neuralgia 2. COPD 3. Severe caloric malnutrition 4. Lung cancer 5. Hypertension 6. VTE prophylaxis Plan - patient continues to reports pain on a dermatomal distribution where he had shingles. - lidocaine patch added - Increase Gabapentin to 400mg/PO TID - On prednisone 40mg/PO daily - OXycodone - Oncology recommendations appreciated - continue bronchodilators. on symbicort - DC IV fluids. encourage oral intake - patient requested an appetite stimulant. megace added - on lovenox subq for dvt prophylaxis Disposition: - Patient to remain in the hospital due to uncontrolled post herpetic neuralgia pain - Time Spent with Patient Total time spent is greater than 50% in coordination of care (as documented) at patient's floor/unit and/or counseling patient: Greater than 35 minutes (45) Plan of Care Discussed with: patient (and the nurse) Internal Medicine: Result - Labs CBC & Chem 7: 04/04/19 04:16 04/04/19 04:16 Labs: Short CBC 04/04/19 Range/Units 04:16 WBC 3.4 L (4.3-11.1) K/mcL Hgb 10.8 L (12.9-16.9) g/dL Hct 31.8 L (37.5-50.1) % Plt Count 162 (140-400) K/mcL Neutrophils # 2.7 (1.6-8.9) K/mcL BMP 04/04/19 04:16 Sodium 131 L Potassium 3.3 L Chloride 93 L Carbon Dioxide 30 H BUN 4 L Creatinine 0.22 L Glucose 80 Calcium 7.4 L - ABG Interpretation ABG results: ABG ABG pH 7.32 pH Units (7.32-7.45) 04/03/19 08:23 ABG pCO2 64 mmHg (35-45) H 04/03/19 08:23 ABG pO2 104 mmHg (85-104) 04/03/19 08:23 ABG O2 Saturation 97 % (95-98) 04/03/19 08:23 Consult Discharge Plan - Plan [facility]errals: [facility] [Primary Care Provider[facility] - _ (2) Lung cancer Qualifiers: Laterality: unspecified laterality Lung location: unspecified part of lung Qualified Code(s): C34.90 - Malignant neoplasm of unspecified part of unspecified bronchus or lung (3) COPD (chronic obstructive pulmonary disease) Qualifiers: Emphysema type: unspecified Qualified Code(s): J43.9 - Emphysema, unspecified (4) Hypertension Qualifiers: Hypertension type: essential hypertension Qualified Code(s): I10 - Essential (primary) hypertension
[2019-04-04] MEDS: Ipratropium Neb 0.5 MG NEBULIZER IH PRN (18:53)
[2019-04-04] MEDS: Gabapentin 400 MG CAPSULE PO SCH (20:44)
[2019-04-05] MEDS: Morphine Sulfate ER (12 HR) 15 MG TABLET.ER PO SCH ×3 (00:42→16:14)
[2019-04-05] MEDS: Ipratropium Neb 0.5 MG NEBULIZER IH PRN ×3 (03:40→21:26)
[2019-04-05] MEDS: *HR* OxyCODONE Immed Rel 15 MG TABLET PO PRN ×3 (03:47→18:11)
[2019-04-05 04:40] LABS: Hematocrit 30.7 % (37.5-50.1); Hemoglobin 10.6 g/dL (12.9-16.9); Mean Corpuscular HGB Conc 34.5 g/dL (31.6-35.5); Mean Corpuscular Hemoglobin 37.3 pg (28.0-33.3); Mean Corpuscular Volume 108.1 fL (83.0-100.0); Mean Platelet Volume 10.3 fL (9.4-12.4); Platelet Count 158 K/mcL (140-400); Red Blood Count 2.84 M/mcL (4.19-5.50); Red Cell Distribution Width 19.1 % (11.5-14.5); White Blood Count 4.3 K/mcL (4.3-11.1)
[2019-04-05 04:52] LABS: BUN/Creatinine Ratio 22 (6-26); Blood Urea Nitrogen 6 mg/dL (8-23); Calcium 7.8 mg/dL (8.6-10.3); Carbon Dioxide 34 mEq/L (23-29); Chloride 92 mEq/L (98-107); Glucose 114 mg/dL (70-105); Magnesium 1.5 mg/dL (1.6-2.6); Osmolality,Calculated 268 (280-300); Phosphorous 1.2 mg/dL (2.7-4.5); Potassium 3.8 mEq/L (3.5-5.1); Sodium 130 mEq/L (136-145); eGFR For African Americans > 60 (> 60); eGFR For Non-African Americans > 60 (> 60)
[2019-04-05 04:53] LABS: % Iron Saturation 13 % (20-55); Iron 24 mcg/dL (65-175); Lactate Dehydrogenase 146 Units/L (140-271); Transferrin 133 mg/dL (203-362)
[2019-04-05 05:12] LABS: Ferritin 42 ng/mL (20-250)
[2019-04-05 05:16] LABS: Anisocytosis 1+ (Not Present); Folate 5.3 ng/mL (3.0-16.0); Lymphocytes # 0.5 K/mcL (0.6-4.6); Monocytes # 0.6 K/mcL (0.0-1.3); Neutrophils # 3.2 K/mcL (1.6-8.9)
[2019-04-05 05:17] LABS: Hypochromasia Present (Not Present); Macrocytosis Present (Not Present); Microcytosis Present (Not Present); Target Cells 1+ (Not Present)
[2019-04-05 05:18] LABS: Ovalocytes 1+ (Not Present); Poikilocytosis 1+ (Not Present); Tear Drop Cells 1+ (Not Present)
[2019-04-05 05:19] LABS: Platelet Estimate Normal (Normal)
[2019-04-05] MEDS: *HR* Enoxaparin 40 MG/0.4 ML SYRINGE SQ SCH (06:18)
[2019-04-05] MEDS: predniSONE 20 MG TABLET PO SCH (08:44)
[2019-04-05] MEDS: Gabapentin 400 MG CAPSULE PO SCH ×3 (08:45→20:13)
[2019-04-05] MEDS: Levalbuterol Neb 0.63 MG/3 ML IH SCH ×2 (09:33→21:26)
[2019-04-05] MEDS: Budesonide/Formoterol 160/4.5 1 PUFF INH IH SCH ×2 (09:33→21:26)
--- NOTE | 2019-04-05 12:20 | Internal Med Progress Note ---
Hospitalist Progress Note - Encounter Date of Encounter: 04/05/19 Time of Encounter: 12:16 - Subjective Interval History: I have seen and evaluated the patient at bedside. He reports the pain is better controlled today. denies chest pain, shortness of breath, nausea or vomiting. - Exam Vitals: Temp Pulse Resp BP Pulse Ox 97.6 F 99 20 160/87 98 04/05/19 11:29 04/05/19 11:29 04/05/19 11:29 04/05/19 11:29 04/05/19 11:29 Exam: Vitals: Reviewed General: Cachectic looking, Alert and oriented x4. In mild distress due to pain but improved when compared with yesterday Cardiovascular: RRR, normal S1 & S2, no rubs, murmurs or gallops. Lungs: mild scattered b/l wheezes, no rales or crackles. Abdomen: Soft, non-tender, no rigidity. Extremities: No edema Neurological: No focal neurological abnormalities Rest of the physical exam is non contributory - Assessment and Plan (1) Post herpetic neuralgia Current Visit: Yes Status: Acute (2) Lung cancer Current Visit: Yes Status: Chronic (3) COPD (chronic obstructive pulmonary disease) Current Visit: No Status: Chronic (4) Hypertension Current Visit: No Status: Chronic (5) Tobacco abuse Current Visit: No Status: Chronic - Summary of Assessment and Plan Summary of Assessment and Plan: 69 year old male past medical history of lung cancer, hypertension, COPD, tobacco abuse, GERD. who presented from home due to pain on the anterior part of his chest where he had shingles about a week ago. Assessment: 1. Post herpetic neuralgia 2. COPD 3. Severe caloric malnutrition 4. Lung cancer 5. Hypertension 6. VTE prophylaxis Plan - Pain better controlled today. c/w Gabapentin to 400mg/PO TID, lidocaine patch, prednisone 40mg/PO daily, OXycodone 15mg/PO Q6HRs PRN and morphine 15mg/PO Q8HRs scheduled. - Oncology recommendations appreciated - On bronchodilators. on symbicort - c/w Megace added - on lovenox subq for dvt prophylaxis Disposition: - Patient to remain in the hospital to optimize pain control before discharge. - Time Spent with Patient Total time spent is greater than 50% in coordination of care (as documented) at patient's floor/unit and/or counseling patient: Greater than 35 minutes (45) Plan of Care Discussed with: patient (and the nurse) Internal Medicine: Result - Labs CBC & Chem 7: 04/05/19 04:13 04/05/19 04:13 Labs: Short CBC 04/05/19 Range/Units 04:13 WBC 4.3 (4.3-11.1) K/mcL Hgb 10.6 L (12.9-16.9) g/dL Hct 30.7 L (37.5-50.1) % Plt Count 158 (140-400) K/mcL Neutrophils # 3.2 (1.6-8.9) K/mcL BMP 04/05/19 04:13 Sodium 130 L Potassium 3.8 Chloride 92 L Carbon Dioxide 34 H BUN 6 L Creatinine 0.27 L Glucose 114 H Calcium 7.8 L - ABG Interpretation ABG results: ABG ABG pH 7.32 pH Units (7.32-7.45) 04/03/19 08:23 ABG pCO2 64 mmHg (35-45) H 04/03/19 08:23 ABG pO2 104 mmHg (85-104) 04/03/19 08:23 ABG O2 Saturation 97 % (95-98) 04/03/19 08:23 Consult Discharge Plan - Plan Referrals: [facility] [Outside] (2) Lung cancer Qualifiers: Laterality: unspecified laterality Lung location: unspecified part of lung Qualified Code(s): C34.90 - Malignant neoplasm of unspecified part of unspecified bronchus or lung (3) COPD (chronic obstructive pulmonary disease) Qualifiers: Emphysema type: unspecified Qualified Code(s): J43.9 - Emphysema, unspecified (4) Hypertension Qualifiers: Hypertension type: essential hypertension Qualified Code(s): I10 - Essential (primary) hypertension
[2019-04-05] MEDS: Nicotine 21 MG PATCH.TD24 TD SCH (23:01)
[2019-04-06] MEDS: Morphine Sulfate ER (12 HR) 15 MG TABLET.ER PO SCH ×2 (00:05→08:45)
[2019-04-06] MEDS: *HR* OxyCODONE Immed Rel 15 MG TABLET PO PRN ×2 (01:13→10:24)
[2019-04-06] MEDS: Ipratropium Neb 0.5 MG NEBULIZER IH PRN (04:24)
[2019-04-06] MEDS: *HR* Enoxaparin 40 MG/0.4 ML SYRINGE SQ SCH (05:53)
[2019-04-06] MEDS: Gabapentin 400 MG CAPSULE PO SCH (08:45)
[2019-04-06] MEDS: predniSONE 20 MG TABLET PO SCH (08:46)
[2019-04-06] MEDS: Nicotine 21 MG PATCH.TD24 TD SCH (08:46)
[2019-04-06] MEDS ORDERED: Aspirin Enteric Coated 81 MG Tablet PO SCH (09:00)
[2019-04-06] MEDS: Budesonide/Formoterol 160/4.5 1 PUFF INH IH SCH (10:01)
[2019-04-06] MEDS: Levalbuterol Neb 0.63 MG/3 ML IH SCH (10:02)
--- NOTE | 2019-04-06 10:03 | Discharge Summary ---
- NOTES TO OUTPATIENT PROVIDER Notes to Outpatient Provider: Follow up with oncology as outpatient. Follow-up with GI for outpatient workup of iron deficiency anemia. Date of Encounter: 04/06/19 Time of Encounter: 07:15 - Discharge Diagnosis (1) Lung cancer Priority: Secondary Status: Chronic Qualifiers: Laterality: unspecified laterality Lung location: unspecified part of lung Qualified Code(s): C34.90 - Malignant neoplasm of unspecified part of unspecified bronchus or lung (2) Hypertension Priority: Secondary Status: Chronic Qualifiers: Hypertension type: essential hypertension Qualified Code(s): I10 - Essential (primary) hypertension (3) COPD (chronic obstructive pulmonary disease) Priority: Secondary Status: Chronic Qualifiers: Emphysema type: unspecified Qualified Code(s): J43.9 - Emphysema, unspecified (4) Tobacco abuse Priority: Secondary Status: Chronic (5) Post herpetic neuralgia Priority: Primary Status: Acute Hospital course: Mr. Arevalo is a 69 year old male with history of squamous cell lung cancer status post chemoradiation, hypertension, COPD, recently admitted for shingles and COPD exacerbation, was admitted to the hospital for post-herpetic neuralgia. Neurontin was uptitrated to 600mg TID with reasonable response. Patient is also noted to have iron deficiency anemia with stable hemoglobin count and also had negative colonoscopy in 02/2018. In addition to increased dose of gabapentin, pt will also be discharged on ferrous sulfate and metoprolol for p oorly controlled hypertension. Discharge discussed with: patient, nurse, social work - Time Spent with Patient Total time spent providing and/or coordinating discharge services: 32 mins - Discharge Medications Prescriptions: New Ferrous Sulfate 325 mg PO BIDWM 30 Days #60 tablet Gabapentin 600 mg PO TID 30 Days #90 tablet Lidocaine Patch [Lidoderm 5% patch] 1 each TP DAILY 21 Days #21 adh..patch Metoprolol [Lopressor] 12.5 mg PO BID #30 tablet Continued Prochlorperazine Maleate [Compazine] 10 mg PO Q6HR PRN #90 tablet PRN Reason: Nausea Budesonide/Formoterol 160/4.5 [Symbicort 160/4.5] 2 puff IH BIDR Tiotropium [facility] [Spiriva Respimat] 2 puff IH DAILY Albuterol Neb [Proventil Neb] 2.5 mg IH Q6H PRN PRN Reason: BREATHING Albuterol Sulfate [Proventil Inhaler] 2 puff PO Q4H PRN PRN Reason: Shortness Of Breath Lisinopril [Zestril] 10 mg PO DAILY Sucralfate [Carafate] 1 gm PO QIDAC PRN tablet PRN Reason: Heartburn Alendronate Sodium 70 mg PO FR Aspirin Enteric Coated [Aspirin EC] 81 mg PO DAILY Calcium Carbonate 650 mg PO BID Cholecalciferol (D-3) [Vitamin D] 2,000 unit PO DAILY Ondansetron HCl 8 mg PO Q8H PRN PRN Reason: NAUSEA/VOMITING Pantoprazole Sodium [Protonix] 40 mg PO DAILY Tamsulosin HCl [Flomax] 0.4 mg PO HS Varenicline [Chantix] 1 mg PO BID Morphine Sulfate ER (12 HR) [MS Contin] 1 tab PO Q8HR 7 Days #21 tab Oxycodone HCl [Roxybond] 5 - 15 mg PO Q6H PRN 5 Days #30 tablet.orl PRN Reason: Breakthrough Pain Home Medications: Prochlorperazine Maleate [Compazine] 10 mg PO Q6HR PRN #90 tablet 11/25/18 [Rx] Albuterol Neb [Proventil Neb] 2.5 mg IH Q6H PRN 12/23/18 [History] Albuterol Sulfate [Proventil Inhaler] 2 puff PO Q4H PRN 12/23/18 [History] Budesonide/Formoterol 160/4.5 [Symbicort 160/4.5] 2 puff IH BIDR 12/23/18 [History] Tiotropium [facility] [Spiriva Respimat] 2 puff IH DAILY 12/23/18 [History] Lisinopril [Zestril] 10 mg PO DAILY 02/23/19 [History] Sucralfate [Carafate] 1 gm PO QIDAC PRN tablet 03/12/19 [Rx] Alendronate Sodium 70 mg PO FR 04/04/19 [History] Aspirin Enteric Coated [Aspirin EC] 81 mg PO DAILY 04/04/19 [History] Calcium Carbonate 650 mg PO BID 04/04/19 [History] Cholecalciferol (D-3) [Vitamin D] 2,000 unit PO DAILY 04/04/19 [History] Ondansetron HCl 8 mg PO Q8H PRN 04/04/19 [History] Pantoprazole Sodium [Protonix] 40 mg PO DAILY 04/04/19 [History] Tamsulosin HCl [Flomax] 0.4 mg PO HS 04/04/19 [History] Varenicline [Chantix] 1 mg PO BID 04/04/19 [History] Ferrous Sulfate 325 mg PO BIDWM 30 Days #60 tablet 04/06/19 [Rx] Gabapentin 600 mg PO TID 30 Days #90 tablet 04/06/19 [Rx] Lidocaine Patch [Lidoderm 5% patch] 1 each TP DAILY 21 Days #21 adh..patch 04/06/19 [Rx] Metoprolol [Lopressor] 12.5 mg PO BID #30 tablet 04/06/19 [Rx] Morphine Sulfate ER (12 HR) [MS Contin] 1 tab PO Q8HR 7 Days #21 tab 04/06/19 [Rx] Oxycodone HCl [Roxybond] 5 - 15 mg PO Q6H PRN 5 Days #30 tablet.orl 04/06/19 [Rx] Allergies/Adverse Reactions: Allergy/AdvReac Type Severity Reaction Status Date / Time codeine Allergy Anaphylaxis Verified 03/10/19 20:24 fentanyl AdvReac Hallucinati Verified 03/10/19 20:24 ng Date of admission: 04/03/19 08:42 [facility] Consults: 04/03/19 09:58 Consult to Nutrition [CONS] Routine Comment: losing weight Consulting Provider: NUTRITION Reason for Dietary Consult: Other 04/03/19 14:38 Consult to Oncology Hematology [CONS] Routine Consulting Provider: Farida Parsons Reason for Consult: pt of Dr Kaur, lung ca, admitted with failure to thrive and uncontrolled post herpetic neuralgia pain, opiates rx by onc, please eval for further treatment, thank you Call Completed: No 04/04/19 11:59 Consult to Occupational Therapy [CONS] Routine Comment: Evaluate, develop and implement POC Reason for Consult: Assess and treat for weakness Does patient have active BEDREST order?: No Is patient medically & hemodynamically stable?: Yes Consult to Physical Therapy [CONS] Routine Comment: Evaluate, develop and implement POC Reason for Consult: Assess and treat weakness Does patient have active BEDREST order?: No Is patient medically & hemodynamically stable?: Yes Consult to Paint Roller Cover Machine Setter [CONS] Routine Reason for SW Consult: Discharge planning. - Constitutional Vitals: Temp Pulse Resp BP Pulse Ox 98.5 F 96 16 144/86 97 04/06/19 06:37 04/06/19 06:37 04/06/19 06:37 04/06/19 06:37 04/06/19 06:37 Exam: Vitals: Reviewed General: Cachectic looking, Alert and oriented x4. not in distress Cardiovascular: RRR, normal S1 & S2, no rubs, murmurs or gallops. Lungs: mild scattered b/l wheezes, no rales or crackles. Abdomen: Soft, non-tender, no rigidity. Skin: healing scabs on R lower rib cage without any blisters. Tender to touch Neurological: No focal neurological abnormalities - Patient Status Disposition: Home Health Service Condition: Good Overall status at discharge: patient is progressing back to baseline - Discharge Instructions Instructions: Chronic Obstructive Pulmonary Disease (DC), Chronic Hypertension (DC) Follow Up With: [facility] [Outside] - Diet and Activity Activity: as per physical therapy Diet: regular diet
--- NOTE | 2019-04-06 10:09 | Physician Discharge Referral ---
Home Health/Hosp Referral Info Transfer to: Home Health Provider in Charge Post Discharge: PCP - Diagnosis (1) Lung cancer Priority: Secondary Status: Chronic (2) Hypertension Priority: Secondary Status: Chronic (3) COPD (chronic obstructive pulmonary disease) Priority: Secondary Status: Chronic (4) Tobacco abuse Priority: Secondary Status: Chronic (5) Post herpetic neuralgia Priority: Primary Status: Acute - Respiratory Orders Smoking Cessation: Smoking cessation has been advised. For more information, call the [place] Tobacco Quit Line at 0-679-IAPV-NOW. - Services Needed Following services are medically necessary services: Nursing, Home Health Aide, Physical Therapy, Occupational Therapy - Transfer Medications Prescriptions: Ferrous Sulfate 325 mg PO BIDWM 30 Days #60 tablet Gabapentin 600 mg PO TID 30 Days #90 tablet Lidocaine Patch [Lidoderm 5% patch] 1 each TP DAILY 21 Days #21 adh..patch Metoprolol [Lopressor] 12.5 mg PO BID #30 tablet Morphine Sulfate ER (12 HR) [MS Contin] 1 tab PO Q8HR 7 Days #21 tab Oxycodone HCl [Roxybond] 5 - 15 mg PO Q6H PRN 5 Days #30 tablet.orl PRN Reason: Breakthrough Pain Home Medications: Prochlorperazine Maleate [Compazine] 10 mg PO Q6HR PRN #90 tablet 11/25/18 [Rx] Albuterol Neb [Proventil Neb] 2.5 mg IH Q6H PRN 12/23/18 [History] Albuterol Sulfate [Proventil Inhaler] 2 puff PO Q4H PRN 12/23/18 [History] Budesonide/Formoterol 160/4.5 [Symbicort 160/4.5] 2 puff IH BIDR 12/23/18 [History] Tiotropium [place] [Spiriva Respimat] 2 puff IH DAILY 12/23/18 [History] Lisinopril [Zestril] 10 mg PO DAILY 02/23/19 [History] Sucralfate [Carafate] 1 gm PO QIDAC PRN tablet 03/12/19 [Rx] Alendronate Sodium 70 mg PO FR 04/04/19 [History] Aspirin Enteric Coated [Aspirin EC] 81 mg PO DAILY 04/04/19 [History] Calcium Carbonate 650 mg PO BID 04/04/19 [History] Cholecalciferol (D-3) [Vitamin D] 2,000 unit PO DAILY 04/04/19 [History] Ondansetron HCl 8 mg PO Q8H PRN 04/04/19 [History] Pantoprazole Sodium [Protonix] 40 mg PO DAILY 04/04/19 [History] Tamsulosin HCl [Flomax] 0.4 mg PO HS 04/04/19 [History] Varenicline [Chantix] 1 mg PO BID 04/04/19 [History] Ferrous Sulfate 325 mg PO BIDWM 30 Days #60 tablet 04/06/19 [Rx] Gabapentin 600 mg PO TID 30 Days #90 tablet 04/06/19 [Rx] Lidocaine Patch [Lidoderm 5% patch] 1 each TP DAILY 21 Days #21 adh..patch 04/06/19 [Rx] Metoprolol [Lopressor] 12.5 mg PO BID #30 tablet 04/06/19 [Rx] Morphine Sulfate ER (12 HR) [MS Contin] 1 tab PO Q8HR 7 Days #21 tab 04/06/19 [Rx] Oxycodone HCl [Roxybond] 5 - 15 mg PO Q6H PRN 5 Days #30 tablet.orl 04/06/19 [Rx] Allergies/Adverse Reactions: Allergy/AdvReac Type Severity Reaction Status Date / Time codeine Allergy Anaphylaxis Verified 03/10/19 20:24 fentanyl AdvReac Hallucinati Verified 03/10/19 20:24 ng Certification: Further, I certify that my clinical findings support that this patient is homebound (i.e. absences from home require considerable and taxing effort and are for medical reasons or quaker services or infrequently or short duration when for other reasons) because: Homebound Reason: Patient requires assistance of a person or device to safely leave home Attestation: My signature below is to certify that this patient is under my care and that I, or nurse practitioner, or a physician's car rental sales assistant working with me, has a [id number] encounter with this patient.
[2019-04-06 11:34] VITALS: BP 117/68
== END 2019-04-06 13:13 | disposition home or self-care (01) ==
LOC: EMEROOARM 04:20 → 3ANU 04:20 → SUATTDRO 08:42 → 3ANU 09:44
PROVIDERS: ADMIT Internal Medicine; ATTEND Internal Medicine

== ENCOUNTER 2019-04-27 02:51 | Inpatient (IN) ==
[2019-04-27] MEDS ORDERED: Ipratropium/Albuterol Neb 3 ML IH ONE (03:13)
[2019-04-27] MEDS ORDERED: Isovue-370 500 ML BOTTLE IVP ONE ×2 (03:14→06:02)
[2019-04-27] MEDS ORDERED: methylPREDNISolone 125 MG/2 ML VIAL IVP ONE (03:14)
--- NOTE | 2019-04-27 03:19 | Emergency Department Note ---
Disposition Clinical Impression: Pneumonia Qualifiers: Pneumonia type: due to unspecified organism Laterality: unspecified laterality Lung location: unspecified part of lung Qualified Code(s): J18.9 - Pneumonia, unspecified organism Disposition: Still a Patient Condition: Fair [facility]Primary Care Provider[facility] - Forms: ED Satisfaction Letter Time of Disposition: 06:25 SOB HPI - General Chief Complaint: ED Shortness of Breath/Dyspnea Stated Complaint: Felipe (lung cancer) Time Seen by Provider: 04/27/19 02:55 Source: patient Mode of arrival: ambulatory Limitations: no limitations Nursing Notes Reviewed: Yes Vital Signs Reviewed: Yes - History of Present Illness 69-year-old male with history of lung cancer presents with shortness of breath. Patient stated he was discharged from [facility] yesterday. He was supposed to be discharged to [facility]. But he was sent home instead. Patient felt shortness of breath again this afternoon even with home oxygen. Patient denied chills and fever. Pt Subjective Complaint: shortness of breath Onset (ago): day(s) (1) - Related Data Home Medications Medication Instructions Recorded Confirmed Albuterol Neb [Proventil Neb] 2.5 mg IH Q6H PRN 12/23/18 04/04/19 Albuterol Sulfate [Proventil 2 puff PO Q4H PRN 12/23/18 04/04/19 Inhaler] Budesonide/Formoterol 160/4.5 2 puff IH BIDR 12/23/18 04/04/19 [Symbicort 160/4.5] Tiotropium [place] [Spiriva 2 puff IH DAILY 12/23/18 04/04/19 Respimat] Lisinopril [Zestril] 10 mg PO DAILY 02/23/19 04/04/19 Alendronate Sodium 70 mg PO FR 04/04/19 04/04/19 Aspirin Enteric Coated [Aspirin EC] 81 mg PO DAILY 04/04/19 04/04/19 Calcium Carbonate 650 mg PO BID 04/04/19 04/04/19 Cholecalciferol (D-3) [Vitamin D] 2,000 unit PO DAILY 04/04/19 04/04/19 Ondansetron HCl 8 mg PO Q8H PRN 04/04/19 04/04/19 Pantoprazole Sodium [Protonix] 40 mg PO DAILY 04/04/19 04/04/19 Tamsulosin HCl [Flomax] 0.4 mg PO HS 04/04/19 04/04/19 Varenicline [Chantix] 1 mg PO BID 04/04/19 04/04/19 Previous Rx's Medication Instructions Recorded Prochlorperazine Maleate 10 mg PO Q6HR PRN #90 tablet 11/25/18 [Compazine] Sucralfate [Carafate] 1 gm PO QIDAC PRN tablet 03/12/19 Ferrous Sulfate 325 mg PO BIDWM 30 Days #60 tablet 04/06/19 Gabapentin 600 mg PO TID 30 Days #90 tablet 04/06/19 Lidocaine Patch [Lidoderm 5% patch] 1 each TP DAILY 21 Days #21 04/06/19 adh..patch Metoprolol [Lopressor] 12.5 mg PO BID #30 tablet 04/06/19 Morphine Sulfate ER (12 HR) [MS 1 tab PO Q8HR 7 Days #21 tab 04/06/19 Contin] Oxycodone HCl [Roxybond] 5 - 15 mg PO Q6H PRN 5 Days #30 04/06/19 tablet.orl Allergies Allergy/AdvReac Type Severity Reaction Status Date / Time codeine Allergy Anaphylaxis Verified 03/10/19 20:24 fentanyl AdvReac Hallucinati Verified 03/10/19 20:24 ng Constitutional: Denies: fever, chills Eyes: Denies: eye pain ENT ED: Denies: ear pain Cardiovascular: Denies: chest pain Respiratory: Reports: dyspnea. Denies: cough Gastrointestinal: Denies: abdominal pain Genitourinary: Denies: urgency Musculoskeletal: Denies: back pain Integumentary: Denies: rash Neurological: Denies: headache Psychiatric: Denies: anxiety Endocrine: Denies: fatigue Hematological/Lymphatic: Denies: easy bleeding Allergic/Immunologic: Denies: facial swelling Past Medical History - Past Medical History Medical history: Reports: cancer, COPD, hypertension Psychiatric history: Reports: no psych history - Social History Smoking Status: Current some day smoker Smokeless Tobacco Status: No Alcohol use: Reports: occasionally Drug use: Reports: none Physical Exam - General Limitations: no limitations General appearance: alert - Head Head exam: atraumatic - Eye Eye exam: Present: normal appearance - ENT ENT exam: normal exam - Neck Neck exam: Present: normal inspection - Chest Chest inspection: Present: normal inspection - Respiratory Respiratory exam: Present: wheezes. Absent: respiratory distress - Cardiovascular Cardiovascular exam: Present: regular rate - Abdominal Exam Abdominal exam: Present: soft, Non-Tender - Extremities Exam Extremities exam: Present: normal inspection, full ROM. Absent: tenderness - Back Exam Back exam: Present: normal inspection, full ROM. Absent: tenderness - Neurological Exam Neurological exam: Present: alert, oriented X3 - Psychiatric Psychiatric exam: Present: normal affect - Skin Skin exam: Present: warm, intact Course Vital Signs Temperature 98.5 F 04/27/19 02:56 Pulse Rate 110 04/27/19 02:56 Respiratory Rate 20 04/27/19 02:56 Blood Pressure 163/86 04/27/19 02:56 O2 Sat by Pulse Oximetry 100 04/27/19 02:56 Temperature 98.5 F 04/27/19 02:56 Pulse Rate 103 04/27/19 05:00 Respiratory Rate 22 04/27/19 05:00 Blood Pressure 122/99 04/27/19 05:00 O2 Sat by Pulse Oximetry 100 04/27/19 05:00 Oxygen Delivery Oxygen Delivery Nasal Cannula Shortness of Breath/Dyspnea - [facility] Narrative Medical decision making narrative: 69-year-old male with a history of lung cancer presents with shortness breath s roel this afternoon. [facility] pt reported shortness of breath with home oxygen. No chills and fever. Physical exam: tachycardia, bilateral lungs are wheezing. Labs: white cell 12. Potassium 2.4, co2 40. Potasium supplement given. CTA : no PE, multifocal pneumonia, suspected acute pancreatitis. Lipase added. Abdomen CT with contrast pending. Vancomycin and Zosyn started in ER. Transfer care to [facility] due to shift change. Patient will be admitted to hospital. - Lab Data Lab results reviewed: Yes I reviewed the patient's lab results. Result diagrams: 04/27/19 03:35 04/27/19 03:35 Lab Results 04/27/19 04/27/19 04/27/19 Range/Units 03:35 03:35 03:35 WBC 12.7 H (4.3-11.1) K/mcL RBC 2.89 L (4.19-5.50) M/mcL Hgb 10.5 L (12.9-16.9) g/dL Hct 29.8 L (37.5-50.1) % MCV 103.1 H (83.0-100.0) fL MCH 36.3 H (28.0-33.3) pg MCHC 35.2 (31.6-35.5) g/dL RDW 15.9 H (11.5-14.5) % Plt Count 230 (140-400) K/mcL MPV 9.7 (9.4-12.4) fL Immature Gran % 1.6 (0-4) % Seg Neutrophils % 86.8 % Lymphocytes % 0.8 % Monocytes % 10.6 % Eosinophils % 0.0 % Basophils % 0.2 % Neutrophils # 11.0 H (1.6-8.9) K/mcL Lymphocytes # 0.1 L (0.6-4.6) K/mcL Monocytes # 1.4 H (0.0-1.3) K/mcL Eosinophils # 0.0 (0.0-0.6) K/mcL Basophils # 0.0 (0.0-0.2) K/mcL Platelet Estimate Normal (Normal) Target Cells 1+ A (Not Present) Sodium 133 L (136-145) mEq/L Potassium 2.4 L* (3.5-5.1) mEq/L Chloride 87 L (98-107) mEq/L Carbon Dioxide 40 H* (23-29) mEq/L BUN 10 (8-23) mg/dL Creatinine 0.32 L (0.70-1.30) mg/dL Est GFR ( Amer) > 60 (> 60) Est GFR (Non-Af Amer) > 60 (> 60) BUN/Creatinine Ratio 31 H (6-26) Glucose 100 (70-105) mg/dL Calculated Osmolality 275 L (280-300) Calcium 8.7 (8.6-10.3) mg/dL Total Bilirubin 0.4 (0.3-1.0) mg/dL AST 21 (13-39) Units/L ALT 25 (7-52) Units/L Alkaline Phosphatase 71 (34-104) Units/L Troponin I 0.03 (< 0.04) ng/mL B-Natriuretic Peptide (Less than 100) pg/mL Serum Total Protein 5.4 L (6.4-8.9) g/dL Albumin 3.6 (3.5-5.7) g/dL Globulin 1.8 L (2.4-3.5) g/dL Albumin/Globulin Ratio 2.0 (1.1-2.2) 04/27/19 Range/Units 03:35 WBC (4.3-11.1) K/mcL RBC (4.19-5.50) M/mcL Hgb (12.9-16.9) g/dL Hct (37.5-50.1) % MCV (83.0-100.0) fL MCH (28.0-33.3) pg MCHC (31.6-35.5) g/dL RDW (11.5-14.5) % Plt Count (140-400) K/mcL MPV (9.4-12.4) fL Immature Gran % (0-4) % Seg Neutrophils % % Lymphocytes % % Monocytes % % Eosinophils % % Basophils % % Neutrophils # (1.6-8.9) K/mcL Lymphocytes # (0.6-4.6) K/mcL Monocytes # (0.0-1.3) K/mcL Eosinophils # (0.0-0.6) K/mcL Basophils # (0.0-0.2) K/mcL Platelet Estimate (Normal) Target Cells (Not Present) Sodium (136-145) mEq/L Potassium (3.5-5.1) mEq/L Chloride (98-107) mEq/L Carbon Dioxide (23-29) mEq/L BUN (8-23) mg/dL Creatinine (0.70-1.30) mg/dL Est GFR ( Amer) (> 60) Est GFR (Non-Af Amer) (> 60) BUN/Creatinine Ratio (6-26) Glucose (70-105) mg/dL Calculated Osmolality (280-300) Calcium (8.6-10.3) mg/dL Total Bilirubin (0.3-1.0) mg/dL AST (13-39) Units/L ALT (7-52) Units/L Alkaline Phosphatase (34-104) Units/L Troponin I (< 0.04) ng/mL B-Natriuretic Peptide 408 H (Less than 100) pg/mL Serum Total Protein (6.4-8.9) g/dL Albumin (3.5-5.7) g/dL Globulin (2.4-3.5) g/dL Albumin/Globulin Ratio (1.1-2.2) - Radiology Data Radiology results reviewed: Yes I reviewed the patient's radiology results. CT/CT angio chest IMPRESSION: No acute pulmonary embolism. Emphysematous changes with parenchymal opacities more conspicuous in the right upper lobe compared to the prior exam possibly due to multifocal pneumonia/pneumonitis. Peripancreatic inflammatory changes/fluid new from the prior exam. Please correlate for symptoms of acute pancreatitis. D/ / Nahun Smart / Nahun Smart Interpreting Provider: Nahun Smart
[2019-04-27 04:36] LABS: Basophils % 0.2 %; Hematocrit 29.8 % (37.5-50.1); Hemoglobin 10.5 g/dL (12.9-16.9); Immature Granulocytes % 1.6 % (0-4); Lymphocytes # 0.1 K/mcL (0.6-4.6); Lymphocytes % 0.8 %; Mean Corpuscular HGB Conc 35.2 g/dL (31.6-35.5); Mean Corpuscular Hemoglobin 36.3 pg (28.0-33.3); Mean Corpuscular Volume 103.1 fL (83.0-100.0); Mean Platelet Volume 9.7 fL (9.4-12.4); Monocytes # 1.4 K/mcL (0.0-1.3); Monocytes % 10.6 %; Platelet Count 230 K/mcL (140-400); Red Blood Count 2.89 M/mcL (4.19-5.50); Red Cell Distribution Width 15.9 % (11.5-14.5); Segmented Neutrophils % 86.8 %; White Blood Count 12.7 K/mcL (4.3-11.1)
[2019-04-27 04:52] LABS: Alanine Aminotransferase 25 Units/L (7-52); Albumin 3.6 g/dL (3.5-5.7); Alkaline Phosphatase 71 Units/L (34-104); Aspartate Amino Transferase 21 Units/L (13-39); BUN/Creatinine Ratio 31 (6-26); Bilirubin,Total 0.4 mg/dL (0.3-1.0); Blood Urea Nitrogen 10 mg/dL (8-23); Calcium 8.7 mg/dL (8.6-10.3); Carbon Dioxide 40 mEq/L (23-29); Chloride 87 mEq/L (98-107); Globulin 1.8 g/dL (2.4-3.5); Glucose 100 mg/dL (70-105); Osmolality,Calculated 275 (280-300); Potassium 2.4 mEq/L (3.5-5.1); Sodium 133 mEq/L (136-145); Total Protein 5.4 g/dL (6.4-8.9); eGFR For African Americans > 60 (> 60); eGFR For Non-African Americans > 60 (> 60)
[2019-04-27 04:55] LABS: Platelet Estimate Normal (Normal)
[2019-04-27 04:56] LABS: Target Cells 1+ (Not Present)
[2019-04-27] MEDS ORDERED: Piperacillin/Tazobactam 3.375 GM in 0.9 % Sodium Chloride Mini Bag 100 ML IVPB ONE (06:13)
[2019-04-27] MEDS ORDERED: 0.9 % Sodium Chloride 1,000 ML IVC ONE (06:46)
--- NOTE | 2019-04-27 06:56 | Emergency Department Note ---
Disposition Clinical Impression: Multifocal pneumonia, Hypokalemia Acute pancreatitis Qualifiers: Pancreatitis type: unspecified pancreatitis type Acute pancreatitis complication: unspecified Qualified Code(s): K85.90 - Acute pancreatitis without necrosis or infection, unspecified Disposition: Admitted As Inpatient Condition: Fair [facility] Provider[facility] - Forms: ED Satisfaction Letter Time of Disposition: 07:51 General Adult HPI - General Chief complaint: ED Shortness of Breath/Dyspnea Stated complaint: Felipe (lung cancer) Time Seen by Provider: 04/27/19 02:55 Source: patient Mode of arrival: ambulatory Limitations: no limitations - History of Present Illness Pain Scale: 5 - Related Data Home Medications Medication Instructions Recorded Confirmed Albuterol Neb [Proventil Neb] 2.5 mg IH Q6H PRN 12/23/18 04/04/19 Albuterol Sulfate [Proventil 2 puff PO Q4H PRN 12/23/18 04/04/19 Inhaler] Budesonide/Formoterol 160/4.5 2 puff IH BIDR 12/23/18 04/04/19 [Symbicort 160/4.5] Tiotropium [place] [Spiriva 2 puff IH DAILY 12/23/18 04/04/19 Respimat] Lisinopril [Zestril] 10 mg PO DAILY 02/23/19 04/04/19 Alendronate Sodium 70 mg PO FR 04/04/19 04/04/19 Aspirin Enteric Coated [Aspirin EC] 81 mg PO DAILY 04/04/19 04/04/19 Calcium Carbonate 650 mg PO BID 04/04/19 04/04/19 Cholecalciferol (D-3) [Vitamin D] 2,000 unit PO DAILY 04/04/19 04/04/19 Ondansetron HCl 8 mg PO Q8H PRN 04/04/19 04/04/19 Pantoprazole Sodium [Protonix] 40 mg PO DAILY 04/04/19 04/04/19 Tamsulosin HCl [Flomax] 0.4 mg PO HS 04/04/19 04/04/19 Varenicline [Chantix] 1 mg PO BID 04/04/19 04/04/19 Previous Rx's Medication Instructions Recorded Prochlorperazine Maleate 10 mg PO Q6HR PRN #90 tablet 11/25/18 [Compazine] Sucralfate [Carafate] 1 gm PO QIDAC PRN tablet 03/12/19 Ferrous Sulfate 325 mg PO BIDWM 30 Days #60 tablet 04/06/19 Gabapentin 600 mg PO TID 30 Days #90 tablet 04/06/19 Lidocaine Patch [Lidoderm 5% patch] 1 each TP DAILY 21 Days #21 04/06/19 adh..patch Metoprolol [Lopressor] 12.5 mg PO BID #30 tablet 04/06/19 Morphine Sulfate ER (12 HR) [MS 1 tab PO Q8HR 7 Days #21 tab 04/06/19 Contin] Oxycodone HCl [Roxybond] 5 - 15 mg PO Q6H PRN 5 Days #30 04/06/19 tablet.orl Allergies Allergy/AdvReac Type Severity Reaction Status Date / Time codeine Allergy Anaphylaxis Verified 03/10/19 20:24 fentanyl AdvReac Hallucinati Verified 03/10/19 20:24 ng Constitutional: Denies: fever, chills Eyes: Denies: eye pain ENT ED: Denies: ear pain Cardiovascular: Denies: chest pain Respiratory: Reports: dyspnea. Denies: cough Gastrointestinal: Denies: abdominal pain Genitourinary: Denies: urgency Musculoskeletal: Denies: back pain Integumentary: Denies: rash Neurological: Denies: headache Psychiatric: Denies: anxiety Endocrine: Denies: fatigue Hematological/Lymphatic: Denies: easy bleeding Allergic/Immunologic: Denies: facial swelling Past Medical History - Past Medical History Medical history: Reports: cancer, COPD, hypertension Psychiatric history: Reports: no psych history - Social History Smoking Status: Current some day smoker Smokeless Tobacco Status: No Alcohol use: Reports: occasionally Drug use: Reports: none Physical Exam - General Limitations: no limitations General appearance: alert Course Course Narrative: 0600: I have assumed care of this patient from Jason Lewis PA-C due to mid-level shift change. Please see her documentation for care performed prior to my arrival. Briefly, this is a 69-year-old male with a history of lung cancer that presented with shortness of breath. The patient was just easily discharge from the [facility] yesterday morning. He began to experi ence shortness of breath again yesterday afternoon despite home oxygen. He denied any chills or fever. He denied any cough. At the time my arrival, laboratory workup had been performed which showed a slight elevation in white blood cell count at 12.7 with a predominance of neutrophils and a segmented neutrophil percentage of 86.8%. CTA of the chest was performed and showed concerns for multifocal pneumonia. CTA did also show incidental findings of peripancreatic inflammatory changes/fluid which is new from the prior exam. The patient denied any abdominal pain, nausea, or vomiting. CT of the abdomen and pelvis is pending to further evaluate these incidental findings. Blood cultures have been ordered as well as a lactic acid as the patient was slightly tachycardic upon arrival. He also had a respiratory rate documented at 22 respirations per minute. Vancomycin and Zosyn have been ordered as well. A 1 L normal saline fluid bolus has been ordered. We will forego the 30 mL/kg bolus due to an elevated BNP of 408. I cannot find any history and the patient's chart of any documented diagnosis of CHF however. The patient was also found to be moderately hypokalemic at 2.4. A 40 mEq potassium rider was ordered by the night stocker practitioner as well. Plan is to admit the patient to the hospitalist service for further management of hyperkalemia and CTA findings of multifocal pneumonia. 0750: I spoke with the admitting hospitalist, Dr. Randall. The patient has been accepted for admission to the hospitalist service for further evaluation and management. Vital Signs Temperature 98.5 F 04/27/19 02:56 Pulse Rate 110 04/27/19 02:56 Respiratory Rate 20 04/27/19 02:56 Blood Pressure 163/86 04/27/19 02:56 O2 Sat by Pulse Oximetry 100 04/27/19 02:56 Temperature 98.5 F 04/27/19 02:56 Pulse Rate 103 04/27/19 05:00 Respiratory Rate 22 04/27/19 05:00 Blood Pressure 122/99 04/27/19 05:00 O2 Sat by Pulse Oximetry 100 04/27/19 05:00 Oxygen Delivery Oxygen Delivery Nasal Cannula Medical Decision Making - Medical Records Medical records reviewed: Yes I reviewed the patient's medical records. - Lab Data Lab results reviewed: Yes I reviewed the patient's lab results. Lab results narrative: Lab Results 04/27/19 04/27/19 04/27/19 Range/Units 03:35 03:35 03:35 WBC 12.7 H (4.3-11.1) K/mcL RBC 2.89 L (4.19-5.50) M/mcL Hgb 10.5 L (12.9-16.9) g/dL Hct 29.8 L (37.5-50.1) % MCV 103.1 H (83.0-100.0) fL MCH 36.3 H (28.0-33.3) pg MCHC 35.2 (31.6-35.5) g/dL RDW 15.9 H (11.5-14.5) % Plt Count 230 (140-400) K/mcL MPV 9.7 (9.4-12.4) fL Immature Gran % 1.6 (0-4) % Seg Neutrophils % 86.8 % Lymphocytes % 0.8 % Monocytes % 10.6 % Eosinophils % 0.0 % Basophils % 0.2 % Neutrophils # 11.0 H (1.6-8.9) K/mcL Lymphocytes # 0.1 L (0.6-4.6) K/mcL Monocytes # 1.4 H (0.0-1.3) K/mcL Eosinophils # 0.0 (0.0-0.6) K/mcL Basophils # 0.0 (0.0-0.2) K/mcL Platelet Estimate Normal (Normal) Target Cells 1+ A (Not Present) Sodium 133 L (136-145) mEq/L Potassium 2.4 L* (3.5-5.1) mEq/L Chloride 87 L (98-107) mEq/L Carbon Dioxide 40 H* (23-29) mEq/L BUN 10 (8-23) mg/dL Creatinine 0.32 L (0.70-1.30) mg/dL Est GFR ( Amer) > 60 (> 60) Est GFR (Non-Af Amer) > 60 (> 60) BUN/Creatinine Ratio 31 H (6-26) Glucose 100 (70-105) mg/dL Calculated Osmolality 275 L (280-300) Lactic Acid (0.5-2.2) mmol/L Calcium 8.7 (8.6-10.3) mg/dL Total Bilirubin 0.4 (0.3-1.0) mg/dL AST 21 (13-39) Units/L ALT 25 (7-52) Units/L Alkaline Phosphatase 71 (34-104) Units/L Troponin I 0.03 (< 0.04) ng/mL B-Natriuretic Peptide (Less than 100) pg/mL Serum Total Protein 5.4 L (6.4-8.9) g/dL Albumin 3.6 (3.5-5.7) g/dL Globulin 1.8 L (2.4-3.5) g/dL Albumin/Globulin Ratio 2.0 (1.1-2.2) Lipase (11-82) Units/L 04/27/19 04/27/19 04/27/19 Range/Units 03:35 07:12 07:12 WBC (4.3-11.1) K/mcL RBC (4.19-5.50) M/mcL Hgb (12.9-16.9) g/dL Hct (37.5-50.1) % MCV (83.0-100.0) fL MCH (28.0-33.3) pg MCHC (31.6-35.5) g/dL RDW (11.5-14.5) % Plt Count (140-400) K/mcL MPV (9.4-12.4) fL Immature Gran % (0-4) % Seg Neutrophils % % Lymphocytes % % Monocytes % % Eosinophils % % Basophils % % Neutrophils # (1.6-8.9) K/mcL Lymphocytes # (0.6-4.6) K/mcL Monocytes # (0.0-1.3) K/mcL Eosinophils # (0.0-0.6) K/mcL Basophils # (0.0-0.2) K/mcL Platelet Estimate (Normal) Target Cells (Not Present) Sodium (136-145) mEq/L Potassium (3.5-5.1) mEq/L Chloride (98-107) mEq/L Carbon Dioxide (23-29) mEq/L BUN (8-23) mg/dL Creatinine (0.70-1.30) mg/dL Est GFR ( Amer) (> 60) Est GFR (Non-Af Amer) (> 60) BUN/Creatinine Ratio (6-26) Glucose (70-105) mg/dL Calculated Osmolality (280-300) Lactic Acid 0.6 (0.5-2.2) mmol/L Calcium (8.6-10.3) mg/dL Total Bilirubin (0.3-1.0) mg/dL AST (13-39) Units/L ALT (7-52) Units/L Alkaline Phosphatase (34-104) Units/L Troponin I (< 0.04) ng/mL B-Natriuretic Peptide 408 H (Less than 100) pg/mL Serum Total Protein (6.4-8.9) g/dL Albumin (3.5-5.7) g/dL Globulin (2.4-3.5) g/dL Albumin/Globulin Ratio (1.1-2.2) Lipase 46 (11-82) Units/L Result diagrams: 04/27/19 03:35 04/27/19 03:35 Lab Results 04/27/19 04/27/19 04/27/19 Range/Units 03:35 03:35 03:35 WBC 12.7 H (4.3-11.1) K/mcL RBC 2.89 L (4.19-5.50) M/mcL Hgb 10.5 L (12.9-16.9) g/dL Hct 29.8 L (37.5-50.1) % MCV 103.1 H (83.0-100.0) fL MCH 36.3 H (28.0-33.3) pg MCHC 35.2 (31.6-35.5) g/dL RDW 15.9 H (11.5-14.5) % Plt Count 230 (140-400) K/mcL MPV 9.7 (9.4-12.4) fL Immature Gran % 1.6 (0-4) % Seg Neutrophils % 86.8 % Lymphocytes % 0.8 % Monocytes % 10.6 % Eosinophils % 0.0 % Basophils % 0.2 % Neutrophils # 11.0 H (1.6-8.9) K/mcL Lymphocytes # 0.1 L (0.6-4.6) K/mcL Monocytes # 1.4 H (0.0-1.3) K/mcL Eosinophils # 0.0 (0.0-0.6) K/mcL Basophils # 0.0 (0.0-0.2) K/mcL Platelet Estimate Normal (Normal) Target Cells 1+ A (Not Present) Sodium 133 L (136-145) mEq/L Potassium 2.4 L* (3.5-5.1) mEq/L Chloride 87 L (98-107) mEq/L Carbon Dioxide 40 H* (23-29) mEq/L BUN 10 (8-23) mg/dL Creatinine 0.32 L (0.70-1.30) mg/dL Est GFR ( Amer) > 60 (> 60) Est GFR (Non-Af Amer) > 60 (> 60) BUN/Creatinine Ratio 31 H (6-26) Glucose 100 (70-105) mg/dL Calculated Osmolality 275 L (280-300) Lactic Acid (0.5-2.2) mmol/L Calcium 8.7 (8.6-10.3) mg/dL Total Bilirubin 0.4 (0.3-1.0) mg/dL AST 21 (13-39) Units/L ALT 25 (7-52) Units/L Alkaline Phosphatase 71 (34-104) Units/L Troponin I 0.03 (< 0.04) ng/mL B-Natriuretic Peptide (Less than 100) pg/mL Serum Total Protein 5.4 L (6.4-8.9) g/dL Albumin 3.6 (3.5-5.7) g/dL Globulin 1.8 L (2.4-3.5) g/dL Albumin/Globulin Ratio 2.0 (1.1-2.2) Lipase (11-82) Units/L 04/27/19 04/27/19 04/27/19 Range/Units 03:35 07:12 07:12 WBC (4.3-11.1) K/mcL RBC (4.19-5.50) M/mcL Hgb (12.9-16.9) g/dL Hct (37.5-50.1) % MCV (83.0-100.0) fL MCH (28.0-33.3) pg MCHC (31.6-35.5) g/dL RDW (11.5-14.5) % Plt Count (140-400) K/mcL MPV (9.4-12.4) fL Immature Gran % (0-4) % Seg Neutrophils % % Lymphocytes % % Monocytes % % Eosinophils % % Basophils % % Neutrophils # (1.6-8.9) K/mcL Lymphocytes # (0.6-4.6) K/mcL Monocytes # (0.0-1.3) K/mcL Eosinophils # (0.0-0.6) K/mcL Basophils # (0.0-0.2) K/mcL Platelet Estimate (Normal) Target Cells (Not Present) Sodium (136-145) mEq/L Potassium (3.5-5.1) mEq/L Chloride (98-107) mEq/L Carbon Dioxide (23-29) mEq/L BUN (8-23) mg/dL Creatinine (0.70-1.30) mg/dL Est GFR ( Amer) (> 60) Est GFR (Non-Af Amer) (> 60) BUN/Creatinine Ratio (6-26) Glucose (70-105) mg/dL Calculated Osmolality (280-300) Lactic Acid 0.6 (0.5-2.2) mmol/L Calcium (8.6-10.3) mg/dL Total Bilirubin (0.3-1.0) mg/dL AST (13-39) Units/L ALT (7-52) Units/L Alkaline Phosphatase (34-104) Units/L Troponin I (< 0.04) ng/mL B-Natriuretic Peptide 408 H (Less than 100) pg/mL Serum Total Protein (6.4-8.9) g/dL Albumin (3.5-5.7) g/dL Globulin (2.4-3.5) g/dL Albumin/Globulin Ratio (1.1-2.2) Lipase 46 (11-82) Units/L - Radiology Data Radiology results reviewed: Yes I reviewed the patient's radiology results. Chest CTA 04/27/19 03:14 IMPRESSION: No acute pulmonary embolism. Emphysematous changes with parenchymal opacities more conspicuous in the right upper lobe compared to the prior exam possibly due to multifocal pneumonia/pneumonitis. Peripancreatic inflammatory changes/fluid new from the prior exam. Please correlate for symptoms of acute pancreatitis. D/ / Nahun Smart / Nahun Smart Interpreting Provider: Nahun Smart Abdomen/Pelvis CT 04/27/19 06:02 IMPRESSION: 1. CT findings compatible with acute pancreatitis without evidence of complications such as pancreatic necrosis or pseudocyst formation. 2. No other evidence of an acute process in the abdomen/pelvis. 3. Atherosclerotic vascular calcifications identified. D/ / Nicholas Crawford MD / Nicholas Crawford MD Interpreting Provider: Nicholas Crawford MD - EKG Data EKG #1 EKG attestation: Yes I reviewed and interpreted this EKG.
[2019-04-27 08:15] LABS: Magnesium 1.8 mg/dL (1.6-2.6)
--- NOTE | 2019-04-27 08:15 | Internal Med History&Physical ---
Date of Encounter: 04/27/19 Time of Encounter: 07:53 Internal Medicine - H&P: HPI Chief complaint: SOB Admitted From: Emergency Dept History of present illness: Torres Arevalo is a 69 M w hx COPD on 2L, NSCLC, HTN, underweight, who presents with SOB. He states his symptoms started 3 weeks ago and have been progressive during that time, associated with increased cough and sputum production. Denies fevers/chills. [facility] and [facility] for COPD exacerbation for which he states he got several nebs and steroids, unsure if any abx but he doesn't think so, with some improvement and thus was discharged yesterday. Unfortunately, he had progressive symptoms and worsening SOB at home so came to [place] ED last night. He denies fevers, chest pain, abd pain, N/V, diaphoresis, leg swelling. In the ED, vitals T 98.5, HR 110, RR 20, SBP 120-160s, satting 100% on home 2L. Labs notable for WBC 13, Hb 10.5, MCV 103, Na 133, K 2.4, Cl 87, CO2 40, Cr 0.3, lactate 0.6, BNP 400, trop <0.03, lipase 46. CTPE negative for PE but shows RUL infiltrate and concern for multifocal PNA; it incidentally mentions peripancreatic changes. Follow up CT a/p redemonstrates said changes, no other acute abn. Past medical, surgical, social, and family histories reviewed and updated as below. 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 feet reconstruction surgery - Social History Smoking Status: Current some day smoker Smokeless Tobacco Status: No Alcohol use: occasionally Drug use: none - Family History Mother Hx Family Cancer: Yes (colon) Internal Medicine - H&P: Meds Prochlorperazine Maleate [Compazine] 10 mg PO Q6HR PRN #90 tablet 11/25/18 [Rx] Albuterol Neb [Proventil Neb] 2.5 mg IH Q6H PRN 12/23/18 [History] Albuterol Sulfate [Proventil Inhaler] 2 puff PO Q4H PRN 12/23/18 [History] Budesonide/Formoterol 160/4.5 [Symbicort 160/4.5] 2 puff IH BIDR 12/23/18 [Hi story] Tiotropium [place] [Spiriva Respimat] 2 puff IH DAILY 12/23/18 [History] Lisinopril [Zestril] 10 mg PO DAILY 02/23/19 [History] Sucralfate [Carafate] 1 gm PO QIDAC PRN tablet 03/12/19 [Rx] Alendronate Sodium 70 mg PO FR 04/04/19 [History] Aspirin Enteric Coated [Aspirin EC] 81 mg PO DAILY 04/04/19 [History] Calcium Carbonate 650 mg PO BID 04/04/19 [History] Cholecalciferol (D-3) [Vitamin D] 2,000 unit PO DAILY 04/04/19 [History] Ondansetron HCl 8 mg PO Q8H PRN 04/04/19 [History] Pantoprazole Sodium [Protonix] 40 mg PO DAILY 04/04/19 [History] Tamsulosin HCl [Flomax] 0.4 mg PO HS 04/04/19 [History] Varenicline [Chantix] 1 mg PO BID 04/04/19 [History] Ferrous Sulfate 325 mg PO BIDWM 30 Days #60 tablet 04/06/19 [Rx] Gabapentin 600 mg PO TID 30 Days #90 tablet 04/06/19 [Rx] Lidocaine Patch [Lidoderm 5% patch] 1 each TP DAILY 21 Days #21 adh..patch 04/06/19 [Rx] Metoprolol [Lopressor] 12.5 mg PO BID #30 tablet 04/06/19 [Rx] Morphine Sulfate ER (12 HR) [MS Contin] 1 tab PO Q8HR 7 Days #21 tab 04/06/19 [Rx] Oxycodone HCl [Roxybond] 5 - 15 mg PO Q6H PRN 5 Days #30 tablet.orl 04/06/19 [Rx] Allergy/AdvReac Type Severity Reaction Status Date / Time codeine Allergy Anaphylaxis Verified 03/10/19 20:24 fentanyl AdvReac Hallucinati Verified 03/10/19 20:24 ng All Systems PM: A 10-system review of systems was performed and is negative for pertinent findings except as documented above in the HPI. - Constitutional Vitals: Temp Pulse Resp BP Pulse Ox 98.5 F 103 22 122/99 100 04/27/19 02:56 04/27/19 05:00 04/27/19 05:00 04/27/19 05:00 04/27/19 05:00 Exam: General: NAD, good eye contact, elderly and chronically ill appearing, in no respiratory distress Head: Atraumatic, normocephalic. Face symmetric Eyes: EOMI, sclerae anicteric ENT: Mucous membranes dry. Normal oral mucosa, edentulous. Trachea midline. Thoracic: No visible chest wall deformities. Diffuse end expiratory wheezes, no egophony or focal coarse breath sounds appreciated posteriorly Cardio: Normal S1 and S2, regular rate and rhythm, no murmurs Abdomen: Soft, nontender, nondistended, scaphoid Extremities: Warm, well perfused. DP pulses 2+ b/l. No clubbing, cyanosis. No edema Skin: scattered superficial skin tears, largest on R hand not actively bleeding Neuro: Awake, fully oriented. Decent memory, good concentration and attention. Speech fluent. CN II-XII grossly intact. Strength 5/5 in b/l UE and LE Internal Med - H&P Results - Labs CBC & Chem 7: 04/27/19 03:35 04/27/19 03:35 Labs: Short CBC 04/27/19 Range/Units 03:35 WBC 12.7 H (4.3-11.1) K/mcL Hgb 10.5 L (12.9-16.9) g/dL Hct 29.8 L (37.5-50.1) % Plt Count 230 (140-400) K/mcL Neutrophils # 11.0 H (1.6-8.9) K/mcL BMP 04/27/19 03:35 Sodium 133 L Potassium 2.4 L* Chloride 87 L Carbon Dioxide 40 H* BUN 10 Creatinine 0.32 L Glucose 100 Calcium 8.7 Cardiac Enzymes 04/27/19 Range/Units 03:35 Troponin I 0.03 (< 0.04) ng/mL Liver Function 04/27/19 Range/Units 03:35 Total Bilirubin 0.4 (0.3-1.0) mg/dL AST 21 (13-39) Units/L ALT 25 (7-52) Units/L Alkaline Phosphatase 71 (34-104) Units/L Albumin 3.6 (3.5-5.7) g/dL - Impressions ITS Impressions Chest CTA 04/27/19 03:14 IMPRESSION: No acute pulmonary embolism. Emphysematous changes with parenchymal opacities more conspicuous in the right upper lobe compared to the prior exam possibly due to multifocal pneumonia/pneumonitis. Peripancreatic inflammatory changes/fluid new from the prior exam. Please correlate for symptoms of acute pancreatitis. D/ / Nahun Smart / Nahun Smart Interpreting Provider: Nahun Smart Abdomen/Pelvis CT 04/27/19 06:02 IMPRESSION: 1. CT findings compatible with acute pancreatitis without evidence of complications such as pancreatic necrosis or pseudocyst formation. 2. No other evidence of an acute process in the abdomen/pelvis. 3. Atherosclerotic vascular calcifications identified. D/ / Nicholas Crawford MD / Nicholas Crawford MD Interpreting Provider: Nicholas Crawford MD - Summary of Assessment and Plan Summary of Assessment and Plan: Torres Arevalo is a 69 M w hx COPD on 2L, NSCLC, HTN, underweight, who presents with SOB, SIRS 3/4, wheezing, recent hospitalization, CT showing RUL infiltrate, concerning for PNA causing sepsis and COPD exacerbation. Multifocal pneumonia: questionable, no fevers and actually is fairly clinically well appearing at time of my exam while at rest, could be persistent COPD exacerbation - UAg's, RVP, procal, MRSA nasal swab, sputum culture - continue empiric vanc and zosyn for now while awaiting labs/cultures Sepsis: SIRS 3/4 (afebrile), suspected infection as above, lactate wnl - BCx x2 pending - fluid boluses prn hypotension, s/p NS 1L in ED - empiric abx as above COPD in acute exacerbation: - nebs q4h&prn - prednisone 40 daily x5d, s/p solumedrol 125 in ED - azithromycin 500 po daily x5d - home inhalers Hypokalemia: K 2.4 on admit, given 40 po and 40 iv in ED - give additional 40 po - recheck K at noon Abnormal CT: peripancreatic inflammation but pt denies abd pain and lipase is wnl Macrocytic anemia: check iron, tsh, b12, folate Hypovolemic hyponatremia: & hypochloremia, s/p NS 1L in ED, will monitor Squamous cell carcinoma: of JULIANE, cT2 cN1 cMX, required endobronchial stent 10/2018; f/w [facility], earlier this year on carbo/taxol and radiation, home narcotics and gabapentin for cancern pain Chronic hypoxic respiratory failure: home 2L HTN: home lisinopril 10, lopressor 12.5 bid BPH: home flomax Smoker: nicotine replacement offered, cessation advised Underweight/Frailty: BMI 14, cancer as above, severe protein calorie malnutrition, nutrition consult, PT/OT consults, SW consult PPx: lovenox Tele: yes until K improves Activity: up ad joe FEN: regular, no MIVF Lines: PIV Consults: Code: [id number] Dispo: patient requires inpatient eval and management at this time, anticipate 2-3 days, suspect will need SNF
[2019-04-27] MEDS ORDERED: MOM Conc 10 ML UD.LIQ PO PRN (08:22)
[2019-04-27] MEDS ORDERED: Ondansetron 4 MG/2 ML VIAL IVP PRN (08:22)
[2019-04-27] MEDS ORDERED: Naloxone 0.4 MG/ML INJ IVP PRN (08:22)
[2019-04-27 08:56] LABS: Thyroid Stimulating Hormone 0.362 mcIU/mL (0.340-5.600)
[2019-04-27] MEDS: Budesonide/Formoterol 160/4.5 1 PUFF INH IH SCH ×2 (10:10→20:02)
[2019-04-27] MEDS ORDERED: *HR* OxyCODONE Immed Rel 5 MG TABLET PO PRN ×2 (10:16→11:44)
[2019-04-27 10:21] LABS: Folate 8.8 ng/mL (3.0-16.0); Procalcitonin < 0.02 ng/mL (0.00-0.15); Vitamin B12 466 pg/mL (250-1100)
[2019-04-27] MEDS: Aspirin Enteric Coated 81 MG Tablet PO SCH (10:23)
[2019-04-27] MEDS: Lisinopril 20 MG TABLET PO SCH (10:23)
[2019-04-27] MEDS: Gabapentin 300 MG CAPSULE PO SCH ×3 (10:23→21:26)
[2019-04-27 13:43] LABS: BUN/Creatinine Ratio 33 (6-26); Blood Urea Nitrogen 9 mg/dL (8-23); Carbon Dioxide 36 mEq/L (23-29); Chloride 94 mEq/L (98-107); Glucose 89 mg/dL (70-105); Osmolality,Calculated 276 (280-300); Potassium 3.4 mEq/L (3.5-5.1); Sodium 134 mEq/L (136-145); eGFR For African Americans > 60 (> 60); eGFR For Non-African Americans > 60 (> 60)
[2019-04-27] MEDS: Piperacillin/Tazobactam 3.375 GM in 0.9 % Sodium Chloride Mini Bag 100 ML IVPB SCH ×2 (14:00→17:13)
[2019-04-27] MEDS ORDERED: Morphine Sulfate ER (12 HR) 15 MG TABLET.ER PO SCH (16:00)
[2019-04-27] MEDS ORDERED: Ipratropium/Albuterol Neb 3 ML IH PRN (17:58)
[2019-04-27] MEDS: Acetaminophen 325 MG TABLET PO PRN (18:47)
[2019-04-27] MEDS: Ipratropium/Albuterol Neb 3 ML IH SCH ×2 (20:03→23:41)
[2019-04-27 22:51] LABS: Adenovirus Not Detected (Not Detect); Bordetella Pertussis Not Detected (Not Detect); Chlamydophila pneumoniae Not Detected (Not Detect); Coronavirus 229E Not Detected (Not Detect); Coronavirus HKU1 Not Detected (Not Detect); Coronavirus NL63 Not Detected (Not Detect); Coronavirus OC43 Not Detected (Not Detect); Human Metapneumovirus Not Detected (Not Detect); Human Rhinovirus/Enterovirus Not Detected (Not Detect); Influenza A Subtype 2009 H1 Not Detected (Not Detect); Influenza A Untypeable Not Detected (Not Detect); Influenza B Not Detected (Not Detect); Mycoplasma pneumoniae Not Detected (Not Detect); Parainfluenza Virus 1 Not Detected (Not Detect); Parainfluenza Virus 2 Not Detected (Not Detect); Parainfluenza Virus 3 Not Detected (Not Detect); Parainfluenza Virus 4 Not Detected (Not Detect); Respiratory Syncytial Virus Not Detected (Not Detect)
[2019-04-28] MEDS: Piperacillin/Tazobactam 3.375 GM in 0.9 % Sodium Chloride Mini Bag 100 ML IVPB SCH ×3 (00:01→15:45)
[2019-04-28] MEDS: Morphine Sulfate Immed Rel 15 MG TABLET PO PRN ×2 (01:07→09:14)
[2019-04-28] MEDS: Ipratropium/Albuterol Neb 3 ML IH SCH ×6 (04:18→23:48)
[2019-04-28] MEDS: *HR* Enoxaparin 40 MG/0.4 ML SYRINGE SQ SCH (05:20)
[2019-04-28] MEDS: *HR* OxyCODONE Immed Rel 5 MG TABLET PO SCH ×2 (05:22)
[2019-04-28 05:49] LABS: Hematocrit 26.9 % (37.5-50.1); Hemoglobin 9.3 g/dL (12.9-16.9); Mean Corpuscular HGB Conc 34.6 g/dL (31.6-35.5); Mean Corpuscular Hemoglobin 36.5 pg (28.0-33.3); Mean Corpuscular Volume 105.5 fL (83.0-100.0); Mean Platelet Volume 9.9 fL (9.4-12.4); Platelet Count 193 K/mcL (140-400); Red Blood Count 2.55 M/mcL (4.19-5.50); Red Cell Distribution Width 15.9 % (11.5-14.5); White Blood Count 11.9 K/mcL (4.3-11.1)
[2019-04-28 05:58] LABS: INR 0.9; Prothrombin Time 10.4 Seconds (9.4-12.1)
[2019-04-28 06:14] LABS: BUN/Creatinine Ratio 38 (6-26); Blood Urea Nitrogen 15 mg/dL (8-23); Calcium 8.1 mg/dL (8.6-10.3); Carbon Dioxide 32 mEq/L (23-29); Chloride 96 mEq/L (98-107); Glucose 146 mg/dL (70-105); Osmolality,Calculated 279 (280-300); Potassium 3.5 mEq/L (3.5-5.1); Sodium 133 mEq/L (136-145); Troponin I < 0.03 ng/mL (< 0.04); eGFR For African Americans > 60 (> 60); eGFR For Non-African Americans > 60 (> 60)
[2019-04-28] MEDS: Acetaminophen 325 MG TABLET PO PRN ×2 (06:52→18:44)
[2019-04-28] MEDS: Budesonide/Formoterol 160/4.5 1 PUFF INH IH SCH ×2 (07:12→19:58)
[2019-04-28] MEDS: Aspirin Enteric Coated 81 MG Tablet PO SCH (09:14)
[2019-04-28] MEDS: Gabapentin 300 MG CAPSULE PO SCH ×3 (09:14→20:11)
[2019-04-28] MEDS: Lisinopril 20 MG TABLET PO SCH (09:15)
[2019-04-28] MEDS: *HR* OxyCODONE Immed Rel 5 MG TABLET PO PRN ×3 (10:53→23:19)
--- NOTE | 2019-04-28 11:37 | Electrocardiograph Report ---
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
--- NOTE | 2019-04-28 14:59 | Internal Med Progress Note ---
Hospitalist Progress Note - Encounter Date of Encounter: 04/28/19 Time of Encounter: 10:30 - Subjective Interval History: No acute events overnight. Patient complains of 7/10 chest pain which he states he knows is related to his underlying lung cancer. He denies fever and chills. - Exam Vitals: Temp Pulse Resp BP Pulse Ox 37.1 C 98 16 144/79 98 04/28/19 11:18 04/28/19 11:18 04/28/19 11:18 04/28/19 11:18 04/28/19 11:18 Exam: GENERAL: Not in distress. Alert and Oriented HEENT: EOMI, PERRLA MOUTH: moist oral mucosa. NECK:No JVD, No lymph nodes. CHEST AND LUNGS: Normal breath sounds, no wheezes or crackles HEART: S1 and S2 normal, no murmurs ABDOMEN: Soft, nontender, no organomegaly SKIN: Patient has ecchymotic lesion on both upper and lower extremities. EXTREMITIES: No deformity, no edema, no tenderness, no joint swelling or clubbing NEUROLOGICAL: Normal cognition, normal motor and sensory exam. - Assessment and Plan (1) Multifocal pneumonia Current Visit: Yes Status: Acute Assessment and Plan: WBC trending down No fever overnight Continue vanc and Zosyn. Awaiting blood cultures (2) COPD exacerbation Current Visit: No Status: Acute Assessment and Plan: No wheezes heard on auscultation. Continue as needed breathing treatments Steroids (3) Chronic respiratory failure with hypoxia Current Visit: Yes Status: Acute Assessment and Plan: Patient on 2 L of oxygen at home Currently saturating well on the same volume of oxygen We will monitor (4) BPH (benign prostatic hyperplasia) Current Visit: Yes Status: Acute Assessment and Plan: On Flomax (5) Hypertension Current Visit: No Status: Chronic Assessment and Plan: On home lisinopril and Lopressor. (6) Lung cancer Current Visit: No Status: Chronic Assessment and Plan: Patient complains of chest pain which he attributes to his underlying lung cancer. We will give adequate analgesia. (7) Hypokalemia Current Visit: No Status: Resolved Assessment and Plan: Potassium currently at 3.5 We will monitor (8) Severe protein-calorie malnutrition Current Visit: Yes Status: Acute Assessment and Plan: BMI of 14 Patient admits that he has a poor appetite and is losing weight. Seen by supervisor rod placing. We will follow recommendations DVT Prophylaxis: Lovenox - Time Spent with Patient Total time spent is greater than 50% in coordination of care (as documented) at patient's floor/unit and/or counseling patient: Internal Medicine: Result - Labs CBC & Chem 7: 04/28/19 05:17 04/28/19 05:17 Labs: Short CBC 04/28/19 Range/Units 05:17 WBC 11.9 H (4.3-11.1) K/mcL Hgb 9.3 L (12.9-16.9) g/dL Hct 26.9 L (37.5-50.1) % Plt Count 193 (140-400) K/mcL BMP 04/28/19 05:17 Sodium 133 L Potassium 3.5 Chloride 96 L Carbon Dioxide 32 H BUN 15 Creatinine 0.39 L Glucose 146 H Calcium 8.1 L Cardiac Enzymes 04/28/19 Range/Units 05:17 Troponin I < 0.03 (< 0.04) ng/mL - ABG Interpretation ABG results: PT/INR, D-dimer PT 10.4 Seconds (9.4-12.1) 04/28/19 05:17 - Impressions Impressions Chest CTA 04/27/19 03:14 IMPRESSION: No acute pulmonary embolism. Emphysematous changes with parenchymal opacities more conspicuous in the right upper lobe compared to the prior exam possibly due to multifocal pneumonia/pneumonitis. Peripancreatic inflammatory changes/fluid new from the prior exam. Please correlate for symptoms of acute pancreatitis. D/ 04/27/2019 08:07:55 Nahun Smart / gladis Interpreting Provider: Nahun Smart Consult Discharge Plan - Plan [facility]errals: [facility] [Primary Care Provider] - (5) Hypertension Qualifiers: Hypertension type: essential hypertension Qualified Code(s): I10 - Essential (primary) hypertension (6) Lung cancer Qualifiers: Laterality: unspecified laterality Lung location: unspecified part of lung Qualified Code(s): C34.90 - Malignant neoplasm of unspecified part of unspecified bronchus or lung
[2019-04-28] MEDS: Morphine Sulfate ER (12 HR) 15 MG TABLET.ER PO SCH (15:45)
[2019-04-28] MEDS ORDERED: Ipratropium/Albuterol Neb 3 ML IH PRN (16:23)
[2019-04-28] MEDS ORDERED: GuaiFENesin Liq 200 MG/10 ML UDC PO PRN (18:45)
[2019-04-28] MEDS ORDERED: hydrALAZINE 10 MG TABLET PO PRN (18:45)
[2019-04-28] MEDS ORDERED: *HR* OxyCODONE/APAP 5/325 TABLET PO ONE (18:48)
[2019-04-29] MEDS: Piperacillin/Tazobactam 3.375 GM in 0.9 % Sodium Chloride Mini Bag 100 ML IVPB SCH ×4 (00:24→23:29)
[2019-04-29] MEDS: Morphine Sulfate ER (12 HR) 15 MG TABLET.ER PO SCH ×4 (00:24→23:28)
[2019-04-29] MEDS ORDERED: Acetaminophen IV 500 MG/50 ML INFUS..BTL IVPB ONE (02:55)
[2019-04-29] MEDS: Ipratropium/Albuterol Neb 3 ML IH SCH ×6 (04:06→23:53)
[2019-04-29] MEDS: *HR* Enoxaparin 40 MG/0.4 ML SYRINGE SQ SCH (05:16)
[2019-04-29] MEDS: *HR* OxyCODONE Immed Rel 5 MG TABLET PO PRN ×4 (05:19→23:28)
[2019-04-29] MEDS: Budesonide/Formoterol 160/4.5 1 PUFF INH IH SCH ×2 (07:21→19:38)
[2019-04-29 07:57] LABS: Eosinophils # 0.1 K/mcL (0.0-0.6); Eosinophils % 0.5 %; Hematocrit 27.3 % (37.5-50.1); Hemoglobin 9.3 g/dL (12.9-16.9); Immature Granulocytes % 0.9 % (0-4); Lymphocytes # 0.2 K/mcL (0.6-4.6); Lymphocytes % 2.3 %; Mean Corpuscular HGB Conc 34.1 g/dL (31.6-35.5); Mean Corpuscular Hemoglobin 36.3 pg (28.0-33.3); Mean Corpuscular Volume 106.6 fL (83.0-100.0); Mean Platelet Volume 9.7 fL (9.4-12.4); Monocytes # 0.8 K/mcL (0.0-1.3); Monocytes % 8.1 %; Neutrophils # 9.2 K/mcL (1.6-8.9); Platelet Count 174 K/mcL (140-400); Red Blood Count 2.56 M/mcL (4.19-5.50); Segmented Neutrophils % 88.2 %; White Blood Count 10.4 K/mcL (4.3-11.1)
[2019-04-29 08:20] LABS: BUN/Creatinine Ratio 50 (6-26); Blood Urea Nitrogen 15 mg/dL (8-23); Carbon Dioxide 37 mEq/L (23-29); Chloride 100 mEq/L (98-107); Glucose 94 mg/dL (70-105); Osmolality,Calculated 273 (280-300); Potassium 3.8 mEq/L (3.5-5.1); Sodium 131 mEq/L (136-145); eGFR For African Americans > 60 (> 60); eGFR For Non-African Americans > 60 (> 60)
[2019-04-29] MEDS: Gabapentin 300 MG CAPSULE PO SCH ×3 (08:38→20:59)
[2019-04-29] MEDS: Lisinopril 20 MG TABLET PO SCH (08:38)
[2019-04-29] MEDS: Aspirin Enteric Coated 81 MG Tablet PO SCH (08:39)
[2019-04-29] MEDS ORDERED: hydrALAZINE 10 MG TABLET PO PRN (09:25)
--- NOTE | 2019-04-29 11:27 | Internal Med Progress Note ---
Hospitalist Progress Note - Encounter Date of Encounter: 04/29/19 Time of Encounter: 07:45 - Subjective Interval History: No acute events overnight. Patient states that he had some chest pain last night but it has resolved. He also admits improvement in SOb and denies palpitations, fever and chills. He tolerated breakfast well and states that his appetite has improved. - Exam Vitals: Temp Pulse Resp BP Pulse Ox 36.1 C L 101 17 132/79 100 04/29/19 07:48 04/29/19 07:48 04/29/19 07:48 04/29/19 07:48 04/29/19 07:21 Exam: GENERAL: Not in distress. Alert and Oriented HEENT: EOMI, PERRLA MOUTH: moist oral mucosa. NECK:No JVD, No lymph nodes. CHEST AND LUNGS: Scattered wheezes biaterally. Transmitted sounds. No crackles HEART: S1 and S2 normal, no murmurs ABDOMEN: Soft, nontender, no organomegaly SKIN: Patient has ecchymotic lesion on both upper and lower extremities. EXTREMITIES: No deformity, no edema, no tenderness, no joint swelling or clubbing NEUROLOGICAL: Normal cognition, normal motor and sensory exam. - Assessment and Plan (1) Multifocal pneumonia Current Visit: Yes Status: Acute Assessment and Plan: WBC 10.4<11.9 No fever overnight Continue vanc and Zosyn. Strep pneumoniae and legionella antigens negative. Awaiting blood cultures (2) COPD exacerbation Current Visit: No Status: Acute Assessment and Plan: Scattered wheezes bilaterally on auscultation. Continue as needed breathing treatments. Steroids (3) Chronic respiratory failure with hypoxia Current Visit: Yes Status: Acute Assessment and Plan: Patient on 2 L of oxygen at home Currently saturating well on the same volume of oxygen We will continue to monitor (4) BPH (benign prostatic hyperplasia) Current Visit: Yes Status: Acute Assessment and Plan: On Flomax (5) Hypertension Current Visit: No Status: Chronic Assessment and Plan: BP controlled On home lisinopril and Lopressor. (6) Lung cancer Current Visit: No Status: Chronic Assessment and Plan: Currently denies chest pain He is being managed by oncology as outpatient. (7) Severe protein-calorie malnutrition Current Visit: Yes Status: Acute Assessment and Plan: BMI of 14 He ate most of his breakfast this morning and states that his appetite has improved. Seen by slot machine repairer. We will follow recommendations. (8) Sepsis Current Visit: Yes Status: Resolved Assessment and Plan: Patient was septic on admission with SIRS 4/4 and pneumonias of infection WBC has normalized and vitals are stable we will continue antibiotics and monitor (9) Shingles Current Visit: No Status: Acute DVT Prophylaxis: Lovenox - Time Spent with Patient Total time spent is greater than 50% in coordination of care (as documented) at patient's floor/unit and/or counseling patient: Internal Medicine: Result - Labs CBC & Chem 7: 04/29/19 07:41 04/29/19 07:41 Labs: Short CBC 04/29/19 Range/Units 07:41 WBC 10.4 (4.3-11.1) K/mcL Hgb 9.3 L (12.9-16.9) g/dL Hct 27.3 L (37.5-50.1) % Plt Count 174 (140-400) K/mcL Neutrophils # 9.2 H (1.6-8.9) K/mcL BMP 04/29/19 07:41 Sodium 131 L Potassium 3.8 Chloride 100 Carbon Dioxide 37 H BUN 15 Creatinine 0.30 L Glucose 94 Calcium 8.0 L - ABG Interpretation ABG results: PT/INR, D-dimer PT 10.4 Seconds (9.4-12.1) 04/28/19 05:17 Consult Discharge Plan - Plan Referrals: [facility] [Primary Care Provider] - (5) Hypertension Qualifiers: Hypertension type: essential hypertension Qualified Code(s): I10 - Essential (primary) hypertension (6) Lung cancer Qualifiers: Laterality: unspecified laterality Lung location: unspecified part of lung Qualified Code(s): C34.90 - Malignant neoplasm of unspecified part of uns pecified bronchus or lung (8) Sepsis Qualifiers: Sepsis type: sepsis due to unspecified organism Sepsis acute organ dysfunction status: with acute organ dysfunction Severe sepsis acute organ dysfunction type: unspecified Severe sepsis shock status: without septic shock Qualified Code(s): A41.9 - Sepsis, unspecified organism; R65.20 - Severe sepsis without septic shock (9) Shingles Qualifiers: Herpes zoster complications: without complications Qualified Code(s): B02.9 - Zoster without complications
[2019-04-29] MEDS: Acetaminophen 325 MG TABLET PO PRN (13:28)
[2019-04-30 03:07] LABS: Basophils % 0.1 %; Eosinophils # 0.1 K/mcL (0.0-0.6); Eosinophils % 1.3 %; Hematocrit 24.8 % (37.5-50.1); Hemoglobin 8.1 g/dL (12.9-16.9); Immature Granulocytes % 0.8 % (0-4); Lymphocytes # 0.2 K/mcL (0.6-4.6); Lymphocytes % 1.7 %; Mean Corpuscular HGB Conc 32.7 g/dL (31.6-35.5); Mean Corpuscular Hemoglobin 35.2 pg (28.0-33.3); Mean Corpuscular Volume 107.8 fL (83.0-100.0); Mean Platelet Volume 9.9 fL (9.4-12.4); Monocytes # 0.8 K/mcL (0.0-1.3); Monocytes % 7.2 %; Neutrophils # 9.4 K/mcL (1.6-8.9); Platelet Count 170 K/mcL (140-400); Red Cell Distribution Width 15.9 % (11.5-14.5); Segmented Neutrophils % 88.9 %; White Blood Count 10.6 K/mcL (4.3-11.1)
[2019-04-30 03:24] LABS: BUN/Creatinine Ratio 45 (6-26); Blood Urea Nitrogen 13 mg/dL (8-23); Calcium 7.9 mg/dL (8.6-10.3); Carbon Dioxide 35 mEq/L (23-29); Chloride 94 mEq/L (98-107); Glucose 100 mg/dL (70-105); Osmolality,Calculated 276 (280-300); Potassium 4.1 mEq/L (3.5-5.1); Sodium 133 mEq/L (136-145); eGFR For African Americans > 60 (> 60); eGFR For Non-African Americans > 60 (> 60)
[2019-04-30 03:35] LABS: Platelet Estimate Slight Decrease (Normal)
[2019-04-30] MEDS: Ipratropium/Albuterol Neb 3 ML IH SCH ×6 (03:42→23:36)
[2019-04-30] MEDS: Acetaminophen 325 MG TABLET PO PRN ×3 (04:20→21:05)
[2019-04-30] MEDS: *HR* Enoxaparin 40 MG/0.4 ML SYRINGE SQ SCH (05:58)
[2019-04-30] MEDS: *HR* OxyCODONE Immed Rel 5 MG TABLET PO PRN ×3 (05:58→18:02)
[2019-04-30] MEDS: Budesonide/Formoterol 160/4.5 1 PUFF INH IH SCH ×2 (07:42→20:26)
[2019-04-30] MEDS: Aspirin Enteric Coated 81 MG Tablet PO SCH (08:11)
[2019-04-30] MEDS: Gabapentin 300 MG CAPSULE PO SCH ×3 (08:11→21:03)
[2019-04-30] MEDS: Piperacillin/Tazobactam 3.375 GM in 0.9 % Sodium Chloride Mini Bag 100 ML IVPB SCH ×2 (08:12→15:35)
[2019-04-30] MEDS: Morphine Sulfate ER (12 HR) 15 MG TABLET.ER PO SCH ×2 (08:12→15:34)
[2019-04-30] MEDS: Lisinopril 20 MG TABLET PO SCH (08:12)
--- NOTE | 2019-04-30 12:08 | Internal Med Progress Note ---
Hospitalist Progress Note - Encounter Date of Encounter: 04/30/19 Time of Encounter: 08:25 - Subjective Interval History: Pt with a hx of COPD and lung Ca here for the management of pneumonia and COPD exacerbation. He states that he has noticed significant improvement in his breathing. Denies fever, chills, chest pain and palpitations. - Exam Vitals: Temp Pulse Resp BP Pulse Ox 36.6 C 96 18 152/79 95 04/30/19 11:11 04/30/19 11:11 04/30/19 11:11 04/30/19 11:11 04/30/19 11:11 Exam: GENERAL: Not in distress. Alert and Oriented HEENT: EOMI, PERRLA MOUTH: moist oral mucosa. NECK:No JVD, No lymph nodes. CHEST AND LUNGS: Few wheezes today Transmitted sounds. No crackles HEART: S1 and S2 normal, no murmurs ABDOMEN: Soft, nontender, no organomegaly SKIN: Patient has ecchymotic lesion on both upper and lower extremities. EXTREMITIES: No deformity, no edema, no tenderness, no joint swelling or clubbing NEUROLOGICAL: Normal cognition, normal motor and sensory exam. - Assessment and Plan (1) Multifocal pneumonia Current Visit: Yes Status: Acute Assessment and Plan: WBC 10.6 No fever overnight Continue vanc and Zosyn. Strep pneumoniae and legionella antigens negative. Awaiting blood cultures (2) COPD exacerbation Current Visit: No Status: Acute Assessment and Plan: Lung exam much better than yesterday. Less wheezing appreciated.. Continue as needed breathing treatments. Steroids (3) Chronic respiratory failure with hypoxia Current Visit: Yes Status: Acute Assessment and Plan: Patient on 2 L of oxygen at home Currently saturating well on the same volume of oxygen We will continue to monitor (4) BPH (benign prostatic hyperplasia) Current Visit: Yes Status: Acute Assessment and Plan: On Flomax (5) Hypertension Current Visit: No Status: Chronic Assessment and Plan: BP controlled On home lisinopril and Lopressor. (6) Lung cancer Current Visit: No Status: Chronic Assessment and Plan: Currently denies chest pain He is being managed by oncology as outpatient. (7) Severe protein-calorie malnutrition Current Visit: Yes Status: Acute Assessment and Plan: BMI of 14 Following dietary recommendations made by loan analyst. (8) Sepsis Current Visit: Yes Status: Resolved Assessment and Plan: Patient was septic on admission with SIRS 4/4 and pneumonias of infection WBC has normalized and vitals are stable we will continue antibiotics and monitor (9) Shingles Current Visit: No Status: Acute Assessment and Plan: Will give topical lidocaine. - Time Spent with Patient Total time spent is greater than 50% in coordination of care (as documented) at patient's floor/unit and/or counseling patient: Internal Medicine: Result - Labs CBC & Chem 7: 04/30/19 02:25 04/30/19 02:25 Labs: Short CBC 04/30/19 Range/Units 02:25 WBC 10.6 (4.3-11.1) K/mcL Hgb 8.1 L (12.9-16.9) g/dL Hct 24.8 L (37.5-50.1) % Plt Count 170 (140-400) K/mcL Neutrophils # 9.4 H (1.6-8.9) K/mcL BMP 04/30/19 02:25 Sodium 133 L Potassium 4.1 Chloride 94 L Carbon Dioxide 35 H BUN 13 Creatinine 0.29 L Glucose 100 Calcium 7.9 L - ABG Interpretation ABG results: PT/INR, D-dimer PT 10.4 Seconds (9.4-12.1) 04/28/19 05:17 Consult Discharge Plan - Plan Referrals: [facility] [Primary Care Provider] - (5) Hypertension Qualifiers: Hypertension type: essential hypertension Qualified Code(s): I10 - Essential (primary) hypertension (6) Lung cancer Qualifiers: Laterality: unspecified laterality Lung location: unspecified part of lung Qualified Code(s): C34.90 - Malignant neoplasm of unspecified part of unspecified bronchus or lung (8) Sepsis Qualifiers: Sepsis type: sepsis due to unspecified organism Sepsis acute organ dysfunction status: with acute organ dysfunction Severe sepsis acute organ dysfunction type: unspecified Severe sepsis shock status: without septic shock Qualified Code(s): A41.9 - Sepsis, unspecified organism; R65.20 - Severe sepsis without septic shock (9) Shingles Qualifiers: Herpes zoster complications: without complications Qualified Code(s): B02.9 - Zoster without complications
[2019-04-30] MEDS ORDERED: Lidocaine 4% CREAM (LMX) 5 GM TP PRN (12:28)
[2019-04-30] MEDS ORDERED: 0.9 % Sodium Chloride 250 ML ONE (17:44)
[2019-05-01] MEDS: Morphine Sulfate ER (12 HR) 15 MG TABLET.ER PO SCH ×2 (00:22→08:03)
[2019-05-01] MEDS: *HR* OxyCODONE Immed Rel 5 MG TABLET PO PRN ×2 (00:23→05:30)
[2019-05-01] MEDS: Ipratropium/Albuterol Neb 3 ML IH SCH ×3 (04:03→11:01)
[2019-05-01] MEDS ORDERED: Piperacillin/Tazobactam 3.375 GM in 0.9 % Sodium Chloride Mini Bag 100 ML IVPB SCH (05:00)
[2019-05-01] MEDS: *HR* Enoxaparin 40 MG/0.4 ML SYRINGE SQ SCH (05:30)
[2019-05-01] MEDS: Piperacillin/Tazobactam 3.375 GM in 0.9 % Sodium Chloride Mini Bag 100 ML IVPB SCH (07:07)
[2019-05-01 07:35] LABS: Basophils % 0.1 %; Eosinophils # 0.1 K/mcL (0.0-0.6); Eosinophils % 0.8 %; Hematocrit 23.6 % (37.5-50.1); Hemoglobin 7.9 g/dL (12.9-16.9); Immature Granulocytes % 0.8 % (0-4); Lymphocytes # 0.3 K/mcL (0.6-4.6); Lymphocytes % 3.2 %; Mean Corpuscular HGB Conc 33.5 g/dL (31.6-35.5); Mean Corpuscular Hemoglobin 35.9 pg (28.0-33.3); Mean Corpuscular Volume 107.3 fL (83.0-100.0); Mean Platelet Volume 9.8 fL (9.4-12.4); Monocytes # 0.9 K/mcL (0.0-1.3); Monocytes % 10.2 %; Neutrophils # 7.1 K/mcL (1.6-8.9); Platelet Count 151 K/mcL (140-400); Red Cell Distribution Width 16.1 % (11.5-14.5); Segmented Neutrophils % 84.9 %; White Blood Count 8.4 K/mcL (4.3-11.1)
[2019-05-01] MEDS: Budesonide/Formoterol 160/4.5 1 PUFF INH IH SCH (07:51)
[2019-05-01 07:54] LABS: BUN/Creatinine Ratio 42 (6-26); Blood Urea Nitrogen 14 mg/dL (8-23); Calcium 8.6 mg/dL (8.6-10.3); Carbon Dioxide 36 mEq/L (23-29); Chloride 91 mEq/L (98-107); Glucose 99 mg/dL (70-105); Osmolality,Calculated 271 (280-300); Potassium 4.6 mEq/L (3.5-5.1); Sodium 130 mEq/L (136-145); eGFR For African Americans > 60 (> 60); eGFR For Non-African Americans > 60 (> 60)
[2019-05-01 07:56] VITALS: BP 122/84
[2019-05-01] MEDS: Gabapentin 300 MG CAPSULE PO SCH (08:02)
[2019-05-01] MEDS: Aspirin Enteric Coated 81 MG Tablet PO SCH (08:02)
[2019-05-01] MEDS: Lisinopril 20 MG TABLET PO SCH (08:02)
--- NOTE | 2019-05-01 09:24 | Discharge Summary ---
Orders not resulted at time of discharge: Pending orders 04/27/19 07:12 Culture,Blood [BC] Stat Date of Encounter: 05/01/19 Time of Encounter: 09:22 - Discharge Diagnosis (1) Pneumonia Priority: Primary Status: Acute Assessment and Plan: Pt presented with worsening SOB, cough and fever. SPutum cultures postitive for klebsiella pneumo and pseudomonad both sensitive to levaquin. WBC has normalized. Vitals stable On Vanc and Zosyn Will DC on oral leavaquin. Qualifiers: Pneumonia type: due to Klebsiella pneumoniae Laterality: right Lung location: upper lobe of lung Qualified Code(s): J15.0 - Pneumonia due to Klebsiella pneumoniae (2) Sepsis Priority: Secondary Status: Resolved Qualifiers: Sepsis type: sepsis due to unspecified organism Sepsis acute organ dysfun ction status: with acute organ dysfunction Severe sepsis acute organ dysfunction type: unspecified Severe sepsis shock status: without septic shock Qualified Code(s): A41.9 - Sepsis, unspecified organism; R65.20 - Severe sepsis without septic shock (3) COPD exacerbation Priority: Secondary Status: Acute (4) Chronic respiratory failure with hypoxia Priority: Secondary Status: Acute (5) BPH (benign prostatic hyperplasia) Priority: Secondary Status: Chronic Qualifiers: Lower urinary tract symptom presence: symptoms absent Qualified Code(s): N40.0 - Benign prostatic hyperplasia without lower urinary tract symptoms (6) Hypertension Priority: Secondary Status: Chronic Qualifiers: Hypertension type: essential hypertension Qualified Code(s): I10 - Essential (primary) hypertension (7) Lung cancer Priority: Secondary Status: Chronic Qualifiers: Laterality: unspecified laterality Lung location: unspecified part of lung Qualified Code(s): C34.90 - Malignant neoplasm of unspecified part of unspecified bronchus or lung (8) Severe protein-calorie malnutrition Priority: Secondary Status: Acute (9) Shingles Priority: Secondary Status: Acute Qualifiers: Herpes zoster complications: without complications Qualified Code(s): B02.9 - Zoster without complications Hospital course: Mr. Arevalo is a 69 year old male with past medical history of COPD on 2 L, NSCLC, HTN and protein energy malnutrition. He presented to the ED for shortness of breath of 3 weeks' duration with associated cough and sputum production. He was septic at the time of presentation and was managed with IV antibiotics for pneumonia. Sputum cultures came positive for Klebsiella pneumonia and pseudomonas aeruginosa sensitive to Levaquin. Patient will be sent home with a 10 day course of by mouth Levaquin. Follow up with his PCP Discharge discussed with: patient, nurse, case management - Time Spent with Patient Total time spent providing and/or coordinating discharge services: Time spent: Greater than 30 minutes (40) - Discharge Medications Prescriptions: New levoFLOXacin [Levaquin] 750 mg PO DAILY #10 tablet Lidocaine 4% CRM (LMX) [Lmx 4] 2.5 gm TP DAILY #2 tube Continued Prochlorperazine Maleate [Compazine] 10 mg PO Q6HR PRN #90 tablet PRN Reason: Nausea Budesonide/Formoterol 160/4.5 [Symbicort 160/4.5] 2 puff IH BIDR Alendronate Sodium 70 mg PO FR Aspirin Enteric Coated [Aspirin EC] 81 mg PO DAILY Calcium Carbonate 650 mg PO BID Cholecalciferol (D-3) [Vitamin D] 2,000 unit PO DAILY Pantoprazole Sodium [Protonix] 40 mg PO DAILY Tamsulosin HCl [Flomax] 0.4 mg PO HS Ferrous Sulfate 325 mg PO BIDWM 30 Days #60 tablet Lidocaine Patch [Lidoderm 5% patch] 1 each TP DAILY 21 Days #21 adh..patch Oxycodone HCl [Roxybond] 5 - 15 mg PO Q6H PRN 5 Days #30 tablet.orl PRN Reason: Breakthrough Pain Metoprolol [Lopressor] 12.5 mg PO BID #30 tablet Albuterol Sulfate [Proair Hfa] 2 puff IH BID PRN PRN Reason: Shortness Of Breath Albuterol Sulfate [Proventil] 4 mg PO TID PRN PRN Reason: BREATHING Amitriptyline [Elavil] 50 mg PO HS Azithromycin [Azithromycin 6-Tab Pack] 500 mg PO DAILY Cefuroxime Axetil [Cefuroxime] 500 mg PO BID Guaifenesin [Tussin Mucus-Chest Congestion] 200 mg PO QID PRN PRN Reason: CHEST CONGESTION hydrALAZINE [HydrALAZINE] 10 mg PO Q6H PRN PRN Reason: Blood Pressure Ipratropium Neb [Atrovent Neb] 0.5 mg IH TID PRN PRN Reason: BREATHING Ipratropium/Albuterol Sulfate [Combivent Respimat 20-100 Mcg] 1 puff IH Q4H PRN PRN Reason: Wheezing Losartan Potassium [Cozaar] 50 mg PO DAILY Montelukast [Singulair] 10 mg PO DAILY Morphine Sulfate [Morphine Sulfate ER] 30 mg PO Q8H predniSONE [PredniSONE] See Taper PO AD Home Medications: Prochlorperazine Maleate [Compazine] 10 mg PO Q6HR PRN #90 tablet 11/25/18 [Rx] Budesonide/Formoterol 160/4.5 [Symbicort 160/4.5] 2 puff IH BIDR 12/23/18 [History] Alendronate Sodium 70 mg PO FR 04/04/19 [History] Aspirin Enteric Coated [Aspirin EC] 81 mg PO DAILY 04/04/19 [History] Calcium Carbonate 650 mg PO BID 04/04/19 [History] Cholecalciferol (D-3) [Vitamin D] 2,000 unit PO DAILY 04/04/19 [History] Pantoprazole Sodium [Protonix] 40 mg PO DAILY 04/04/19 [History] Tamsulosin HCl [Flomax] 0.4 mg PO HS 04/04/19 [History] Ferrous Sulfate 325 mg PO BIDWM 30 Days #60 tablet 04/06/19 [Rx] Lidocaine Patch [Lidoderm 5% patch] 1 each TP DAILY 21 Days #21 adh..patch 04/06/19 [Rx] Metoprolol [Lopressor] 12.5 mg PO BID #30 tablet 04/06/19 [Rx] Oxycodone HCl [Roxybond] 5 - 15 mg PO Q6H PRN 5 Days #30 tablet.orl 04/06/19 [Rx] Albuterol Sulfate [Proair Hfa] 2 puff IH BID PRN 04/27/19 [History] Albuterol Sulfate [Proventil] 4 mg PO TID PRN 04/27/19 [History] Amitriptyline [Elavil] 50 mg PO HS 04/27/19 [History] Azithromycin [Azithromycin 6-Tab Pack] 500 mg PO DAILY 04/27/19 [History] Cefuroxime Axetil [Cefuroxime] 500 mg PO BID 04/27/19 [History] Guaifenesin [Tussin Mucus-Chest Congestion] 200 mg PO QID PRN 04/27/19 [History] Ipratropium Neb [Atrovent Neb] 0.5 mg IH TID PRN 04/27/19 [History] Ipratropium/Albuterol Sulfate [Combivent Respimat 20-100 Mcg] 1 puff IH Q4H PRN 04/27/19 [History] Losartan Potassium [Cozaar] 50 mg PO DAILY 04/27/19 [History] Montelukast [Singulair] 10 mg PO DAILY 04/27/19 [History] Morphine Sulfate [Morphine Sulfate ER] 30 mg PO Q8H 04/27/19 [History] hydrALAZINE [HydrALAZINE] 10 mg PO Q6H PRN 04/27/19 [History] predniSONE [PredniSONE] See Taper PO AD 04/27/19 [History] Lidocaine 4% CRM (LMX) [Lmx 4] 2.5 gm TP DAILY #2 tube 05/01/19 [Rx] levoFLOXacin [Levaquin] 750 mg PO DAILY #10 tablet 05/01/19 [Rx] Allergies/Adverse Reactions: Allergy/AdvReac Type Severity Reaction Status Date / Time codeine Allergy Anaphylaxis Verified 04/27/19 22:28 fentanyl AdvReac Hallucinati Verified 04/27/19 22:28 ng Date of admission: 04/27/19 09:01 [facility] care physician: [facility] Consults: 04/27/19 08:07 Consult to Nutrition [CONS] Routine Comment: Consulting Provider: NUTRITION Reason for Dietary Consult: PO Supplementation 04/27/19 11:21 Consult to Occupational Therapy [CONS] Routine Comment: Evaluate, develop and implement POC Reason for Consult: frail Does patient have active BEDREST order?: No Is patient medically & hemodynamically stable?: Yes Consult to Physical Therapy [CONS] Routine Comment: Evaluate, develop and implement POC Reason for Consult: frail Does patient have active BEDREST order?: No Is patient medically & hemodynamically stable?: Yes Consult to Aquatics Coordinator ([facility]&[employer]) [CONS] Routine Reason For Exam: Reason for SW Consult: likely SNF 04/28/19 08:57 Consult to Nurse Navigator [CONS] Routine Comment: copd, pn - Constitutional Vitals: Temp Pulse Resp BP Pulse Ox 35.9 C L 110 18 122/84 93 05/01/19 07:48 05/01/19 07:48 05/01/19 07:50 05/01/19 07:48 05/01/19 07:50 Exam: GENERAL: Not in distress. Alert and Oriented. Looks emaciated HEENT: EOMI, PERRLA MOUTH: Moist oral mucosa NECK:No JVD, No lymph nodes. CHEST AND LUNGS: few wheezes scattered bilaterally. No crackles HEART: S1 and S2 normal, no murmurs ABDOMEN: Soft, nontender, no organomegaly SKIN: Normal color, no rahses, no lesions EXTREMITIES: No deformity, no edema, no tenderness, no joint swelling or clubbing NEUROLOGICAL: Normal cognition, normal motor and sensory exam. - Patient Status Disposition: Home, Self-Care Condition: Fair Functional capacity at discharge: independent ambulation Overall status at discharge: patient is progressing back to baseline - Discharge Instructions Follow Up With: [facility] [Primary Care Provider] - - Diet and Activity Activity: resume usual activities as tolerated Diet: advance to your usual diet
[2019-05-01] MEDS ORDERED: Aminoglycoside Consult 1 EACH MC ONE (12:02)
--- NOTE | 2019-05-02 09:28 | Physician Discharge Referral ---
Home Health/Hosp Referral Info Transfer to: Home Health - Diagnosis (1) Pneumonia Priority: Primary Status: Acute (2) Sepsis Priority: Secondary Status: Resolved (3) COPD exacerbation Priority: Secondary Status: Acute (4) Chronic respiratory failure with hypoxia Priority: Secondary Status: Acute (5) BPH (benign prostatic hyperplasia) Priority: Secondary Status: Chronic (6) Hypertension Priority: Secondary Status: Chronic (7) Lung cancer Priority: Secondary Status: Chronic (8) Severe protein-calorie malnutrition Priority: Secondary Status: Acute (9) Shingles Priority: Secondary Status: Acute - Respiratory Orders Smoking Cessation: Smoking cessation has been advised. For more information, call the [place] Tobacco Quit Line at 4-796-EBPG-NOW. - Transfer Medications Prescriptions: levoFLOXacin [Levaquin] 750 mg PO DAILY #10 tablet Lidocaine 4% CRM (LMX) [Lmx 4] 2.5 gm TP DAILY #2 tube Home Medications: Prochlorperazine Maleate [Compazine] 10 mg PO Q6HR PRN #90 tablet 11/25/18 [Rx] Budesonide/Formoterol 160/4.5 [Symbicort 160/4.5] 2 puff IH BIDR 12/23/18 [History] Alendronate Sodium 70 mg PO FR 04/04/19 [History] Aspirin Enteric Coated [Aspirin EC] 81 mg PO DAILY 04/04/19 [History] Calcium Carbonate 650 mg PO BID 04/04/19 [History] Cholecalciferol (D-3) [Vitamin D] 2,000 unit PO DAILY 04/04/19 [History] Pantoprazole Sodium [Protonix] 40 mg PO DAILY 04/04/19 [History] Tamsulosin HCl [Flomax] 0.4 mg PO HS 04/04/19 [History] Ferrous Sulfate 325 mg PO BIDWM 30 Days #60 tablet 04/06/19 [Rx] Lidocaine Patch [Lidoderm 5% patch] 1 each TP DAILY 21 Days #21 adh..patch 04/06/19 [Rx] Metoprolol [Lopressor] 12.5 mg PO BID #30 tablet 04/06/19 [Rx] Oxycodone HCl [Roxybond] 5 - 15 mg PO Q6H PRN 5 Days #30 tablet.orl 04/06/19 [Rx] Albuterol Sulfate [Proair Hfa] 2 puff IH BID PRN 04/27/19 [History] Albuterol Sulfate [Proventil] 4 mg PO TID PRN 04/27/19 [History] Amitriptyline [Elavil] 50 mg PO HS 04/27/19 [History] Azithromycin [Azithromycin 6-Tab Pack] 500 mg PO DAILY 04/27/19 [History] Cefuroxime Axetil [Cefuroxime] 500 mg PO BID 04/27/19 [History] Guaifenesin [Tussin Mucus-Chest Congestion] 200 mg PO QID PRN 04/27/19 [History] Ipratropium Neb [Atrovent Neb] 0.5 mg IH TID PRN 04/27/19 [History] Ipratropium/Albuterol Sulfate [Combivent Respimat 20-100 Mcg] 1 puff IH Q4H PRN 04/27/19 [History] Losartan Potassium [Cozaar] 50 mg PO DAILY 04/27/19 [History] Montelukast [Singulair] 10 mg PO DAILY 04/27/19 [History] Morphine Sulfate [Morphine Sulfate ER] 30 mg PO Q8H 04/27/19 [History] hydrALAZINE [HydrALAZINE] 10 mg PO Q6H PRN 04/27/19 [History] predniSONE [PredniSONE] See Taper PO AD 04/27/19 [History] Lidocaine 4% CRM (LMX) [Lmx 4] 2.5 gm TP DAILY #2 tube 05/01/19 [Rx] levoFLOXacin [Levaquin] 750 mg PO DAILY #10 tablet 05/01/19 [Rx] Allergies/Adverse Reactions: Allergy/AdvReac Type Severity Reaction Status Date / Time codeine Allergy Anaphylaxis Verified 04/27/19 22:28 fentanyl AdvReac Hallucinati Verified 04/27/19 22:28 ng Certification: Further, I certify that my clinical findings support that this patient is homebound (i.e. absences from home require considerable and taxing effort and a re for medical reasons or jew services or infrequently or short duration when for other reasons) because: Homebound Reason: Severity of cardiac or pulmonary status limits activity tolerance Attestation: My signature below is to certify that this patient is under my care and that I, or nurse practitioner, or a physician's players assistant working with me, has a [id number] encounter with this patient.
== END 2019-05-01 12:03 | disposition home or self-care (01) ==
LOC: EMEROOARM 02:51 → 2ANU 02:51 → SUATTDRO 09:01
PROVIDERS: ADMIT Internal Medicine; ATTEND Internal Medicine

== ENCOUNTER 2019-08-18 10:34 | Inpatient (IN) ==
[2019-08-18] MEDS ORDERED: Ipratropium/Albuterol Neb 3 ML IH ONE (10:49)
[2019-08-18] MEDS ORDERED: Ipratropium/Albuterol Neb 3 ML ONE (10:50)
[2019-08-18] MEDS ORDERED: predniSONE 20 MG TABLET PO ONE (10:52)
[2019-08-18] MEDS: Ipratropium/Albuterol Neb 3 ML IH ONE ×2 (10:53→10:54)
[2019-08-18 11:28] LABS: Hematocrit 22.1 % (37.5-50.1); Mean Corpuscular HGB Conc 31.7 g/dL (31.6-35.5); Mean Corpuscular Hemoglobin 27.7 pg (28.0-33.3); Mean Corpuscular Volume 87.4 fL (83.0-100.0); Mean Platelet Volume 10.6 fL (9.4-12.4); Platelet Count 139 K/mcL (140-400); Red Blood Count 2.53 M/mcL (4.19-5.50); Red Cell Distribution Width 19.9 % (11.5-14.5)
[2019-08-18 11:51] LABS: BUN/Creatinine Ratio 23 (6-26); Blood Urea Nitrogen 9 mg/dL (8-23); Calcium 10.2 mg/dL (8.6-10.3); Carbon Dioxide 28 mEq/L (23-29); Chloride 90 mEq/L (98-107); Glucose 78 mg/dL (70-105); Osmolality,Calculated 264 (280-300); Potassium 4.2 mEq/L (3.5-5.1); Sodium 128 mEq/L (136-145); eGFR For African Americans > 60 (> 60); eGFR For Non-African Americans > 60 (> 60)
[2019-08-18] MEDS ORDERED: Piperacillin/Tazobactam 3.375 GM in 0.9 % Sodium Chloride Mini Bag 100 ML IVPB ONE (11:55)
[2019-08-18] MEDS ORDERED: 0.9 % Sodium Chloride 250 ML ONE ×2 (13:31→18:23)
[2019-08-18] MEDS ORDERED: Naloxone 0.4 MG/ML INJ IVP PRN (13:43)
[2019-08-18] MEDS ORDERED: Ipratropium/Albuterol Neb 3 ML IH PRN (16:31)
[2019-08-18] MEDS ORDERED: Ondansetron ODT 4 MG TAB.RAPDIS PO PRN (17:20)
[2019-08-18] MEDS ORDERED: GuaiFENesin Liq 200 MG/10 ML UDC PO PRN (17:20)
[2019-08-18] MEDS: Azithromycin 500 MG in 0.9 % Sodium Chloride 250 ML IVPB SCH (18:40)
[2019-08-18 20:13] LABS: Bilirubin,Urine Moderate (Negative); Blood,Urine Negative (Negative); Clarity,Urine Cloudy (Clear); Color,Urine Dark Yellow (Yellow); Glucose,Urine (UA) Normal (Normal); Ketones,Urine 15 mg/dL (Negative); Leukocyte Esterase,Urine Negative (Negative); Nitrite,Urine Negative (Negative); Protein,Urine Negative (Neg-Trace); Specific Gravity,Urine 1.028 (1.010-1.025); Urobilinogen,Urine Normal (Normal)
[2019-08-18 20:14] LABS: Bacteria,Urine None Seen per hpf (None-Few); Hyaline Casts,Urine None Seen per lpf (None-Few); RBC,Urine 0-3 per hpf (0-3); Squamous Epithelial Cell,Urine Many per lpf (None-Few)
[2019-08-18] MEDS: Morphine Sulfate ER (12 HR) 30 MG TABLET.ER PO SCH (20:29)
[2019-08-18] MEDS: Benzonatate 100 MG CAPSULE PO SCH (20:29)
[2019-08-18] MEDS: Metoprolol XL (24 HR) Succ 25 MG TAB.ER.24H PO SCH (20:30)
[2019-08-19] MEDS: MethylPREDNISolone 40 MG/ML VIAL IVP SCH ×3 (00:15→16:44)
[2019-08-19] MEDS: *HR* OxyCODONE Immed Rel 5 MG TABLET PO PRN ×3 (00:22→18:58)
[2019-08-19] MEDS: Morphine Sulfate ER (12 HR) 30 MG TABLET.ER PO SCH ×3 (04:03→20:25)
[2019-08-19 06:58] LABS: Basophils % 0.1 %; Hematocrit 30.6 % (37.5-50.1); Lymphocytes # 0.2 K/mcL (0.6-4.6); Lymphocytes % 1.3 %; Mean Corpuscular HGB Conc 34.3 g/dL (31.6-35.5); Mean Corpuscular Hemoglobin 28.4 pg (28.0-33.3); Mean Corpuscular Volume 82.7 fL (83.0-100.0); Mean Platelet Volume 10.6 fL (9.4-12.4); Monocytes # 0.4 K/mcL (0.0-1.3); Monocytes % 3.6 %; Neutrophils # 10.5 K/mcL (1.6-8.9); Platelet Count 100 K/mcL (140-400); Red Cell Distribution Width 17.7 % (11.5-14.5); White Blood Count 11.2 K/mcL (4.3-11.1)
[2019-08-19 07:10] LABS: BUN/Creatinine Ratio 37 (6-26); Blood Urea Nitrogen 13 mg/dL (8-23); Calcium 9.6 mg/dL (8.6-10.3); Carbon Dioxide 26 mEq/L (23-29); Chloride 93 mEq/L (98-107); Glucose 166 mg/dL (70-105); Hemoglobin 10.5 g/dL (12.9-16.9); Osmolality,Calculated 268 (280-300); Potassium 4.9 mEq/L (3.5-5.1); Sodium 127 mEq/L (136-145); eGFR For African Americans > 60 (> 60); eGFR For Non-African Americans > 60 (> 60)
[2019-08-19 07:31] LABS: Platelet Estimate Slight Decrease (Normal)
[2019-08-19] MEDS: Cholecalciferol (D-3) 1,000 UNIT (25MCG) TABLET PO SCH (10:01)
[2019-08-19] MEDS: Benzonatate 100 MG CAPSULE PO SCH ×2 (10:01→20:25)
[2019-08-19] MEDS: Aspirin Enteric Coated 81 MG Tablet PO SCH (10:01)
[2019-08-19] MEDS: cefTRIAXone 2,000 MG in Water for inj. (sterile) 20 ML IVP SCH (10:01)
[2019-08-19] MEDS: Metoprolol XL (24 HR) Succ 25 MG TAB.ER.24H PO SCH ×2 (10:01→20:25)
[2019-08-19] MEDS: Azithromycin 500 MG in 0.9 % Sodium Chloride 250 ML IVPB SCH (16:44)
[2019-08-20] MEDS: MethylPREDNISolone 40 MG/ML VIAL IVP SCH ×3 (00:23→17:15)
[2019-08-20] MEDS: Morphine Sulfate ER (12 HR) 30 MG TABLET.ER PO SCH ×3 (04:38→20:59)
[2019-08-20 05:19] LABS: Segmented Neutrophils % 92.9 %
[2019-08-20 05:21] LABS: Basophils % 0.1 %; Hematocrit 34.6 % (37.5-50.1); Hemoglobin 11.9 g/dL (12.9-16.9); Immature Granulocytes % 1.4 % (0-4); Immature Platelets 13.3 % (1.1-6.1); Lymphocytes # 0.2 K/mcL (0.6-4.6); Lymphocytes % 1.1 %; Mean Corpuscular HGB Conc 34.4 g/dL (31.6-35.5); Mean Corpuscular Hemoglobin 28.5 pg (28.0-33.3); Mean Platelet Volume 11.8 fL (9.4-12.4); Monocytes # 0.8 K/mcL (0.0-1.3); Monocytes % 4.5 %; Neutrophils # 15.6 K/mcL (1.6-8.9); Red Blood Count 4.17 M/mcL (4.19-5.50); Red Cell Distribution Width 18.4 % (11.5-14.5); White Blood Count 16.8 K/mcL (4.3-11.1)
[2019-08-20 05:38] LABS: BUN/Creatinine Ratio 40 (6-26); Blood Urea Nitrogen 17 mg/dL (8-23); Calcium 10.1 mg/dL (8.6-10.3); Carbon Dioxide 28 mEq/L (23-29); Chloride 93 mEq/L (98-107); Glucose 133 mg/dL (70-105); Magnesium 1.7 mg/dL (1.6-2.6); Osmolality,Calculated 271 (280-300); Phosphorous 3.3 mg/dL (2.7-4.5); Potassium 4.9 mEq/L (3.5-5.1); Sodium 129 mEq/L (136-145); eGFR For African Americans > 60 (> 60); eGFR For Non-African Americans > 60 (> 60)
[2019-08-20 05:51] LABS: Platelet Count 81 K/mcL (140-400)
[2019-08-20 05:52] LABS: Platelet Estimate Decreased (Normal)
[2019-08-20] MEDS: Aspirin Enteric Coated 81 MG Tablet PO SCH (08:10)
[2019-08-20] MEDS: Cholecalciferol (D-3) 1,000 UNIT (25MCG) TABLET PO SCH (08:10)
[2019-08-20] MEDS: Metoprolol XL (24 HR) Succ 25 MG TAB.ER.24H PO SCH ×2 (08:10→21:00)
[2019-08-20] MEDS: Benzonatate 100 MG CAPSULE PO SCH ×2 (08:10→20:59)
[2019-08-20] MEDS: cefTRIAXone 2,000 MG in Water for inj. (sterile) 20 ML IVP SCH (08:11)
[2019-08-20] MEDS: *HR* OxyCODONE Immed Rel 5 MG TABLET PO PRN ×2 (08:16→15:51)
[2019-08-20] MEDS: Azithromycin 500 MG in 0.9 % Sodium Chloride 250 ML IVPB SCH (17:15)
[2019-08-21] MEDS: MethylPREDNISolone 40 MG/ML VIAL IVP SCH ×3 (00:40→17:25)
[2019-08-21] MEDS: Morphine Sulfate ER (12 HR) 30 MG TABLET.ER PO SCH ×3 (04:55→19:43)
[2019-08-21 06:53] LABS: Basophils % 0.2 %; Hematocrit 35.6 % (37.5-50.1); Hemoglobin 11.7 g/dL (12.9-16.9); Immature Granulocytes % 0.8 % (0-4); Immature Platelets 13.1 % (1.1-6.1); Lymphocytes # 0.2 K/mcL (0.6-4.6); Lymphocytes % 0.9 %; Mean Corpuscular HGB Conc 32.9 g/dL (31.6-35.5); Mean Corpuscular Hemoglobin 28.3 pg (28.0-33.3); Mean Corpuscular Volume 86.2 fL (83.0-100.0); Monocytes # 1.2 K/mcL (0.0-1.3); Monocytes % 5.7 %; Red Blood Count 4.13 M/mcL (4.19-5.50); Red Cell Distribution Width 19.6 % (11.5-14.5); Segmented Neutrophils % 92.4 %; White Blood Count 21.5 K/mcL (4.3-11.1)
[2019-08-21 06:54] LABS: Neutrophils # 19.9 K/mcL (1.6-8.9); Platelet Count 55 K/mcL (140-400)
[2019-08-21 07:12] LABS: BUN/Creatinine Ratio 49 (6-26); Blood Urea Nitrogen 19 mg/dL (8-23); Calcium 10.3 mg/dL (8.6-10.3); Carbon Dioxide 27 mEq/L (23-29); Chloride 95 mEq/L (98-107); Glucose 97 mg/dL (70-105); Osmolality,Calculated 274 (280-300); Potassium 4.5 mEq/L (3.5-5.1); Sodium 131 mEq/L (136-145); eGFR For African Americans > 60 (> 60); eGFR For Non-African Americans > 60 (> 60)
[2019-08-21] MEDS: cefTRIAXone 2,000 MG in Water for inj. (sterile) 20 ML IVP SCH (08:32)
[2019-08-21] MEDS: Metoprolol XL (24 HR) Succ 25 MG TAB.ER.24H PO SCH ×2 (08:32→19:43)
[2019-08-21] MEDS: Cholecalciferol (D-3) 1,000 UNIT (25MCG) TABLET PO SCH (08:32)
[2019-08-21] MEDS: Benzonatate 100 MG CAPSULE PO SCH ×2 (08:32→19:42)
[2019-08-21] MEDS: Aspirin Enteric Coated 81 MG Tablet PO SCH (08:32)
[2019-08-21] MEDS: 0.9 % Sodium Chloride 1,000 ML IVC SCH ×2 (08:33→19:43)
[2019-08-21] MEDS: Azithromycin 500 MG in 0.9 % Sodium Chloride 250 ML IVPB SCH (17:25)
[2019-08-22] MEDS ORDERED: Isovue-370 500 ML BOTTLE IVP ONE (00:41)
[2019-08-22] MEDS: MethylPREDNISolone 40 MG/ML VIAL IVP SCH ×2 (02:23→09:03)
[2019-08-22] MEDS: Morphine Sulfate ER (12 HR) 30 MG TABLET.ER PO SCH (04:23)
[2019-08-22 08:33] VITALS: BP 147/85
[2019-08-22] MEDS: Benzonatate 100 MG CAPSULE PO SCH (08:49)
[2019-08-22] MEDS: Cholecalciferol (D-3) 1,000 UNIT (25MCG) TABLET PO SCH (08:49)
[2019-08-22] MEDS: Aspirin Enteric Coated 81 MG Tablet PO SCH (08:49)
[2019-08-22] MEDS: Metoprolol XL (24 HR) Succ 25 MG TAB.ER.24H PO SCH (08:49)
[2019-08-22] MEDS: cefTRIAXone 2,000 MG in Water for inj. (sterile) 20 ML IVP SCH (08:50)
== END 2019-08-22 11:26 | disposition hospice, inpatient (51) | DRG 193 ==
LOC: 2ANU 10:34 → EMEROOARM 10:34 → SUATTDRO 12:55 → 2ANU 14:11
PROVIDERS: ADMIT Internal Medicine; ATTEND Internal Medicine